=== PATIENT | male | born 1960 | race Caucasian/White ===

== ENCOUNTER 2017-07-01 08:45 | Emergency (ER) | payer BC ==
--- OUTSIDE RECORDS SUMMARY | 2017-07-01 08:47 | XMS REPORT | Clinical Summary ---
:1960 Author Organization [facility] Address [address] [place] [address] Care Team Providers Name Role Phone Asked, No Pcp Primary Care Provider Unavailable Allergies Active Allergy Reactions Severity Noted Date Comments Sulfa (Sulfonamide Antibiotics) 02/22/2016 Current Medications Prescription Sig. Disp. Refills Start Date End Date Status azithromycin TK 1 T PO D UTD 0 02/18/2016 Active (ZITHROMAX) 250 MG PER PACKAGE tablet DIRECTIONS sitagliptin-metfor Take 2 tablets Active min (JANUMET) by mouth daily. 50-1,000 mg per tablet fluticasone 1 spray into 16 g 2 02/22/2016 Active (FLONASE) 50 each nostril mcg/actuation daily. nasal spray DULERA 200-5 03/26/2016 Active mcg/actuation inhaler JARDIANCE 25 mg 03/14/2016 Active tablet albuterol sulfate Inhale 180 mcg 1 each 2 06/06/2016 Active 90 mcg/actuation every 4 (four) aerosol powdr hours. breath activated montelukast TAKE 1 TABLET(10 90 tablet 1 07/04/2016 Active (SINGULAIR) 10 mg MG) BY MOUTH tablet EVERY NIGHT mometasone-formote Inhale 1 puff 2 13 g 3 08/04/2016 Active rol (DULERA 200) (two) times a 200-5 day. mcg/actuation inhaler omeprazole TAKE 1 30 capsule 2 08/22/2016 Active (PriLOSEC) 20 MG CAPSULE(20 MG) capsule BY MOUTH DAILY amLODIPine Take 1 tablet 30 tablet 0 02/22/2016 (NORVASC) 10 MG (10 mg total) by 7 tablet mouth daily. cetirizine Take 1 tablet 30 tablet 2 02/22/2016 (ZyrTEC) 10 MG (10 mg total) by 7 tablet mouth daily. mometasone-formote Inhale 2 puffs 2 13 g 3 04/06/2016 Discontinued rol (DULERA 200) (two) times a 7 200-5 day. mcg/actuation inhaler omeprazole Take 1 capsule 30 capsule 1 06/06/2016 Discontinued (PriLOSEC) 20 MG (20 mg total) by 7 capsule mouth daily for 90 days. montelukast TAKE 1 TABLET(10 30 tablet 0 06/22/2016 Discontinued (SINGULAIR) 10 mg MG) BY MOUTH 7 tablet EVERY NIGHT Active Problems Problem Noted Date NOEMY (obstructive sleep apnea) 06/11/2016 Gastroesophageal reflux disease without esophagitis 06/11/2016 Moderate persistent asthma without complication 02/29/2016 Seasonal allergic rhinitis due to pollen 02/29/2016 Morbid obesity due to excess calories 02/29/2016 Type 2 diabetes mellitus with complication 02/29/2016 Encounters Date Type Specialty Care Team Description 08/24/2016 Telephone Pulmonology Carlita Flood MA 08/19/2016 Refill Pulmonology Rossana Rhodes MD 08/08/2016 Orders Only Pulmonology Mariela Hyde MA Moderate persistent asthma without complication; Seasonal allergic rhinitis due to pollen; NOEMY (obstructive sleep apnea) 08/04/2016 Office Visit Pulmonology Rossana Rhodes MD Moderate persistent asthma without complication (Primary Dx); Seasonal allergic rhinitis due to pollen; NOEMY (obstructive sleep apnea); Morbid obesity due to excess calories 07/04/2016 Refill Pulmonology Nneka Vanessa MA after 06/30/2016 Immunizations Name Dates Previously Given Next Due INFLUENZA QUAD PF (0.5ML VIAL) 02/29/2016 Family History Medical History Relation Name Comments Cancer Father prostate Allergies Mother Hypertension Mother Relation Name Status Comments Father (Age 92) Mother (Age 96) Social History Tobacco Use Types Packs/Day Years Used Date Never Smoker Alcohol Use Drinks/Week oz/Week Comments No Sex Assigned at Date Recorded Not on file Last Filed Vital Signs Vital Sign Reading Time Taken Blood Pressure 138/92 08/04/2016 3:35 PM CDT Pulse 118 08/04/2016 3:35 PM CDT Temperature 36.4 C (97.6 F) 08/04/2016 3:35 PM CDT Respiratory Rate - - Oxygen Saturation 94% 08/04/2016 3:35 PM CDT Inhaled Oxygen Concentration - - Weight 130 kg (286 lb 6.4 oz) 08/04/2016 3:35 PM CDT Height 175.3 cm (5' 9") 08/04/2016 3:35 PM CDT Body Mass Index 42.29 08/04/2016 3:35 PM CDT Plan of Treatment Health Maintenance Due Date Last Done Comments FOOT EXAM 1969 OPHTHALMOLOGY EXAM 1969 URINE MICROALBUMIN 1969 COLONOSCOPY 2009 INFLUENZA VACCINE 11/01/2016 02/29/2016 Results Ambulatory referral to Sleep Medicine (08/08/2016 3:45 PM)after 06/30/2016 Insurance Payer Benefit Plan / Group Subscriber ID Type Phone Address BCBS BCBS CHOICE PPO/FEDERAL EMPL PPO xxxxxxxxxxxx PPO
[2017-07-01 09:38] LABS: Urine Blood NEGATIVE (NEG); Urine Glucose 2+ (NEG); Urine Protein NEGATIVE (NEG); Urine pH 5.5 (5.0-7.0)
[2017-07-01 09:51] LABS: Absolute Lymphocytes (CBC) 2.5 K/uL (0.7-4.9); Absolute Monocytes 0.7 K/uL (0.1-1.3); Basophils % 1.3 % (0-1.3); Eosinophils % 1.8 % (0-4.4); Hematocrit 47.1 % (39.6-49.0); Lymphocytes % 26.2 % (15.3-44.8); MCH 25.4 pg (27.0-35.0); MCV 80.7 fL (80-100); MPV 9.4 fL (7.6-11.3); Monocytes % 7.8 % (3.3-12.3); RBC Red Blood Cell Count 5.83 M/uL (4.33-5.43)
[2017-07-01 10:01] LABS: BUN Blood Urea Nitrogen 15 mg/dL (6-20); Glucose Level 329 mg/dL (65-120)
[2017-07-01 10:02] LABS: Bicarbonate 30 mEq/L (21-31); Sodium Level 138 mEq/L (135-145)
[2017-07-01] MEDS ORDERED: NA CHLORIDE 0.9% 1,000 ML ONE (10:10)
[2017-07-01] MEDS ORDERED: ACETAMINOPHEN 500 MG TAB ONE (10:10)
--- NOTE | 2017-07-01 11:06 | EDPHYS ---
Physician Documentation [facility] Name: Jose E Yañez Age: 57 yrs Sex: Male : 1960 Arrival Date: 07/01/2017 Time: 08:49 Bed 18 Private MD: ED Physician Aly Ortega HPI: 07/01 09:25 This 57 yrs old Male presents to ER via Ambulatory with complaints of kb Headache, High Blood Sugar. 09:25 The patient or guardian reports hyperglycemia, that was potentially precipitated by has kb been out of meds for a couple of weeks. Onset: The symptoms/episode began/occurred 2 week(s) ago. Associated signs and symptoms: Pertinent positives: None. Current symptoms: In the emergency department the patient's symptoms are unchanged from the initial presentation. The patient has experienced similar episodes in the past, chronically. The patient has not recently seen a physician. 09:26 Pt states "my insurance changed to [employer] and my director of maternity services didn't pay kb attention when they requested 3 month refills so I have been out of my meds." Reports BGL in the 300s for the past couple of weeks, but this morning it was 400. 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 Also reports headache that started at 0300. Did not take anything for pain. . Historical: - Allergies: 09:21 Sulfa (Sulfonamide Antibiotics); em - Home Meds: 09:30 Xarelto 20 mg oral tab 1 tab once daily [Active]; metoprolol tartrate 25 mg Oral tab em [Active]; rosuvastatin 5 mg oral tab [Active]; Janumet XR 50-1,000 mg oral TM24 [Active]; - PMHx: 09:21 Diabetes - NIDDM; Atrial Fib; em - PSHx: 09:21 right foot surgery; em - Immunization history:: Adult Immunizations up to date. - Social history:: Smoking status: Patient/guardian denies using tobacco. ROS: 09:26 Constitutional: Negative for fever, chills, and weight loss, Cardiovascular: Negative kb for chest pain, palpitations, and edema, Respiratory: Negative for shortness of breath, cough, wheezing, and pleuritic chest pain, Abdomen/GI: Negative for abdominal pain, nausea, vomiting, diarrhea, and constipation, : Negative for injury, bleeding, discharge, and swelling, MS/Extremity: Negative for injury and deformity, Skin: Negative for injury, rash, and discoloration. 09:26 Neuro: Positive for headache, Negative for altered mental status, dizziness, gait disturbance, hearing loss, loss of consciousness, numbness, seizure activity, speech changes, syncope, near syncope, tingling, tinnitus, tremor, visual changes, weakness. Exam: 09:26 Constitutional: This is a well developed, well nourished patient who is awake, alert, kb and in no acute distress. Head/Face: Normocephalic, atraumatic. ENT: Nares patent. No nasal discharge, no septal abnormalities noted. Tympanic membranes are normal and external auditory canals are clear. Oropharynx with no redness, swelling, or masses, exudates, or evidence of obstruction, uvula midline. Mucous membranes moist. Neck: Trachea midline, no thyromegaly or masses palpated, and no cervical lymphadenopathy. Supple, full range of motion without nuchal rigidity, or vertebral point tenderness. No Meningismus. Chest/axilla: Normal chest wall appearance and motion. Nontender with no deformity. No lesions are appreciated. Cardiovascular: Regular rate and rhythm with a normal S1 and S2. No gallops, murmurs, or rubs. Normal PMI, no JVD. No pulse deficits. Respiratory: Lungs have equal breath sounds bilaterally, clear to auscultation and percussion. No rales, rhonchi or wheezes noted. No increased work of breathing, no retractions or nasal flaring. Abdomen/GI: Soft, non-tender, with normal bowel sounds. No distension or tympany. No guarding or rebound. No evidence of tenderness throughout. Skin: Warm, dry with normal turgor. Normal color with no rashes, no lesions, and no evidence of cellulitis. MS/ Extremity: Pulses equal, no cyanosis. Neurovascular intact. Full, normal range of motion. Neuro: Awake and alert, GCS 15, oriented to person, place, time, and situation. Cranial nerves II-XII grossly intact. Motor strength 5/5 in all extremities. Sensory grossly intact. Cerebellar exam normal. Normal gait. Vital Signs: 09:21 BP 124 / 83; Pulse 64; Resp 16; Temp 98.1; Pulse Ox 96% on R/A; Weight 129.27 kg; em Height 5 ft. 9 in. (175.26 cm); Pain 6/10; 10:17 BP 118 / 70; Pulse 61; Resp 18; Pulse Ox 96% on R/A; em 11:12 BP 132 / 69; Pulse 67; Resp 18; Pulse Ox 99% on R/A; Pain 3/10; em 09:21 Body Mass Index 42.09 (129.27 kg, 175.26 cm) em MDM: 09:04 Patient medically screened. kb 09:26 Data reviewed: vital signs, nurses notes. Data interpreted: Pulse oximetry: on room air kb is 96 %. Interpretation: normal. 11:04 Counseling: I had a detailed discussion with the patient and/or guardian regarding: the kb historical points, exam findings, and any diagnostic results supporting the discharge/admit diagnosis, lab results, the need for outpatient follow up, a family practitioner, to return to the emergency department if symptoms worsen or persist or if there are any questions or concerns that arise at home. 07/01 09:19 Order name: CBC with Diff; Complete Time: 10:00 kb 07/01 09:19 Order name: Basic Metabolic Panel; Complete Time: 10:05 kb 07/01 09:19 Order name: Urine Dipstick-Ancillary (obtain specimen); Complete Time: 09:52 kb 07/01 09:32 Order name: Urine Dipstick--Ancillary (enter results); Complete Time: 09:40 ms Administered Medications: 09:55 Drug: NS 0.9% 1000 ml Route: IV; Rate: 1000 ml; Site: left antecubital; em 10:30 Follow up: IV Status: Completed infusion; IV Intake: 1000ml em 09:55 Drug: Tylenol 1000 mg Route: PO; em 10:30 Follow up: Response: No adverse reaction; Pain is decreased em Point of Care Testing: Blood Glucose: 09: Blood Glucose: 286 mg/dL; em 10:52 Blood Glucose: 246 mg/dL; em Ranges: Critical Glucose Levels:Adult <50 mg/dl or >400 mg/dl <40 mg/dl or >180 mg/dl Disposition: 07/01/17 11:05 Discharged to Home. Impression: Hyperglycemia, unspecified. - Condition is Stable. - Discharge Instructions: Hyperglycemia, [id number], Type 2 Diabetes Mellitus, Adult, [id number]. - Medication Reconciliation Form, Thank You Letter, Antibiotic Education, Prescription Opioid Use form. - Follow up: Emergency Department; When: As needed; Reason: Worsening of condition. Follow up: Private Physician; When: 2 - 3 days; Reason: Recheck today's complaints, Continuance of care, Re-evaluation by your physician. Addendum: 07/03/2017 07:23 Co-signature as Attending Physician, Aly Ortega MD. g s Signatures: Dispatcher [employer] EDVonnie Ruffin, LUIS ALBERTO-C LUIS ALBERTO-Shekhar Dominguez, ENGINEERING SPECIALIST ENGINEERING SPECIALIST em Aly Ortega MD MD
--- NOTE | 2017-07-01 11:06 | ER ---
Nurse's Notes [facility] Name: Jose E Yañez Age: 57 yrs Sex: Male : 1960 Arrival Date: 07/01/2017 Time: 08:49 Bed 18 Private MD: Diagnosis: Hyperglycemia, unspecified Presentation: 07/01 09:15 Presenting complaint: Patient states: having a headache that started this morning at em 0300, also c/o having high sugar that was near 300, has note taken medications in over a week. Transition of care: patient was not received from another setting of care. Onset of symptoms was July 01, 2017. Care prior to arrival: None. 09:15 Method Of Arrival: Ambulatory em 09:30 Acuity: IVANNA 3 iw Triage Assessment: 09:21 General: Appears in no apparent distress. comfortable, Behavior is calm, cooperative. em Pain: Denies pain. Pain currently is 6 out of 10 on a pain scale. Pain began 0300 Also complains of no other associated symptoms. Neuro: Level of Consciousness is awake, alert, obeys commands, Oriented to person, place, time, situation, Cash Management Specialist are equal bilaterally Moves all extremities. Gait is steady, Speech is normal, Reports headache frontal area. 09:21 Headache History: Denies prior headaches. em Historical: - Allergies: 09:21 Sulfa (Sulfonamide Antibiotics); em - Home Meds: 09:30 Xarelto 20 mg oral tab 1 tab once daily [Active]; metoprolol tartrate 25 mg Oral tab em [Active]; rosuvastatin 5 mg oral tab [Active]; Janumet XR 50-1,000 mg oral TM24 [Active]; - PMHx: 09:21 Diabetes - NIDDM; Atrial Fib; em - PSHx: 09:21 right foot surgery; em - Immunization history:: Adult Immunizations up to date. - Social history:: Smoking status: Patient/guardian denies using tobacco. Screenin:25 Abuse screen: Denies threats or abuse. Nutritional screening: No deficits noted. em Tuberculosis screening: No symptoms or risk factors identified. Fall Risk None identified. Assessment: 09:21 General: Appears in no apparent distress. comfortable, Behavior is calm, cooperative, em Reports headache that began this morning at 0300, ran out of medication 1 week ago. Pain: Complains of pain in right temporal area Pain does not radiate. Pain currently is 5 out of 10 on a pain scale. Quality of pain is described as pressure, Pain began 0300. Neuro: Level of Consciousness is awake, alert, obeys commands, Oriented to person, place, time, situation, Cash Management Specialist are equal bilaterally Moves all extremities. Gait is steady, Speech is normal, Facial symmetry appears normal. Cardiovascular: Capillary refill < 3 seconds Patient's skin is warm and dry. Respiratory: Airway is patent Respiratory effort is even, unlabored, Respiratory pattern is regular, symmetrical. GI: Abdomen is flat, non-distended. : Urine is clear. EENT: No signs and/or symptoms were reported regarding the EENT system. Derm: Skin is intact, Skin is pink, warm \T\ dry. Musculoskeletal: Range of motion: intact in all extremities. 09:30 Reassessment: Patient appears in no apparent distress at this time. I agree with above iw assessment by Shekhar Lockwood LVN. 10:17 Reassessment: Patient appears in no apparent distress at this time. Patient is alert, em oriented x 3, equal unlabored respirations, skin warm/dry/pink. Patient states feeling better. 11:12 Reassessment: Patient appears in no apparent distress at this time. Patient and/or em family updated on plan of care and expected duration. Pain level reassessed. Patient is alert, oriented x 3, equal unlabored respirations, skin warm/dry/pink. Patient states feeling better. Patient states symptoms have improved. Vital Signs: 09:21 BP 124 / 83; Pulse 64; Resp 16; Temp 98.1; Pulse Ox 96% on R/A; Weight 129.27 kg; em Height 5 ft. 9 in. (175.26 cm); Pain 6/10; 10:17 BP 118 / 70; Pulse 61; Resp 18; Pulse Ox 96% on R/A; em 11:12 BP 132 / 69; Pulse 67; Resp 18; Pulse Ox 99% on R/A; Pain 3/10; em 09:21 Body Mass Index 42.09 (129.27 kg, 175.26 cm) em ED Course: 08:49 Patient arrived in ED. mr 09:03 Shekhar Lockwood LVN is Primary Nurse. em 09:04 Vonnie Monaco FNP-C is PHCP. kb 09:04 Aly Ortega MD is Attending Physician. kb 09:21 Arm band placed on. em 09:25 Patient has correct armband on for positive identification. Bed in low position. Call em light in reach. Side rails up X2. 09:25 No provider procedures requiring assistance completed. em 09:50 Initial lab(s) drawn, by me, sent to lab. Inserted saline lock: 22 gauge in left [facility] antecubital area, using aseptic technique. Blood collected. 09:52 Basic Metabolic Panel Sent. 5 09:52 CBC with Diff Sent. [facility] 10:18 Triage completed. iw 11:24 IV discontinued, intact, bleeding controlled, No redness/swelling at site. Pressure em dressing applied. Administered Medications: :55 Drug: NS 0.9% 1000 ml Route: IV; Rate: 1000 ml; Site: left antecubital; em 10:30 Follow up: IV Status: Completed infusion; IV Intake: 1000ml em 09:55 Drug: Tylenol 1000 mg Route: PO; em 10:30 Follow up: Response: No adverse reaction; Pain is decreased em Point of Care Testing: Blood Glucose: 09:21 Blood Glucose: 286 mg/dL; em 10:52 Blood Glucose: 246 mg/dL; em Ranges: Intake: 10:30 IV: 1000ml; Total: 1000ml. em Outcome: 11:05 Discharge ordered by . kb 11:24 Discharged to home ambulatory. em 11:24 Condition: good 11:24 Discharge instructions given to patient, Instructed on discharge instructions, follow up and referral plans. Demonstrated understanding of instructions, follow-up care. 11:29 Patient left the ED. em Signatures: Vonnie Monaco FNP-C FNP-Nneka Mariano mr LockwoodShekhar, PROGRAM DIR PROGRAM DIR em Meryl Atkins, SANDI RN Nneka Garcia [facility] Corrections: (The following items were deleted from the chart) 10:18 10:17 BP 118 / 70; Pulse 61bpm; Resp 97bpm; Pulse Ox 96% RA; em em
[2017-07-01 11:34] VITALS: TEMP 98.1
[2017-07-01 11:36] VITALS: BP 132/69; O2SAT 99
== END 2017-07-01 11:29 | disposition home or self-care (01) ==
LOC: ER 08:45
DX: E11.65 Type 2 diabetes mellitus with hyperglycemia (principal); I48.91 Unspecified atrial fibrillation; Z79.01 Long term (current) use of anticoagulants; Z88.2 Allergy status to sulfonamides
CPT/HCPCS: 36415; 80048; 81003; 82962; 85025; 96360; 99284; J7030

== ENCOUNTER 2018-07-07 09:54 | Emergency (ER) | payer BC ==
--- OUTSIDE RECORDS SUMMARY | 2018-07-07 09:56 | XMS REPORT | Clinical Summary ---
:1960 Author Organization [facility] Address [address] [place] [address] Care Team Providers Name Role Phone Asked, No Pcp Primary Care Provider Unavailable Allergies Active Allergy Reactions Severity Noted Date Comments Sulfa (Sulfonamide Antibiotics) 02/22/2016 Medications Medication Sig Dispensed Refills Start Date End Date Status azithromycin TK 1 T PO D UTD 0 02/18/2016 Active (ZITHROMAX) 250 MG PER PACKAGE tablet DIRECTIONS sitagliptin-metformin Take 2 tablets by 0 Active (JANUMET) 50-1,000 mg mouth daily. per tablet fluticasone (FLONASE) 1 spray into each 16 g 2 02/22/2016 Active 50 mcg/actuation nostril daily. nasal spray DULERA 200-5 0 03/26/2016 Active mcg/actuation inhaler JARDIANCE 25 mg 0 03/14/2016 Active tablet albuterol sulfate 90 Inhale 180 mcg 1 each 2 06/06/2016 Active mcg/actuation aerosol every 4 (four) powdr breath hours. activated montelukast TAKE 1 TABLET(10 90 tablet 1 07/04/2016 Active (SINGULAIR) 10 mg MG) BY MOUTH EVERY tablet NIGHT mometasone-formoterol Inhale 1 puff 2 13 g 3 08/04/2016 Active (DULERA 200) 200-5 (two) times a day. mcg/actuation inhaler omeprazole (PriLOSEC) TAKE 1 CAPSULE(20 30 capsule 2 08/22/2016 Active 20 MG capsule MG) BY MOUTH DAILY Active Problems Problem Noted Date NOEMY (obstructive sleep apnea) 06/11/2016 Gastroesophageal reflux disease without esophagitis 06/11/2016 Moderate persistent asthma without complication 02/29/2016 Seasonal allergic rhinitis due to pollen 02/29/2016 Morbid obesity due to excess calories 02/29/2016 Type 2 diabetes mellitus with complication 02/29/2016 Immunizations Name Dates Previously Given Next Due INFLUENZA QUAD PF (0.5ML VIAL) 02/29/2016 Family History Medical History Relation Name Comments Cancer Father prostate Allergies Mother Hypertension Mother Relation Name Status Comments Father (Age 92) Mother (Age 96) Social History Tobacco Use Types Packs/Day Years Used Date Never Smoker Alcohol Use Drinks/Week oz/Week Comments No Sex Assigned at Date Recorded Not on file Job Start Date Occupation Industry Not on file Not on file Not on file Travel History Travel Start Travel End No recent travel history available. Last Filed Vital Signs Not on file Plan of Treatment Health Maintenance Due Date Last Done Comments DIABETIC RETINAL EYE EXAM 1960 DIABETIC FOOT EXAM 1969 URINE MICROALBUMIN 1969 COLON CANCER SCREENING 2009 SHINGLES VACCINES (#1) 2009 INFLUENZA VACCINE 11/01/2018 02/29/2016 Results Not on fileafter 07/06/2017 Insurance Payer Benefit Plan / Group Subscriber ID Type Phone Address BCBS BCBS CHOICE PPO/FEDERAL EMPL PPO xxxxxxxxxxxx PPO Guarantor Name Account Type Relation to Date of Phone Billing Address Patient Avelino Vital Personal/Famil Self 1960 [phone] [place] [address] Advance Directives Patient has advance care planning documents on file. For more information, please contact:[place] [address]
--- OUTSIDE RECORDS SUMMARY | 2018-07-07 09:56 | XMS REPORT ---
:1960 Author Organization [facility] Address [address] [place] [address] Dr. Wood [address] [place] [id number] Care Team Providers Name Role Phone Unavailable Unavailable Unavailable Problems This patient has no known problems. Allergies, Adverse Reactions, Alerts This patient has no known allergies or adverse reactions. Medications This patient has no known medications.
[2018-07-07] MEDS ORDERED: HYDROCODONE/APAP 10/325 TAB ONE (10:59)
--- NOTE | 2018-07-07 11:39 | RAD REPORT ---
EXAM DESCRIPTION: RAD - Hip Left 2 View - 07/07/2018 11:06 am CLINICAL HISTORY: Fall, left hip pain COMPARISON: None. FINDINGS: AP and frogleg views of the left hip were obtained. There is no fracture or dislocation. D egenerative changes involve the superior acetabular rim. No AVN or focal femoral head abnormality see n. No soft tissue abnormality. IMPRESSION: Negative left hip examination for acute findings.
[2018-07-07] MEDS ORDERED: ONDANSETRON 4 MG/2 ML VIAL ONE (12:27)
[2018-07-07] MEDS ORDERED: MORPHINE 4 MG/ML SYR ONE (12:27)
--- NOTE | 2018-07-07 13:25 | RAD REPORT ---
EXAM DESCRIPTION: CT - Hip Left Wo Con - 07/07/2018 12:52 pm CLINICAL HISTORY: Fall, pelvic and left hip pain COMPARISON: Left hip same date TECHNIQUE: Axial noncontrast 2 millimeter thick images of the pelvis were obtained with sagittal and coronal 2 millimeter reformatted images generated and reviewed. The CT scan was performed using dose optimization techniques as appropriate to a performed exam incl uding one or more of the following: Automated exposure control, adjustment of the mA and/or kV accord ing to patient size (this includes techniques or standardized protocols for targeted exams where dose is matched to indication/reason for exam) and use of iterative reconstruction technique. FINDINGS: No fracture of the bony pelvis or proximal femurs. No AVN or focal femoral head abnormalit y seen. Patient has degenerative change along the articular surfaces of each femoral head similar rig ht versus left. There degenerative changes along each acetabulum. No femoral head buckling or collaps e. No periarticular mass or hematoma. Skeletal musculature is symmetric. No suspicious soft tissue findi ng. IMPRESSION: Mild bilateral hip joint degenerative change. No fracture or acute finding.
--- NOTE | 2018-07-07 13:42 | EDPHYS ---
Physician Documentation [facility] Name: Jose E Yañez Age: 58 yrs Sex: Male : 1960 Arrival Date: 07/07/2018 Time: 10:07 Bed 18 Private MD: ED Physician Cornelius Gibson HPI: 07/07 10:21 This 58 yrs old Male presents to ER via EMS with complaints of Hip Pain. jmm 10:21 The patient or guardian reports pain. Onset: The symptoms/episode began/occurred jmm gradually, 1 month(s) ago. This is a 58 year old male with a history of atrial fibrillation, dm that presents to the ED with complaints of left hip pain over the past month worsening over the past 3 days. Patient states having ongoing bilaterally knee pain and is currently under the care of Dr. Hargrove for his chronic knee pain. Patient denies fever. . Historical: - Allergies: 10:10 Sulfa (Sulfonamide Antibiotics); aj1 - Home Meds: 10:10 Janumet XR 50-1,000 mg Oral TM24 [Active]; Xarelto 20 mg Oral tab 1 tab once daily aj1 [Active]; rosuvastatin 5 mg Oral tab [Active]; metoprolol tartrate 25 mg Oral tab [Active]; - PMHx: 10:10 Atrial Fib; Diabetes - NIDDM; aj1 - Immunization history:: Flu vaccine is not up to date. - Social history:: Smoking status: Patient/guardian denies using tobacco. - Ebola Screening: : Patient denies travel to an Ebola-affected area in the 21 days before illness onset. ROS: 10:32 Constitutional: Negative for fever, chills, and weight loss, Cardiovascular: Negative jmm for chest pain, palpitations, and edema, Respiratory: Negative for shortness of breath, cough, wheezing, and pleuritic chest pain. 10:32 MS/extremity: Positive for pain. 10:32 All other systems are negative. Exam: 10:32 Head/Face: atraumatic. Eyes: EOMI, no conjunctival erythema appreciated ENT: Moist jmm Mucus Membranes Neck: Trachea midline, Supple Chest/axilla: Normal chest wall appearance and motion. Cardiovascular: Regular rate and rhythm. No edema appreciated Respiratory: Normal respirations, no respiratory distress appreciated Abdomen/GI: Non distended, soft Back: Normal ROM 10:32 Constitutional: The patient appears in no acute distress, alert, awake. 10:32 Musculoskeletal/extremity: ROM: painful flexion of the left hip appreciate, left lateral hip tender to palpation. 10:32 Skin: Appearance: Color: normal in color. 10:32 Neuro: Orientation: is normal, Mentation: is normal, Memory: is normal. 10:32 Psych: Behavior/mood is pleasant, cooperative. Vital Signs: 10:10 BP 164 / 75; Pulse 94; Resp 20; Temp 98.7(O); Pulse Ox 100% on R/A; Weight 120.66 kg aj1 (R); Height 5 ft. 9 in. (175.26 cm) (R); Pain 7/10; 11:10 BP 160 / 80; Pulse 93; Resp 18; Pulse Ox 97% on R/A; aj1 12:08 BP 164 / 82; Pulse 102; Resp 20; Pulse Ox 100% on R/A; aj1 14:18 BP 160 / 52; Pulse 88; Resp 20; Pulse Ox 100% on R/A; aj1 10:10 Body Mass Index 39.28 (120.66 kg, 175.26 cm) aj1 MDM: 10:14 Patient medically screened. [facility] 13:39 Data reviewed: vital signs, nurses notes. Counseling: I had a detailed discussion with sherman the patient and/or guardian regarding: the historical points, exam findings, and any diagnostic results supporting the discharge/admit diagnosis, radiology results, the need for outpatient follow up, to return to the emergency department if symptoms worsen or persist or if there are any questions or concerns that arise at home. ED course: Xray negative for fracture. Patient was unable to ambulate due to pain. Order CT hip to rule out fracture. patient states he feels much better in the ED. Pain is lateral, CT negative. Symptoms appear consistent with greater trochanter bursitis. . 07/07 10:20 Order name: Hip Left 2 View XRAY; Complete Time: 11:45 [facility] 07/07 12:16 Order name: Hip Left Wo Con; Complete Time: 13:27 EDAL 07/07 12:07 Order name: Saline Lock; Complete Time: 12:24 [facility] Administered Medications: 10:21 CANCELLED (lower dose used): Ketorolac 60 mg IM once [facility] 10:22 CANCELLED (different medication used): Ketorolac 30 mg IM once [facility] 10:49 Drug: Nancy 10 mg-325 mg 1 tabs Route: PO; aj1 12:30 Follow up: Response: No adverse reaction; Pain is decreased aj1 12:24 Drug: morphine 4 mg Route: IVP; Site: right forearm; aj1 13:30 Follow up: Response: No adverse reaction; Pain is decreased aj1 12:24 Drug: Zofran 4 mg Route: IVP; Site: right forearm; aj1 13:30 Follow up: Response: No adverse reaction aj1 Disposition: 07/07/18 13:41 Discharged to Home. Impression: Pain in left hip. - Condition is Stable. - Discharge Instructions: Hip Pain. - Prescriptions for Ultracet 37.5- 325 mg Oral Tablet - take 1 tablet by ORAL route every 6 hours - for up to 5 days; do not exceed 8 tablets per day.; 20 tablet. - Medication Reconciliation Form, Thank You Letter, Antibiotic Education, Prescription Opioid Use form. - Follow up: Brooks Hargrove MD; When: 2 - 3 days; Reason: Recheck today's complaints, Continuance of care, Re-evaluation by your physician. Addendum: 07/09/2018 07:45 Co-signature as Attending Physician, Cornelius Gibson MD I agree with the assessment and c cantu plan of care. Signatures: Dispatcher [employer] EDMS Kaylee Dong RN RN aj1 Cornelius Gibson MD MD cha Mickail, Joel, PA PA jmm Baxter, Heather, RN RN Corrections: (The following items were deleted from the chart) 07/07 10:21 10:20 Ketorolac 60 mg IM once ordered. [facility] 10:22 10:21 Ketorolac 30 mg IM once ordered. [facility] 10:23 10:21 This is a 58 year old male with a history of atrial fibrillation, dm that sherman presents to the ED. [facility] 10:32 10:21 This is a 58 year old male with a history of atrial fibrillation, dm that sherman presents to the ED with complaints of left hip pain over the past month worsening over the past 3 days. Patient states having ongoing bilaterally knee pain and is currently under the.. sherman 14:28 13:41 07/07/2018 13:41 Discharged to Home. Impression: Pain in left hip. Condition is hb Stable. Forms are Medication Reconciliation Form, Thank You Letter, Antibiotic Education, Prescription Opioid Use. Follow up: Brooks Hargrove; When: 2 - 3 days; Reason: Recheck today's complaints, Continuance of care, Re-evaluation by your physician. sherman
--- NOTE | 2018-07-07 13:42 | ER ---
Nurse's Notes [facility] Name: Jose E Yañez Age: 58 yrs Sex: Male : 1960 Arrival Date: 07/07/2018 Time: 10:07 Bed 18 Private MD: Diagnosis: Pain in left hip Presentation: 07/07 10:07 Presenting complaint: Patient states: He slid out of bed this morning and he was not aj1 able to get up afterwards. Reports pain to left hip. States that he has had left hip pain for the past 3 weeks, but it wasn't this severe until this morning when he slipped out of bed. Patient reports that he has been seeing Dr. Hargrove for his hip pain and is scheduled for a MRI on July 11. Transition of care: patient was not received from another setting of care. Onset of symptoms was July 07, 2018. Risk Assessment: Do you want to hurt yourself or someone else? Patient reports no desire to harm self or others. Initial Sepsis Screen: Does the patient meet any 2 criteria? No. Patient's initial sepsis screen is negative. Does the patient have a suspected source of infection? No. Patient's initial sepsis screen is negative. Care prior to arrival: None. 10:07 Method Of Arrival: [facility] aj1 10:07 Acuity: IVANNA 3 aj1 Triage Assessment: 10:10 General: Appears in no apparent distress. uncomfortable, Behavior is calm, cooperative, aj1 appropriate for age. Pain: Complains of pain in left hip Pain does not radiate. Pain currently is 7 out of 10 on a pain scale. Quality of pain is described as sharp. Historical: - Allergies: 10:10 Sulfa (Sulfonamide Antibiotics); aj1 - Home Meds: 10:10 Janumet XR 50-1,000 mg Oral TM24 [Active]; Xarelto 20 mg Oral tab 1 tab once daily aj1 [Active]; rosuvastatin 5 mg Oral tab [Active]; metoprolol tartrate 25 mg Oral tab [Active]; - PMHx: 10:10 Atrial Fib; Diabetes - NIDDM; aj1 - Immunization history:: Flu vaccine is not up to date. - Social history:: Smoking status: Patient/guardian denies using tobacco. - Ebola Screening: : Patient denies travel to an Ebola-affected area in the 21 days before illness onset. Screenin:12 Abuse screen: Denies threats or abuse. Denies injuries from another. Nutritional aj1 screening: No deficits noted. Tuberculosis screening: No symptoms or risk factors identified. 14:27 Fall Risk Fall in past 12 months (25 points). No secondary diagnosis (0 pts). No IV (0 aj1 pts). Ambulatory Aid- Crutches/Cane/Walker (15 pts). Gait- Weak (10 pts.). Mental Status- Oriented to own ability (0 pts). Total Ghotra Fall Scale indicates High Risk Score (45 or more points). As available patient and family educated on Fall Prevention Program and Strategies. Assessment: 10:12 General: Appears in no apparent distress. uncomfortable, Behavior is calm, cooperative, aj1 appropriate for age. Pain: Complains of pain in left hip Pain does not radiate. Pain currently is 7 out of 10 on a pain scale. Quality of pain is described as sharp, Pain began 3 weeks ago. Neuro: Level of Consciousness is awake, alert, obeys commands, Oriented to person, place, time, situation. Cardiovascular: Patient's skin is warm and dry. Respiratory: Airway is patent Respiratory effort is even, unlabored, Respiratory pattern is regular, symmetrical. GI: No signs and/or symptoms were reported involving the gastrointestinal system. : No signs and/or symptoms were reported regarding the genitourinary system. EENT: No signs and/or symptoms were reported regarding the EENT system. Derm: No signs and/or symptoms reported regarding the dermatologic system. Skin is pink, warm \T\ dry. normal. Musculoskeletal: Range of motion: limited in left hip. 11:15 Reassessment: Patient appears in no apparent distress at this time. No changes from aj1 previously documented assessment. Patient and/or family updated on plan of care and expected duration. Pain level reassessed. Patient is alert, oriented x 3, equal unlabored respirations, skin warm/dry/pink. 12:07 Reassessment: Attempted to ambulate patient, patient was unable to bear weight on his aj1 left hip due to pain. Notified VARSHA Del Castillo. 13:15 Reassessment: Patient appears in no apparent distress at this time. No changes from aj1 previously documented assessment. Patient and/or family updated on plan of care and expected duration. Pain level reassessed. Patient is alert, oriented x 3, equal unlabored respirations, skin warm/dry/pink. 14:02 Reassessment: VARSHA Del Castillo at bedside. aj1 Vital Signs: 10:10 BP 164 / 75; Pulse 94; Resp 20; Temp 98.7(O); Pulse Ox 100% on R/A; Weight 120.66 kg aj1 (R); Height 5 ft. 9 in. (175.26 cm) (R); Pain 7/10; 11:10 BP 160 / 80; Pulse 93; Resp 18; Pulse Ox 97% on R/A; aj1 12:08 BP 164 / 82; Pulse 102; Resp 20; Pulse Ox 100% on R/A; aj1 14:18 BP 160 / 52; Pulse 88; Resp 20; Pulse Ox 100% on R/A; aj1 10:10 Body Mass Index 39.28 (120.66 kg, 175.26 cm) aj1 ED Course: 10:07 Patient arrived in ED. aj1 10:07 Ankur Wetzel PA is PHCP. jmm 10:07 Cornelius Gibson MD is Attending Physician. jmm 10:09 Triage completed. aj1 10:10 Arm band placed on. aj1 10:12 Patient has correct armband on for positive identification. Bed in low position. Call aj1 light in reach. Side rails up X 1. awake overnight monitor on. Pulse ox on. NIBP on. 10:12 No provider procedures requiring assistance completed. aj1 10:40 Kaylee Dong, SANDI is Primary Nurse. aj1 10:59 X-ray completed. Portable x-ray completed in exam room. Patient tolerated procedure la2 well. 11:06 Hip Left 2 View XRAY In Process Unspecified. EDMS 12:52 Hip Left Wo Con In Process Unspecified. EDMS 13:00 Inserted saline lock: 22 gauge in right forearm, using aseptic technique. aj1 13:41 Brooks Hargrove MD is Referral Physician. jmm 14:18 IV discontinued, intact, bleeding controlled, No redness/swelling at site. Pressure aj1 dressing applied. Administered Medications: 10:21 CANCELLED (lower dose used): Ketorolac 60 mg IM once jmm 10:22 CANCELLED (different medication used): Ketorolac 30 mg IM once [facility] 10:49 Drug: Valier 10 mg-325 mg 1 tabs Route: PO; [facility] 12:30 Follow up: Response: No adverse reaction; Pain is decreased aj 12:24 Drug: morphine 4 mg Route: IVP; Site: right forearm; aj1 13:30 Follow up: Response: No adverse reaction; Pain is decreased aj 12:24 Drug: Zofran 4 mg Route: IVP; Site: right forearm; aj1 13:30 Follow up: Response: No adverse reaction [facility] Outcome: 13:41 Discharge ordered by MD. maría elena 14:28 Patient left the ED. 14:29 Discharged to home via wheelchair, with family. [facility] 14:29 Condition: good 14:29 Discharge instructions given to patient, Instructed on discharge instructions, follow up and referral plans. medication usage, Demonstrated understanding of instructions, follow-up care, medications, Prescriptions given X 1. Signatures: Dispatcher [employer] Kaylee Becerra RN RN aj Ankur Wetzel PA PA jmm Baxter, Heather, RN RN Janelle Neal2
[2018-07-07 14:52] VITALS: TEMP 98.7
[2018-07-07 14:54] VITALS: O2SAT 100
[2018-07-07 14:55] VITALS: BP 160/52
== END 2018-07-07 14:28 | disposition home or self-care (01) ==
LOC: ER 09:54
DX: M25.552 Pain in left hip (principal); E11.9 Type 2 diabetes mellitus without complications; I48.91 Unspecified atrial fibrillation; Z79.01 Long term (current) use of anticoagulants; Z88.2 Allergy status to sulfonamides
CPT/HCPCS: 73700; 96374; 96375; 99284; J2405

== ENCOUNTER 2019-08-19 12:53 | Inpatient (IN) | payer BC, SELFPAY ==
--- OUTSIDE RECORDS SUMMARY | 2019-08-20 12:58 | XMS REPORT ---
:1960 Author Organization [facility] t Address [address] [place] [address] Care Team Providers Name Role Phone Gardenia POWER, A Primary Care Physician Aminta Mayfield MD Attending Clinician Payers Payer Name Policy Type Policy Number Effective Date Expiration Date S leandra [id number] xxxxxxxxxxxx 2017 [facility] CHOICE 00:00:00 [facility] PPO/[employer]PL PPOxxxxxxxxxxx 2017-Pres entPPO Problems Condition Condition Condition Status Onset Resolution Last Treating Co mments Source Name Details Category Date Date Treatment Clinician Date Primary Primary Disease Active [facility] osteoarthr osteoarthr 9-13 [facility] th[facility] itis of itis of 00:00: st left knee left knee 00 NOEMY NOEMY Disease Active [facility] (obstructi (obstructi 3-11 Me odi ve sleep ve sleep 00:00: st apnea) apnea) 00 Gastroesop Gastroesop Disease Active [place] hageal hageal 3-11 [facility] reflux reflux 00:00: st disease disease 00 without without esophagiti esophagiti s s Moderate Moderate Disease Active 2015-04 [place] persistent persistent 04-30 Me thodi asthma asthma 00:00: st without without 00 complicati complicati on on Seasonal Seasonal Disease Active 2015-04 [place] allergic allergic 04-30 [facility] rhinitis rhinitis 00:00: st due to due to 00 pollen pollen Morbid Morbid Disease Active 2015-04 [facility] obesity obesity 04-30 [facility] due to due to 00:00: st excess excess 00 calories calories Type 2 Type 2 Disease Active 2015-04 [facility] diabetes diabetes 1-28 [facility] mellitus mellitus 00:00: st with with 00 complicati complicati on on Allergies, Adverse Reactions, Alerts Allergy Allergy Status Severity Reaction(s) Onset Inactive Treating Comm ents Source Name Type Date Date Clinician Johnson Daniel Active 2015-04 [facility] (Sulfona ty to 04-23 [facility] mide adverse 00:00: st Antibiot reaction 00 ics) s to drug Family History Family Member Diagnosis Comments Start Date Stop Date Source Natural father Cancer [facility] Natural mother Allergies [facility] thodist Natural mother Hypertension [facility] Social History Social Habit Start Date Stop Date Quantity Comments Source Sex Assigned At [facility] ethod[facility] Alcohol intake 2019-01-04 2019-01-04 Current [facility] thodist 00:00:00 00:00:00 non-drinker of alcohol (finding) Smoking Status Start Date Stop Date Source Never smoker [facility] t Medications Ordered Filled Start Stop Current Ordering Indication Dosage Frequency Signature Comments Components Source Medication Medication Date Date Medication? Clinician (SIG) Name Name sitagliptin 2018-04 Yes 2{tbl} QD Take 2 [place] -metformin 0-04 tablets by Met [facility] (JANUMET) 15:01: mouth st 50-1,000 mg 42 daily. per tablet omeprazole Yes TAKE 1 [place] (PriLOSEC) 5-22 CAPSULE(20 Met [facility] 20 MG 00:00: MG) BY st capsule 00 MOUTH DAILY mometasone- Yes 1{puff} Q.5D Inhale 1 [facility] formoterol 5-04 puff 2 [facility] (DULERA 00:00: (two) st 200) 200-5 00 times a mcg/actuati day. on inhaler montelukast Yes TAKE 1 [place] (SINGULAIR) 4-03 TABLET(10 Met h[facility] 10 mg 00:00: MG) BY st tablet 00 MOUTH EVERY NIGHT albuterol Yes 180ug Q4H Inhale 180 [place] sulfate 90 3-06 mcg every Meth rita mcg/actuati 00:00: 4 (four) st on aerosol 00 hours. powdr breath activated DULERA 2015-04 Yes [facility] 200-5 2-24 [facility] mcg/actuati 00:00: st on inhaler 00 JARDIANCE 2015-04 Yes [facility] 25 mg 2-12 [facility] tablet 00:00: st 00 fluticasone 2015-04 Yes 1{spray QD 1 spray [place] (FLONASE) 1-21 } into each [facility]o di 50 00:00: nostril st mcg/actuati 00 daily. on nasal spray azithromyci 2015-04 Yes TK 1 T PO [place] 1-17 D UTD PER [facility] (ZITHROMAX) 00:00: PACKAGE st 250 MG 00 DIRECTIONS tablet Immunizations Ordered Immunization Filled Immunization Date Status Commen ts Source Name Name INFLUENZA QUAD PF 2016-02-29 Completed [facility] (0.5ML VIAL) 00:00:00 [facility] Vital Signs Vital Name Observation Time Observation Value Comments Source Body height 2019-01-04 15:01:00 175.3 cm [facility] Body weight 2019-01-04 15:01:00 107.956 kg [facility] BMI 2019-01-04 15:01:00 35.15 kg/m2 [facility] Procedures Procedure Date / Time Performing Clinician Source Performed HI ARTHROCENTESIS 2019-01-04 15:00:00 Arlene Aguilera ethodist ASPIR&/INJ MAJOR JT/BURSA Reynaga W/O US XR KNEE 4+ VW LEFT 2018-12-14 13:40:29 Chris Mayfield on [facility] MRI LOWER EXTREMITY 2018-08-20 14:10:43 Chris Mayfield [facility] EXTERNAL STUDY Plan of Care Planned Activity Planned Date Details Comments Source Future Scheduled 2019-11-02 INFLUENZA VACCINE [place] [facility] Test 00:00:00 [code = INFLUENZA VACCINE] Future Scheduled 2009 COLONOSCOPY SCREENING [place] [facility] Test 00:00:00 [code = COLONOSCOPY SCREENING] Future Scheduled 2009 SHINGLES VACCINES (#1) [place] [facility] Test 00:00:00 [code = SHINGLES VACCINES (#1)] Future Scheduled 1969 DIABETIC FOOT EXAM [place] [facility] Test 00:00:00 [code = DIABETIC FOOT EXAM] Future Scheduled 1969 URINE MICROALBUMIN [place] [facility] Test 00:00:00 [code = URINE MICROALBUMIN] Future Scheduled 1960 DIABETIC RETINAL EYE Leisa ston [facility] Test 00:00:00 EXAM [code = DIABETIC RETINAL EYE EXAM] Results Test Description Test Time Test Comments Results Result [facility] e Comments Large Joint Arlene Aguilera Arthrocentesis: 4 VARSHA Reynaga [facility] knee, L knee 15:00:00 01/04/2019 10:18 [facility] Arthrocentesis: knee, L kneeConsent given by: patientSite marked: site markedTimeout: Immediately prior to procedure a time out was called to verify the correct patient, procedure, equipment, student support advisor and site/side marked as required Supporting DocumentationIndicatio ns: pain Procedure DetailsPreparation: Patient was prepped and draped in the usual sterile fashionUltrasound guided: noLocation: knee - L knee Left side:Needle size: 18 GApproach: anterolateralLeft knee medications administered: 4 mL hyaluronate sodium, stabilized 88 mg/4 mL; 10 mL lidocaine 10 mg/mL (1 %)Patient tolerance: patient tolerated the procedure well with no immediate complications MRI Lower 2018-12-02 This exam was not [place] Extremity 3 acquired at a [facility] External Study 14:10:54 [facility] facility and has not been interpreted by a [facility] Provider. The exam was imported into our imaging system for comparisons purposes.
--- OUTSIDE RECORDS SUMMARY | 2019-08-20 12:58 | XMS REPORT | Clinical Summary ---
:1960 Author Organization [facility] Address [address] [place] [address] Care Team Providers Name Role Phone Jerri Varner MD Primary Care Provider Allergies Active Allergy Reactions Severity Noted Date Comments Sulfa (Sulfonamide Antibiotics) 6 Medications Medication Sig Dispensed Refills Start Date [...] mcg/actuation inhaler JARDIANCE 25 mg 0 03/14/2016 Act leah tablet albuterol sulfate 90 Inhale 180 mcg [...] (PriLOSEC) TAKE 1 CAPSULE(20 30 capsule 2 7 Active 20 MG capsule MG) BY MOUTH DAILY Active Problems Problem Noted Date Primary osteoarthritis of left knee 12/14/2018 NOEMY (obstructive sleep apnea) 06/11/2016 Gastroesophageal reflux disease without esophagitis Moderate persistent asthma without complication 2015 Seasonal allergic rhinitis due to pollen 02/29/2016 Morbid obesity due to excess calories 02/29/2016 Type 2 diabetes mellitus with complication 02/29/2016 Encounters Date Type Specialty Care Team Description 01/04/2019 Clinical Support Orthopedic Surgery Chris Mayfield Kayley kristen osteoarthritis MD Aminta of left knee (P rimary Dx) 12/14/2018 Hospital Encounter Radiology Chris Mayfield MD 12/14/2018 Office Visit Orthopedic Surgery Chris Mayfield Primary osteoarthritis of left knee (Primary Dx); MD Aminta Acute pain of l eft knee after 08/19/2018 Immunizations Name Administration Dates Next Due INFLUENZA QUAD PF (0.5ML VIAL) 02/29/2016 Family History Medical History Relation Name Comments Cancer Father prostate Allergies Mother Hypertension Mother Relation Name Status Comments Father (Age 92) Mother (Age 96) Social History Tobacco Use Types Packs/Day Years Used Date Never Smoker Smokeless Tobacco: Never Used Alcohol Use Drinks/Week oz/Week Comments No Sex Assigned at Date Recorded Not on file Job Start Date Occupation Industry Not on file Not on file Not on file Travel History Travel Start Travel End No recent travel history available. Last Filed Vital Signs Vital Sign Reading Time Taken Comments Blood Pressure - - Pulse - - Temperature - - Respiratory Rate - - Oxygen Saturation - - Inhaled Oxygen Concentration - - Weight 108 kg (238 lb) 01/04/2019 10:01 AM CDT Height 175.3 cm (5' 9") 01/04/2019 10:01 AM CDT Body Mass Index 35.15 01/04/2019 10:01 AM CDT Plan of Treatment Health Maintenance Due Date Last Done Comments DIABETIC RETINAL EYE EXAM 1960 DIABETIC FOOT EXAM 1969 URINE MICROALBUMIN 1969 COLONOSCOPY SCREENING 2009 SHINGLES VACCINES (#1) 2009 INFLUENZA VACCINE 11/02/2019 02/29/2016 Procedures Procedure Name Priority Date/Time Associated Diagnosis Comme nts PA ARTHROCENTESIS Routine 01/04/2019 10:00 Primary Result s for this ASPIR&/INJ MAJOR AM CDT osteoarthritis of proced ure are in JT/BURSA W/O US left knee the results section. XR KNEE 4+ VW LEFT Routine 12/14/2018 8:40 Acute pain of left Results for this AM CDT knee procedure are i n the results section. MRI LOWER EXTREMITY Routine 08/20/2018 9:10 Resu lts for this EXTERNAL STUDY AM CDT procedure are in the results section. after 08/19/2018 Results Large Joint Arthrocentesis: knee, L knee (01/04/2019 10:00 AM CDT) Narrative Performed At Arlene Aguilera, VARSHA 019 10:18 AM Large Joint Arthrocentesis: knee, L knee Consent given by: patient Site marked: site marked Timeout: Immediately prior to procedure a time out was called to verify the correct patient, procedure, equipmen t, child support specialist and site/side marked as required Supporting Documentation Indications: pain Procedure Details Preparation: Patient was prepped and zhane ped in the usual sterile fashion Ultrasound guided: no Location: knee - L knee Left side: Needle size: 18 G Approach: anterolateral Left knee medications administered: 4 mL hyaluronate s odium, stabilized 88 mg/4 mL; 10 mL lidocaine 10 mg/mL (1 %) Patient tolerance: patient tolerated the procedure wel l with no immediate complications XR Knee 4+ Vw Left (12/14/2018 8:40 AM CDT) Specimen Narrative Performed At This result has an attachment that is no t available. X-rays of the left knee taken today reveal diffuse periarticular [facility] osteopenia and moderately severe tricompartmental arth ritic change. Performing Organization Address City[facility] Phone Number [facility] [address] [place] [address] MRI Lower Extremity External Study (08/20/2018 9:10 AM CDT) Specimen Narrative Performed At This exam was not acquired at a [facility] t facility and has not been [facility] interpreted by a [facility] Provider. T he exam was imported into our imaging system for comparisons purposes. 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
[2019-10-06] MEDS ORDERED: ONDANSETRON 4 MG/2 ML VIAL IV PRN (19:32)
[2019-10-06] MEDS ORDERED: ACETAMINOPHEN 500 MG TAB PO PRN (19:32)
[2019-10-06] MEDS ORDERED: NA CHLORIDE 0.9% 250 ML IV ONE (19:38)
[2019-10-06] MEDS ORDERED: METOPROLOL TARTRATE 5 MG/5 ML INJ IV STA ×2 (19:42→19:45)
[2019-10-06 19:57] VITALS: BMI 29.7
[2019-10-06] MEDS ORDERED: DIGOXIN 0.25 MG/ML AMP IV ONE (20:00)
[2019-10-06] MEDS ORDERED: NA CHLORIDE 0.9% 250 ML ONE (20:18)
[2019-10-06 20:43] LABS: ALT/SGPT 10 U/L (12-78); AST/SGOT 11 U/L (15-37); Albumin 2.5 g/dL (3.4-5.0); Alkaline Phosphatase 186 U/L (45-117); BUN Blood Urea Nitrogen 12 mg/dL (7-18); Bicarbonate 16 mmol/L (21-32); Bilirubin Total 0.5 mg/dL (0.2-1.0); Glucose Level 302 mg/dL (74-106); Magnesium 1.8 mg/dL (1.8-2.4); NT PRO-BNP 1040 pg/mL (<125); Phosphorus 2.7 mg/dL (2.5-4.9); Potassium 3.9 mmol/L (3.5-5.1); Protein, Total 8.8 g/dL (6.4-8.2); Sodium Level 137 mmol/L (136-145); Troponin I 0.03 ng/mL (0.0-0.045)
[2019-10-06] MEDS ORDERED: SOTALOL HCL 80 MG TAB PO ONE (20:56)
[2019-10-06 20:58] LABS: Absolute Lymphocytes (CBC) 2.6 K/uL (0.7-4.9); Basophils % 1.3 % (0-1.3); Hematocrit 35.6 % (39.6-49.0); Lymphocytes % 18.7 % (15.3-44.8); MPV 8.5 fL (7.6-11.3); RBC Red Blood Cell Count 4.51 M/uL (4.33-5.43)
[2019-10-06 21:09] LABS: Protime INR 3.07
[2019-10-06] MEDS ORDERED: ENOXAPARIN 100 MG/ML SYR SQ SCH (21:23)
[2019-10-06] MEDS: NA CHLORIDE 0.9% 1,000 ML IV SCH (21:56)
[2019-10-06] MEDS ORDERED: GLUCAGON 1 MG/VIAL IM PRN ×2 (22:19→22:27)
[2019-10-06] MEDS ORDERED: D50W 25 GM/50 ML SYRINGE/VIAL IV PRN ×2 (22:19→22:27)
[2019-10-06] MEDS ORDERED: INSULIN GLARGINE 100 UNITS/ML SQ ONE (22:25)
[2019-10-06] MEDS ORDERED: DIGOXIN 0.25 MG/ML AMP IV SCH (23:00)
[2019-10-07 00:15] VITALS: O2SAT 96
[2019-10-07] MEDS ORDERED: BISACODYL E.C. 5 MG TAB PO ONE (00:33)
--- NOTE | 2019-10-07 03:00 | P.HP ---
Certification for Inpatient Patient admitted to: Observation With expected LOS: <2 Midnights Patient will require the following post-hospital care: None Practitioner: I am a practitioner with admitting privileges, knowledge of patient current condition, hospital course, and medical plan of care. Services: Services provided to patient in accordance with Admission requirements found in Title 42 Section 412.3 of the Code of Federal Regulations Patient History Date of Service: 10/06/19 Reason for admission: ATRIAL FIBRILLATION WITH RAPID VENTRICULAR RESPONSE History of Present Illness: Patient is a 59-year-old gentleman who came to the hospital after being transferred from [facility]. Patient been having some abdominal complaints. He had been able to move his bowels. He came to the ER because he was also having some pain whenever he took a deep breath. His COVID-19 test came back negative. His chest workup was unremarkable; however, EKG revealed atrial fibrillation. Patient was in atrial fibrillation with rapid ventricular response. Patient was accepted by daytime hospitalist. When patient right we started him on some fluids and beta-trinity therapy as well as IV digoxin. Notify Cardiology and patient was given oral sotalol. Will monitor patient's heart rate in get echo as well as cardiology consultation. Allergies Sulfa (Sulfonamide Antibiotics) Allergy (Verified 10/06/19 19:56) Unknown Home Medications: Linagliptin/Metformin HCl [Jentadueto 2.5 mg-1000 mg Tab] 2 tab PO BEDTIME 10/07/19 Metoprolol Succinate [Toprol Xl] 25 mg PO BEDTIME 10/07/19 Rivaroxaban [Xarelto*] 20 mg PO BEDTIME 10/07/19 Rosuvastatin Calcium 5 mg PO BEDTIME 10/07/19 - Past Medical/Surgical History Has patient received pneumonia vaccine in the past: No Diabetic: Yes -: HTN -: DM -: Afib -: rt foot fx x2 -: cervical neck sx - Family History Dad Medical History: Other (see notes) Notes: Alzheimers Mom Medical History: Other (see notes) Notes: circulatory problems - Social History Smoking Status: Never smoker Alcohol use: No CD- Drugs: No Caffeine use: Yes Place of Residence: Home Review of Systems 10-point ROS is otherwise unremarkable Physical Examination - Vital Signs Temperature: 96.9 F Blood Pressure: 130/70 Pulse: 128 Respirations: 16 Pulse Ox (%): 95 - Physical Exam General: Alert, In no apparent distress, Oriented x3 HEENT: Atraumatic, PERRLA, Mucous membr. moist/pink, EOMI, Sclerae nonicteric Neck: Supple, 2+ carotid pulse no bruit, No LAD, Without JVD or thyroid abnormality Respiratory: Clear to auscultation bilaterally, Normal air movement Cardiovascular: Normal S1 S2, Irregular heart rate/rhythm Gastrointestinal: Normal bowel sounds, Soft and benign, Non-distended, No tenderness, No rebound, No guarding Musculoskeletal: No clubbing, No swelling, No tenderness Integumentary: No rashes Neurological: Normal gait, Normal speech, Normal strength at 5/5 x4 extr, Normal tone, Sensation intact, Cranial nerves 3-12 intact, Normal affect Lymphatics: No axilla or inguinal lymphadenopathy - Studies Laboratory Data (last 24 hrs) 10/06/19 20:47: PT 35.4 H, INR 3.07, APTT 51.5 H 10/06/19 20:47: WBC 13.7 H, Hgb 11.4 L, Hct 35.6 L, Plt Count 401 10/06/19 20:03: Sodium 137, Potassium 3.9, BUN 12, Creatinine 0.73, Glucose 302 H, Phosphorus 2.7, Magnesium 1.8, Total Bilirubin 0.5, AST 11 L, ALT 10 L, Alkaline Phosphatase 186 H, Troponin I 0.03 Assessment & Plan - Problems (Diagnosis) (1) Atrial fibrillation with RVR Current Visit: Yes Status: Acute - Plan Plan: 1. Continue anticoagulation and antiarrhythmic 2. Cardiology consultation 3. Echocardiogram 4. Check thyroid studies 5. Patient had a bowel movement and abdominal symptoms are much better. 6. Chest x-ray did not reveal any abnormality at the other hospital 7. Cardiac workup is pending. If his workup is unremarkable then he may be able to go home on Eliquis and sotalol. He will not get his 3rd dose of sotalol still 6:00 p.m. possible discharge after this Discharge Plan: Home Plan to discharge in: 48 Hours - Advance Directives Does patient have a Living Will: No Does patient have a Durable POA for Healthcare: No - Code Status/Comfort Care Code Status Assessed: Yes Code Status: Full Code Critical Care: No Time Spent Managing PTS Care (In Minutes): 45
[2019-10-07] MEDS: SOTALOL HCL 80 MG TAB PO SCH ×2 (05:50→17:10)
--- NOTE | 2019-10-07 09:09 | RAD REPORT ---
EXAM DESCRIPTION: RAD - Chest Single View - 10/07/2019 8:55 am CLINICAL HISTORY: pneumonia Chest pain. COMPARISON: Chest Pa And Lat (2 Views) dated 02/18/2016 FINDINGS: Portable technique limits examination quality. The lungs are grossly clear. The heart is normal in size. No displaced fractures.Hardware plate is pr esent lower cervical spine. IMPRESSION: No acute intrathoracic process suspected.
[2019-10-07 11:28] LABS: Absolute Lymphocytes (CBC) 2.2 K/uL (0.7-4.9); BUN Blood Urea Nitrogen 11 mg/dL (7-18); Basophils % 1.5 % (0-1.3); Bicarbonate 17 mmol/L (21-32); Glucose Level 329 mg/dL (74-106); MPV 9.1 fL (7.6-11.3); Magnesium 1.9 mg/dL (1.8-2.4); Phosphorus 3.1 mg/dL (2.5-4.9); Potassium 4.1 mmol/L (3.5-5.1); RBC Red Blood Cell Count 4.49 M/uL (4.33-5.43); Sodium Level 136 mmol/L (136-145)
--- NOTE | 2019-10-07 12:40 | P.DS ---
Admission Date: 10/07/19 Discharge Date: 10/07/19 Primary Care Provider: Dr. Varner; Cardiology-Dr. Lanier Disposition: ROUTINE DISCHARGE Discharge Condition: GOOD Reason for Admission: ATRIAL FIBRILLATION WITH RAPID VENTRICULAR RESPONSE Consultations: Cardiology-Dr. Magaña Procedures: Chest x-ray Unremarkable Medical problem list Atrial fibrillation with RVR on chronic anti coagulation therapy Diabetes mellitus type 2 tml-omobchv-evynybixc with hyperglycemia Hyperlipidemia Brief History of Present Illness: 59-year-old male was a transfer from [facility] due to atrial fibrillation with RVR. Patient was admitted for further evaluation. Patient received IV metoprolol and anti coagulation therapy. Hospital Course: Patient presented with atrial fibrillation with RVR. Patient was a transfer from [facility]. Patient received medication for rate control. Patient was seen and evaluated by Cardiology. Patient was placed on Betapace. Patient has done well with the medication. Patient now in normal sinus rhythm. At discharge patient will continue with Betapace 80 mg 1 pill twice daily. The patient previously on Xarelto 20 mg daily for chronic anti coagulation therapy. This can be resumed. Prior medication of metoprolol XL 25 mg at bedtime has been discontinued. Patient will continue to follow up with cardiology within 1 week to follow up this hospitalization. Education on Betapace, atrial fibrillation will be provided. Patient with diabetes mellitus type 2 non-insulin dependent with hyperglycemia. Patient currently takes medication. Recommend to check A1c as an outpatient to evaluate his control of his diabetes. At discharge patient will continue with his medication of Jentadueto. Recommend to monitor his blood sugar at least twice daily. Recommend to maintain blood sugar less 140 fasting less than 200 after meals. Further adjustment can be done by his PCP. Patient with hyperlipidemia. At discharge she will continue with Crestor 5 mg daily. Vital Signs/Physical Exam: Temp Pulse Resp BP Pulse Ox 96.9 F 128 H 16 130/70 95 10/07/19 08:01 10/07/19 08:01 10/07/19 08:01 10/07/19 08:01 10/07/19 08:01 General: Alert, In no apparent distress, Oriented x3, Cooperative HEENT: Atraumatic Neck: Supple Respiratory: Clear to auscultation bilaterally, Normal air movement Cardiovascular: Normal pulses, Regular rate/rhythm Gastrointestinal: Normal bowel sounds, Soft and benign, Non-distended, No tenderness, No masses, No rebound, No guarding Musculoskeletal: No erythema, No tenderness, No warmth Integumentary: No tenderness/swelling, No erythema, No warmth, No cyanosis Neurological: Normal speech, Normal strength at 5/5 x4 extr, Normal tone, Normal affect Laboratory Data at Discharge: WBC 12.2 K/uL (4.3-10.9) H 10/07/19 10:59 Hgb 11.2 g/dL (13.6-17.9) L 10/07/19 10:59 Hct 36.0 % (39.6-49.0) L 10/07/19 10:59 Plt Count 436 K/uL (152-406) H 10/07/19 10:59 PT 35.4 SECONDS (9.5-12.5) H 10/06/19 20:47 INR 3.07 10/06/19 20:47 APTT 51.5 SECONDS (24.3-36.9) H 10/06/19 20:47 Sodium 136 mmol/L (136-145) 10/07/19 10:59 Potassium 4.1 mmol/L (3.5-5.1) 10/07/19 10:59 BUN 11 mg/dL (7-18) 10/07/19 10:59 Creatinine 0.52 mg/dL (0.55-1.3) L 10/07/19 10:59 Glucose 329 mg/dL (74-106) H 10/07/19 10:59 Phosphorus 3.1 mg/dL (2.5-4.9) 10/07/19 10:59 Magnesium 1.9 mg/dL (1.8-2.4) 10/07/19 10:59 Total Bilirubin 0.5 mg/dL (0.2-1.0) 10/06/19 20:03 AST 11 U/L (15-37) L 10/06/19 20:03 ALT 10 U/L (12-78) L 10/06/19 20:03 Alkaline Phosphatase 186 U/L (45-117) H 10/06/19 20:03 Troponin I 0.03 ng/mL (0.0-0.045) 10/06/19 20:03 Triglycerides 227 mg/dL (<150) H 10/07/19 03:47 Cholesterol 100 mg/dL (<200) 10/07/19 03:47 HDL Cholesterol 13 mg/dL (40-60) L 10/07/19 03:47 Cholesterol/HDL Ratio 7.69 10/07/19 03:47 Home Medications: Linagliptin/Metformin HCl [Jentadueto 2.5 mg-1000 mg Tab] 2 tab PO BEDTIME 10/07/19 Rivaroxaban [Xarelto*] 20 mg PO BEDTIME 10/07/19 Rosuvastatin Calcium 5 mg PO BEDTIME 10/07/19 Sotalol HCl [Betapace*] 80 mg PO BID 6AM 6PM #60 tab 10/07/19 New Medications: Sotalol HCl [Betapace*] 80 mg PO BID 6AM 6PM #60 tab Patient Discharge Instructions: 1. Recommend follow up with PCP in 1 week to follow up this hospitalization. 2. Patient presented with atrial fibrillation with RVR. Patient was a transfer from [facility]. Patient received medication for rate control. Patient was seen and evaluated by Cardiology. Patient was placed on Betapace. Patient has done well with the medication. Deshawn thomas now in normal sinus rhythm. At discharge patient will continue with Betapace 80 mg 1 pill twice daily. The patient previously on Xarelto 20 mg daily for chronic anti coagulation therapy. This can be resumed. Prior medication of metoprolol XL 25 mg at bedtime has been discontinued. Patient will continue to follow up with cardiology within 1 week to follow up this hospitalization. Education on Betapace, atrial fibrillation will be provided. 3. Patient with diabetes mellitus type 2 non-insulin dependent with hyperglycemia. Patient currently takes medication. Recommend to check A1c as an outpatient to evaluate his control of his diabetes. At discharge patient will continue with his medication of Jentadueto. Recommend to monitor his blood sugar at least twice daily. Recommend to maintain blood sugar less 140 fasting less than 200 after meals. Further adjustment can be done by his PCP. 4. Patient with hyperlipidemia. At discharge she will continue with Crestor 5 mg daily. Diet: AHA Activity: Ad cali Time spent managing pt's care (in minutes): 55
[2019-10-07 12:45] VITALS: BP 144/67
--- NOTE | 2019-10-07 14:32 | ECHO ---
HEIGHT: 5 ft 8 in WEIGHT: 195 lb 12.8 oz DATE OF STUDY: 10/07/[address]: Silvestre Nogueira MD 2-DIMENSIONAL: YES M.MODE: YES DOPPLER: YES COLOR FLOW: YES TDS: NO PORTABLE: NO DEFINITY: NO BUBBLE STUDY: NO DIAGNOSIS: ATRIAL FIBRILLATION CARDIAC HISTORY: CATHERIZATION: NO SURGERY: NO PROSTHETIC VALVE: NO PACEMAKER: NO MEASUREMENTS (cm) DIASTOLIC (NORMALS) SYSTOLIC (NORMALS) IVSd 1.1 (0.6-1.2) LA Diam 3.5 (1.9-4.0) LVEF 54% LVIDd 3.8 (3.5-5.7) LVIDs 2.7 (2.0-3.5) %FS 27% LVPWd 1.2 (0.6-1.2) Ao Diam 2.4 (2.0-3.7) 2 DIMENSIONAL ASSESSMENT: RIGHT ATRIUM: NORMAL LEFT ATRIUM: NORMAL RIGHT VENTRICLE: NORMAL LEFT VENTRICLE: NORMAL TRICUSPID VALVE: NORMAL MITRAL VALVE: MILD MITRAL ANNULAR CALCIFICATION PULMONIC VALVE: NORMAL AORTIC VALVE: NORMAL PERICARDIAL EFFUSION: NONE AORTIC ROOT: NORMAL LEFT VENTRICULAR WALL MOTION: NORMAL. DOPPLER/COLOR FLOW: NORMAL. COMMENTS: NORMAL LEFT VENTRICULAR EJECTION FRACTION 55-60% WITH NORMAL WALL MOTION. GRADE ONE DIASTOLIC DYSFUNCTION. NO OTHER ABNORMALITIES. TECHNOLOGIST: RAISA LERNER
[2019-10-07] MEDS: NA CHLORIDE 0.9% 1,000 ML IV SCH (16:00)
[2019-10-07 17:06] VITALS: TEMP 97.5
[2019-10-07] MEDS ORDERED: ROSUVASTATIN 10 MG TAB PO SCH (21:00)
[2019-10-07] MEDS ORDERED: RIVAROXABAN 20 MG TABLET PO SCH (21:00)
[2019-10-07] MEDS ORDERED: INSULIN GLARGINE 100 UNITS/ML SQ SCH (21:00)
--- NOTE | 2019-10-08 10:57 | EKG ---
Test Date: 2019-10-07 Test Time: 14:53:19 Asbestos Handler: CHANDA MEASUREMENT RESULTS: Intervals: Rate: 81 IL: 158 QRSD: 90 QT: 352 QTc: 408 [place]: P: 51 IL: 158 QRS: -15 T: 73 INTERPRETIVE STATEMENTS: Normal sinus rhythm Nonspecific T wave abnormality Abnormal ECG Compared to ECG 10/07/2019 01:49:54 T-wave abnormality now present Myocardial infarct finding no longer present Electronically Signed On 10-08-19 10:54:09 CDT by Jac Lanier
== END 2019-10-07 19:28 | disposition home or self-care (01) | DRG 310 ==
LOC: PATH 12:53 → 2ND 10-06 16:30 → OBSVTOIN 10-07 07:59
PROVIDERS: ADMIT Internal Medicine Sleep Medicine; ATTEND Hospitalist
DX: I48.91 Unspecified atrial fibrillation (principal); E11.65 Type 2 diabetes mellitus with hyperglycemia; I10 Essential (primary) hypertension; E78.5 Hyperlipidemia, unspecified; Z79.01 Long term (current) use of anticoagulants
CPT/HCPCS: 36415; 71045; 80048; 80053; 80061; 82947; 83605; 83735; 83880; 84100; 84439; 84443; 84484; 85025; 85379; 85610; 85730; 88304; 88305; 93005; 93306; G0378; G0379; J1160; J1650; J1815; J7030

== ENCOUNTER 2021-05-24 10:04 | Emergency (ER) | payer BC ==
--- OUTSIDE RECORDS SUMMARY | 2021-05-24 10:06 | XMS REPORT | Continuity of Care Document ---
:1960 Author Organization [facility] t Address [address] [place] [address] [place] [id number] Care Team Providers Name Role Phone Unavailable Unavailable Unavailable Payers Payer Name Policy Type Policy Number Effective Date Expiration Date [facility] [id number] 2017 00:00:00 Problems This patient has no known problems. Allergies, Adverse Reactions, Alerts Allergy Allergy Status Severity Reaction(s) Onset Inactive Treating Comm ents Source Name Type Date Date Clinician [facility] Branch Medications This patient has no known medications. Procedures This patient has no known procedures. Encounters Start End Encounter Admission Attending Care Care Encounter Source Date/Time Date/Time Type Type Clinicians Facility Department ID 2020-07-03 2020-07-[address] [facility] [id number] [facility] 08:50:00 08:50:00 [facility] 2020-06-12 2020-06-[address] [facility] [id number] [facility] 10:25:00 10:25:00 [facility] Results This patient has no known results.
--- NOTE | 2021-05-24 10:57 | RAD REPORT ---
EXAM DESCRIPTION: CT - Stone Protocol - 05/24/2021 10:38 am CLINICAL HISTORY: incontinence COMPARISON: No comparisons TECHNIQUE: Axial 3 mm thick images were obtained without oral or IV contrast. The [id number] span s the entirety of the system including uppermost abdomen and lung bases. All CT scans are performed using dose optimization technique as appropriate and may include automated exposure control or mA/KV adjustment according to patient size. FINDINGS: The posteromedial right lung base abutting the pleura (series 201, image 2- 15) there is a soft tissue mass present measuring 3.8 cm CC x 2.8 cm AP x 1.5 cm TR. Margins are minimally shaggy o r spiculated. No associated calcification or fat component. Small cystic cavity is seen centrally. No pleural effusion or pneumothorax. No hydronephrosis is present and no obstructing ureteral calculi. Each kidney has a single punctate c dimitrios calculus. No suspicious renal masses. Isodense masses and pyelonephritis are not excluded on a s tone protocol CT scan. No significant adrenal finding. No urinary bladder suspicious finding. No pros sanchez gland or seminal vesicle abnormality. Imaged portions of the liver, spleen and pancreas show no suspicious findings on non-contrast imaging . No gallbladder or biliary tree abnormality identified. No suspicious bowel findings. No hernia, mass or bulky lymphadenopathy noted. No free air, free fluid or inflammatory stranding. No significant bony abnormality. IMPRESSION: No acute finding in the abdomen or pelvis. No finding that would explain recurrent incon tinence episodes. In the posteromedial right lung base mass. No comparison imaging available in this region. Malignancy would be a primary consideration. This could be an unusual scarring pattern. No other mass is seen in the lung bases. Follow-up CT chest imaging could be performed as an outpatie nt to evaluate for any additional masses. Patient may require PET-CT imaging to evaluate the metaboli c activity of this mass if no prior outside imaging can establish stability.
[2021-05-24 10:58] LABS: Urine Blood Negative (Negative); Urine Glucose 3+ (Negative); Urine Protein 1+ (Negative)
[2021-05-24 11:21] LABS: Absolute Lymphocytes (CBC) 2.5 K/uL (0.7-4.9); Hematocrit 42.8 % (39.6-49.0); MPV 10.2 fL (7.6-11.3); RBC Red Blood Cell Count 5.27 M/uL (4.33-5.43)
[2021-05-24 11:40] LABS: Urine Bacteria NONE SEEN /HPF (NONE SEEN); Urine RBC <5 /HPF (NONE SEEN)
[2021-05-24 11:44] LABS: Albumin 3.4 g/dL (3.4-5.0); Bilirubin Direct 0.1 mg/dL (0-0.2); Bilirubin Total 0.8 mg/dL (0.2-1.0); Potassium 4.2 mmol/L (3.5-5.1); Protein, Total 7.9 g/dL (6.4-8.2)
[2021-05-24] MEDS ORDERED: INSULIN -REGULAR HUMAN 50 UNIT/0.5 ML ML ONE (12:07)
[2021-05-24] MEDS ORDERED: NA CHLORIDE 0.9% 1,000 ML ONE (12:20)
[2021-05-24] MEDS ORDERED: CEPHALEXIN 250 MG CAP ONE (13:06)
--- NOTE | 2021-05-24 13:37 | ER ---
Nurse's Notes [facility] Name: Jose E Yañez Age: 61 yrs Sex: Male : 1960 Arrival Date: 05/24/2021 Time: 10:05 Bed 17 Private MD: Christophe Varner Diagnosis: Unspecified urinary incontinence;Candidiasis, unspecified;Hyperglycemia, unspecified Presentation: 05/24 10:14 Chief complaint: Patient states: Urinary incontinence x approx 3 months, denies ph burning, abdominal or fever. Coronavirus screen: Vaccine status: Patient reports receiving the 2nd dose of the covid vaccine. Ebola Screen: No symptoms or risks identified at this time. Initial Sepsis Screen: Does the patient meet any 2 criteria? No. Patient's initial sepsis screen is negative. Does the patient have a suspected source of infection? Yes:. Risk Assessment: Do you want to hurt yourself or someone else? Patient reports no desire to harm self or others. Onset of symptoms was May 24, 2021. 10:14 Method Of Arrival: Ambulatory ph 10:14 Acuity: IVANNA 3 ph Historical: - Allergies: 10:17 Sulfa (Sulfonamide Antibiotics); ph - PMHx: 10:17 Atrial Fib; Diabetes - NIDDM; ph - Immunization history:: Client reports receiving the 2nd dose of the Covid vaccine. - Social history:: Smoking status: Patient denies any tobacco usage or history of. Screenin:24 Abuse screen: Denies threats or abuse. Nutritional screening: No deficits noted. ll1 Tuberculosis screening: No symptoms or risk factors identified. Fall Risk IV access (20 points). Total Ghotra Fall Scale indicates No Risk (0-24 pts). Assessment: 10:50 General: Appears in no apparent distress. Behavior is calm, cooperative, appropriate ll1 for age. Pain: Denies pain. : Urine is clear, Reports urgency, urinary frequency. Derm: Reports rash/itching to penile area. 11:01 Reassessment: No changes from previously documented assessment. Patient and/or family ll1 updated on plan of care and expected duration. Pain level reassessed. Patient is alert, oriented x 3, equal unlabored respirations, skin warm/dry/pink. 12:00 Reassessment: No changes from previously documented assessment. Patient and/or family ll1 updated on plan of care and expected duration. Pain level reassessed. Patient is alert, oriented x 3, equal unlabored respirations, skin warm/dry/pink. 13:00 Reassessment: No changes from previously documented assessment. Patient and/or family ll1 updated on plan of care and expected duration. Pain level reassessed. Patient is alert, oriented x 3, equal unlabored respirations, skin warm/dry/pink. 13:35 Reassessment: No changes from previously documented assessment. Patient and/or family ll1 updated on plan of care and expected duration. Pain level reassessed. Patient is alert, oriented x 3, equal unlabored respirations, skin warm/dry/pink. Vital Signs: 10:14 BP 140 / 101; Pulse 86; Resp 18; Temp 99.1; Pulse Ox 98% on R/A; Weight 119.75 kg; ph Height 5 ft. 9 in. (175.26 cm); 13:37 BP 160 / 107; Pulse 74; Resp 17; Pulse Ox 98% ; Pain 0/10; ll1 10:14 Body Mass Index 38.99 (119.75 kg, 175.26 cm) ph ED Course: 10:05 Patient arrived in ED. ds1 10:05 Christophe Varner MD is Private Physician. ds1 10:17 Triage completed. ph 10:18 Arm band placed on. ph 10:19 Hawa Mcgowan, SANDI is Primary Nurse. ll1 10:25 Vonnie Monaco FNP-C is PHCP. kb 10:25 Cornelius Gibson MD is Attending Physician. kb 10:38 CT Stone Protocol In Process Unspecified. EDMS 11:00 Inserted saline lock: 22 gauge in left forearm, using aseptic technique. Blood ll1 collected. 11:01 Urine Microscopic Only Sent. ll1 12:00 Patient has correct armband on for positive identification. Bed in low position. Call ll1 light in reach. Side rails up X 1. Cardiac monitoring not applicable on this patient. 13:35 No provider procedures requiring assistance completed. IV discontinued, intact, ll1 bleeding controlled, No redness/swelling at site. Pressure dressing applied. 13:37 Alfonso Patricio MD is Referral Physician. kb Administered Medications: 12:16 Drug: Insulin Regular Human 10 units {Co-Signature: ll1 (Lynsay Juan M RN).} Route: IVP; iw Site: left forearm; 14:26 Follow up: Response: No adverse reaction ll1 12:21 Drug: NS 0.9% 1000 ml Route: IV; Rate: 1 bolus; Site: left forearm; ll1 13:35 Follow up: Response: No adverse reaction; IV Status: Completed infusion; IV Intake: ll1 1000ml 13:08 Drug: KeFLEX (cephalexin) 500 mg Route: PO; ll1 14:26 Follow up: Response: No adverse reaction ll1 Intake: 13:35 IV: 1000ml; Total: 1000ml. ll1 Outcome: 13:37 Discharge ordered by . amy 13:37 Discharged to home ambulatory. ll1 13:37 Condition: stable 13:37 Discharge instructions given to patient, Instructed on discharge instructions, follow up and referral plans. medication usage, Demonstrated understanding of instructions, follow-up care, medications, Prescriptions given X 2. 14:26 Patient left the ED. ll1 Signatures: Dispatcher [employer] EDMS Vonnie Monaco, SUPERVISOR YARD-C SUPERVISOR YARD-Lizzie Eid ds1 Meryl Atkins, RN RN iw Jennyfer Mcintyre RN RN Hawa Boyd RN RN ll1 Hawa Mcgowan RN ll1
--- NOTE | 2021-05-24 13:37 | EDPHYS ---
Physician Documentation [facility] Name: Jose E Yañez Age: 61 yrs Sex: Male : 1960 Arrival Date: 05/24/2021 Time: 10:05 Bed 17 Private MD: Christophe Varner ED Physician Cornelius Gibson HPI: 05/24 11:18 This 61 yrs old Male presents to ER via Ambulatory with complaints of Urinary kb Incontinence. 11:18 The patient presents with urinary symptoms, incontinence of urine. Onset: The kb symptoms/episode began/occurred 3 month(s) ago. Modifying factors: The symptoms are alleviated by nothing, the symptoms are aggravated by nothing. Associated signs and symptoms: The patient has no apparent associated signs or symptoms. Severity of symptoms: At their worst the symptoms were moderate, in the emergency department the symptoms are unchanged. The patient has not experienced similar symptoms in the past. The patient has not recently seen a physician. Pt reports urinary incontinence for 3 months or more. States he brought it up with his PCP last month, but nothing was done. Has full control of bowel. States he came in today because he is tired of being wet all of the time. . Historical: - Allergies: 10:17 Sulfa (Sulfonamide Antibiotics); ph - PMHx: 10:17 Atrial Fib; Diabetes - NIDDM; ph - Immunization history:: Client reports receiving the 2nd dose of the Covid vaccine. - Social history:: Smoking status: Patient denies any tobacco usage or history of. ROS: 11:17 Constitutional: Negative for fever, chills, and weight loss. kb 11:17 : Positive for urinary symptoms, bladder incontinence 11:17 All other systems are negative. Exam: 11:17 Constitutional: This is a well developed, well nourished patient who is awake, alert, kb and in no acute distress. Head/Face: Normocephalic, atraumatic. ENT: Moist Mucous membranes Cardiovascular: Regular rate and rhythm with a normal S1 and S2. No gallops, murmurs, or rubs. No pulse deficits. Respiratory: Respirations even and unlabored. No increased work of breathing. Talking in full sentences Abdomen/GI: Soft, non-tender. No distention Skin: Warm, dry with normal turgor. Normal color. MS/ Extremity: Pulses equal, no cyanosis. Neurovascular intact. Full, normal range of motion. Neuro: Awake and alert, GCS 15, oriented to person, place, time, and situation. Moves all extremities. Normal gait. Psych: Awake, alert, with orientation to person, place and time. Behavior, mood, and affect are within normal limits. 12:23 : Male external genitalia: erythema, of the head of penis, shaft of penis and scrotum kb is seen, that is moderate, candidiasis rash noted. Vital Signs: 10:14 BP 140 / 101; Pulse 86; Resp 18; Temp 99.1; Pulse Ox 98% on R/A; Weight 119.75 kg; ph Height 5 ft. 9 in. (175.26 cm); 13:37 BP 160 / 107; Pulse 74; Resp 17; Pulse Ox 98% ; Pain 0/10; ll1 10:14 Body Mass Index 38.99 (119.75 kg, 175.26 cm) ph MDM: 10:26 Patient medically screened. mariah 11:17 Data reviewed: vital signs, nurses notes. Data interpreted: Pulse oximetry: on room air kb is 98 %. Interpretation: normal. 12:23 Counseling: I had a detailed discussion with the patient and/or guardian regarding: the kb historical points, exam findings, and any diagnostic results supporting the discharge/admit diagnosis, lab results, radiology results, the need for outpatient follow up, a urologist, to return to the emergency department if symptoms worsen or persist or if there are any questions or concerns that arise at home. 12:45 ED course: Discussed incidental finding of lung mass and given results. Pt will follow kb up with PCP. 05/24 10:25 Order name: Urine Microscopic Only; Complete Time: 11:42 kb 05/24 10:25 Order name: Basic Metabolic Panel; Complete Time: 11:49 kb 05/24 10:25 Order name: CBC with Diff; Complete Time: 11:29 kb 05/24 10:25 Order name: Hepatic Function; Complete Time: 11:49 kb 05/24 10:25 Order name: Lipase; Complete Time: 11:49 kb 05/24 10:58 Order name: Urine Dipstick-Ancillary; Complete Time: 11:00 EDMS 05/24 10:25 Order name: Urine Dipstick-Ancillary (obtain specimen); Complete Time: 11:01 kb 05/24 10:25 Order name: IV Saline Lock; Complete Time: 10:30 kb 05/24 10:25 Order name: Labs collected and sent; Complete Time: 10:30 kb 05/24 10:29 Order name: CT Stone Protocol; Complete Time: 11:00 kb 05/24 13:35 Order name: Glucose, Ancillary Testing; Complete Time: 13:37 EDMT 05/24 13:19 Order name: Blood Glucose Level; Complete Time: 14:26 kb Administered Medications: 12:16 Drug: Insulin Regular Human 10 units {Co-Signature: ll1 (Hawa Mcgowan RN).} Route: IVP; iw Site: left forearm; 14:26 Follow up: Response: No adverse reaction ll1 12:21 Drug: NS 0.9% 1000 ml Route: IV; Rate: 1 bolus; Site: left forearm; ll1 13:35 Follow up: Response: No adverse reaction; IV Status: Completed infusion; IV Intake: ll1 1000ml 13:08 Drug: KeFLEX (cephalexin) 500 mg Route: PO; ll1 14:26 Follow up: Response: No adverse reaction ll1 Disposition Summary: 05/24/21 13:37 Discharge Ordered Location: Home kb Condition: Stable kb Diagnosis - Unspecified urinary incontinence kb - Candidiasis, unspecified kb - Hyperglycemia, unspecified kb Followup: kb - With: Emergency Department - When: As needed - Reason: Worsening of condition Followup: kb - With: Private Physician - When: 2 - 3 days - Reason: Recheck today's complaints, Continuance of care, Re-evaluation by your physician Followup: kb - With: - When: 1 - 2 days - Reason: Recheck today's complaints Discharge Instructions: - Discharge Summary Sheet kb - Urinary Incontinence kb - Hyperglycemia, [id number] kb - Genital Yeast Infection, Male kb Forms: - Medication Reconciliation Form kb - Thank You Letter kb - Antibiotic Education kb - Prescription Opioid Use kb Prescriptions: - nystatin 100,000 unit/gram Topical ointment - apply 1 application by TOPICAL route 2 times per day; 1 tube; Refills: 0, kb Product Selection Permitted - Cephalexin 500 mg Oral Capsule - take 1 capsule by ORAL route every 8 hours for 10 days; 30 capsule; Refills: 0, kb Product Selection Permitted Signatures: Dispatcher [employer] EDVonnie Ruffin FNP-C FNP-Ckb Cornelius Gibson MD MD cha Williams, Irene, RN Jennyfer Bill RN RN Hawa Boyd RN RN ll1 Hawa Mcgowan RN ll1
[2021-05-24 14:32] VITALS: TEMP 99.1; O2SAT 98
[2021-05-24 14:34] VITALS: BP 160/107
== END 2021-05-24 14:26 | disposition home or self-care (01) ==
LOC: ER 10:04
DX: R32 Unspecified urinary incontinence (principal); B37.9 Candidiasis, unspecified; E11.65 Type 2 diabetes mellitus with hyperglycemia; Z88.2 Allergy status to sulfonamides
CPT/HCPCS: 96361; 85025; 80048; 36415; 82947; 80076; 83690; 76377; 74176; 96374; 99284; J7030; 81003; 81015

== ENCOUNTER 2021-12-14 15:31 | Inpatient (IN) | payer BC ==
--- OUTSIDE RECORDS SUMMARY | 2021-12-14 15:36 | XMS REPORT | Continuity of Care Document ---
:1960 Author Organization [facility] t Address [address] [place] [address] Care Team Providers Name Role Phone Varner Christophe Guthrie Primary Care Physician Debbie Carlton MD Attending Clinician DEBBIE CARLTON Attending Clinician Unavailable Tabitha Avalos Attending Clinician Analia Hawk Attending Clinician ANALIA FRASER Attending Clinician Unavailable Payers Payer Name Policy Type Policy Number Effective Date Expiration Date S ource Problems Condition Condition Condition Status Onset Resolution Last Treating Co mments Source Name Details Category Date Date Treatment Clinician Date Primary Primary Disease Active [facility]i osteoarthr osteoarthr 9-13 [facility] itis of itis of 00:00: Hospita left knee left knee 00 l NOEMY NOEMY Disease Active Methodi (obstructi (obstructi 3-11 st ve sleep ve sleep 00:00: Hospit a apnea) apnea) 00 l Gastroesop Gastroesop Disease Active M ethodi hageal hageal 3-11 st reflux reflux 00:00: Hospita disease disease 00 l without without esophagiti esophagiti s s Moderate Moderate Disease Active 2015-04 [facility] di persistent persistent 1- st asthma asthma 00:00: Hospita without without 00 l complicati complicati on on Seasonal Seasonal Disease Active 2015-04 [facility] di allergic allergic 04-30 st rhinitis rhinitis 00:00: Hospit a due to due to 00 l pollen pollen Morbid Morbid Disease Active 2015-04 [facility] obesity obesity 04-30 due to due to 00:00: Hospita excess excess 00 l calories calories Type 2 Type 2 Disease Active 2015-04 [facility] diabetes diabetes 04-30 mellitus mellitus 00:00: Hospit a with with 00 l complicati complicati on on No known No known Disease Unive rs active active ity of problems problems [facility] Allergies, Adverse Reactions, Alerts Allergy Allergy Status Severity Reaction(s) Onset Inactive Treating Comm ents Source Name Type Date Date Clinician Sulfa Propensi Active 2015-04 Methodi (Sulfona ty to 04-23 mide adverse 00:00: Hospita Antibiot reaction 00 l ics) s to drug SULFA Drug Active Hives Univers (SULFONA Class ity of [facility] ANTIBIOT Medical ICS) Branch Sulfa Propensi Active Hives Univers (Sulfona ty to [facility] of [facility] adverse [place] Antibiot reaction Medica l ics) s Branch Sulfa Propensi Active Hives Univers (Sulfona ty to [facility] adverse [place] Antibiot reaction Medica l ics) s Branch Family History Family Member Diagnosis Comments Start Date Stop Date Source Natural father Cancer [facility] Natural mother Allergies [facility] Natural mother Hypertension [facility] Social History Social Habit Start Date Stop Date Quantity Comments Source Exposure to Not sure [facility] SARS-CoV-2 [facility] (event) [place] Alcohol intake 2019-01-04 2019-01-04 Current [facility] 00:00:00 00:00:00 non-drinker of alcohol (finding) Tobacco use and 2018-03-15 2018-03-15 Smokeless tobacco Un iversity of exposure 00:00:00 00:00:00 non-user [facility] Sex Ass[birth year] [facility] 00:00:00 00:00:00 Smoking Status Start Date Stop Date Source Never smoked tobacco [facility] Medications Ordered Filled Start Stop Current Ordering Indication Dosage Frequency Signature Comments Components Source Medication Medication Date Date Medication? Clinician (SIG) Name Name TAMSULOSIN Yes [id number] .4mg TAKE 1 Univers 0.4 mg 24 7-19 CAPSULE BY ity of hr capsule 00:00: MOUTH AT [place] 00 BEDTIME [facility] TAMSULOSIN 2022-0 Yes [id number] .4mg TAKE 1 Univers 0.4 mg 24 6-14 CAPSULE BY ity of hr capsule 00:00: MOUTH AT [place] 00 BEDTIME Medical Branch TAMSULOSIN 0 2021- No [id number] .4mg TAKE 1 Univers 0.4 mg 24 6-14 07-19 CAPSULE BY ity of hr capsule 00:00: [place] :00 BEDTIME Medical Branch tamsulosin 0 Yes [id number] .4mg Take 1 Univers 0.4 mg 24 5-10 capsule by ity of hr capsule 00:00: mouth at [place] 00 bedtime. Medical Branch tamsulosin 0 Yes [id number] .4mg Take 1 Univers 0.4 mg 24 5-10 capsule by ity of hr capsule 00:00: mouth at [place] 00 bedtime. Medical Branch tamsulosin 2021- No [id number] .4mg Take 1 Univers 0.4 mg 24 5-10 06-14 capsule by ity of hr capsule 00:00: [place]:00 [place] :[place] bedtime. Medical Branch tamsulosin 0 Yes [id number] .4mg Take 1 Univers 0.4 mg 24 3-02 capsule by ity of hr capsule 00:00: mouth at [place] 00 bedtime. Medical Branch tamsulosin 0 Yes [id number] .4mg Take 1 Univers 0.4 mg 24 3-02 capsule by ity of hr capsule 00:00: mouth at [place] 00 bedtime. Medical Branch tamsulosin 2021- No [id number] .4mg Take 1 Univers 0.4 mg 24 3-02 05-10 capsule by ity of hr capsule 00:00: 00:00 [place] :00 bedtime. Medical Branch cetirizine Yes cetirizine U nivers 10 mg 3-01 10 mg ity of tablet 08:22: tablet [place] [address] Medical Branch cefdinir Yes cefdinir Unive rs 300 mg 3-01 300 mg ity of capsule 08:22: capsule [place] [address] Medical Branch cetirizine Yes cetirizine U nivers 10 mg 3-01 10 mg ity of tablet 08:22: tablet [address] cefdinir Yes cefdinir Unive rs 300 mg 3-01 300 mg ity of capsule 08:22: capsule [address] cetirizine Yes cetirizine U nivers 10 mg 3-01 10 mg ity of tablet 08:22: tablet [address] cefdinir Yes cefdinir Unive rs 300 mg 3-01 300 mg ity of capsule 08:22: capsule [address] cetirizine Yes cetirizine U nivers 10 mg 3-01 10 mg ity of tablet 08:22: tablet [address] cefdinir Yes cefdinir Unive rs 300 mg 3-01 300 mg ity of capsule 08:22: capsule [address] cetirizine Yes cetirizine U nivers 10 mg 3-01 10 mg ity of tablet 08:22: tablet [address] cefdinir Yes cefdinir Unive rs 300 mg 3-01 300 mg ity of capsule 08:22: capsule [address] cetirizine Yes cetirizine U nivers 10 mg 3-01 10 mg ity of tablet 08:22: tablet [address] cefdinir Yes cefdinir Unive rs 300 mg 3-01 300 mg ity of capsule 08:22: capsule [address] cetirizine Yes cetirizine U nivers 10 mg 3-01 10 mg ity of tablet 08:22: tablet [address] cefdinir Yes cefdinir Unive rs 300 mg 3-01 300 mg ity of capsule 08:22: capsule [address] cetirizine Yes cetirizine U nivers 10 mg 3-01 10 mg ity of tablet 08:22: tablet [address] cefdinir Yes cefdinir Unive rs 300 mg 3-01 300 mg ity of capsule 08:22: capsule [address] omeprazole Yes omeprazole U nivers 20 mg 3-01 20 mg ity of capsule 08:22: capsule,[place] 38 layed Medical release Branch montelukast Yes montelukas Univers 10 mg 3-01 t 10 mg ity of tablet 08:22: tablet [address] Mometasone- Yes Dulera 200 Univers Formoterol 3-01 mcg-5 ity of 200-5 08:22: mcg/actuat [place] mcg/actuati 38 ion HFA Medic al on inhaler aerosol Branch inhaler insulin Yes Novolog Univers aspart 3- Flexpen ity of U-100 08:22: U-100 [place] (NOVOLOG Insulin Medical FLEXPEN aspart 100 Branch U-100 unit/mL (3 INSULIN) mL) 100 unit/mL subcutaneo (3 mL) us injection enalapril Yes enalapril Uni vers 20 mg - maleate 20 ity of tablet 08:22: mg tablet [address] empaglifloz Yes Jardiance U nivers in 06-01 25 mg ity of ([place]) 08:22: [place] [address] zolpidem 5 Yes zolpidem 5 U nivers mg tablet 3-01 mg tablet ity o f 08:22: [address] SITagliptin Yes Janumet XR Univers -metformin - 50 ity of (JANUMET 08:22: mg-1,000 [place] XR) 38 mg Medical 50-1,000 mg tablet,ext Br anch per tablet ended release pregabalin Yes Lyrica 75 Un marisol (LYRICA) 75 3-01 mg capsule it y of mg capsule 08:22: [address] omeprazole Yes omeprazole U nivers 20 mg 3-01 20 mg ity of capsule 08:22: [place] 38 layed Medical release Branch montelukast Yes montelukas Univers 10 mg 3-01 t 10 mg ity of tablet 08:22: tablet [address] Mometasone- Yes Dulera 200 Univers Formoterol 3-01 mcg-5 ity of 200-5 08:22: mcg/actuat [place] mcg/actuati 38 ion HFA Medic al on inhaler aerosol Branch inhaler insulin Yes Novolog Univers aspart - Flexpen ity of U-100 08:22: U-100 [place] (NOVOLOG 38 Insulin Medical FLEXPEN aspart 100 Branch U-100 unit/mL (3 INSULIN) mL) 100 unit/mL subcutaneo (3 mL) us injection enalapril Yes enalapril Uni vers 20 mg - maleate 20 ity of tablet 08:22: mg tablet [address] empaglifloz Yes Jardiance U nivers in 06-01 25 mg ity of ([place]ANCE) 08:22: [place] 25 mg Tab Medical Branch zolpidem 5 Yes zolpidem 5 U nivers mg tablet - mg tablet ity o f 08:22: [address] SITagliptin Yes Janumet XR Univers -metformin 06-01 50 ity of (JANUMET 08:22: mg-1,000 [place] XR) 38 mg Medical 50-1,000 mg tablet,ext Br anch per tablet ended release pregabalin Yes Lyrica 75 Un marisol (LYRICA) 75 - mg capsule it y of mg capsule 08:22: [address] omeprazole Yes omeprazole U nivers 20 mg 06-01 20 mg ity of capsule 08:22: [place] layed Medical release Branch montelukast Yes montelukas Univers 10 mg - t 10 mg ity of tablet 08:22: tablet [address] Mometasone- Yes Dulera 200 Univers Formoterol 3- mcg-5 ity of 200-5 08:22: mcg/actuat [place] mcg/actuati 38 ion HFA Medic al on inhaler aerosol Branch inhaler insulin Yes Novolog Univers aspart 3-01 Flexpen ity of U-100 08:22: U-100 [place] (NOVOLOG 38 Insulin Medical FLEXPEN aspart 100 Branch U-100 unit/mL (3 INSULIN) mL) 100 unit/mL subcutaneo (3 mL) us injection enalapril Yes enalapril Uni vers 20 mg - maleate 20 ity of tablet 08:22: mg tablet [address] empaglifloz Yes Jardiance U nivers in 06-01 25 mg ity of ([place]IANCE) 08:22: [place] [address] zolpidem 5 Yes zolpidem 5 U nivers mg tablet 3- mg tablet ity o f 08:22: [address] SITagliptin Yes Janumet XR Univers -metformin 06-01 50 ity of (JANUMET 08:22: mg-1,000 [place] XR) 38 mg Medical 50-1,000 mg tablet,ext Br anch per tablet ended release pregabalin Yes Lyrica 75 Un marisol (LYRICA) 75 06-01 mg capsule it y of mg capsule 08:22: [address] omeprazole Yes omeprazole U nivers 20 mg 06-01 20 mg ity of capsule 08:22: capsule,[place] 38 layed Medical release Branch montelukast Yes montelukas Univers 10 mg 06-01 t 10 mg ity of tablet 08:22: tablet [address] Mometasone- Yes Dulera 200 Univers Formoterol - mcg-5 ity of 200-5 08:22: mcg/actuat [place] mcg/actuati ion HFA Medic al on inhaler aerosol Branch inhaler insulin Yes Novolog Univers aspart 06-01 Flexpen ity of U-100 08:22: U-100 [place] (NOVOLOG Insulin Medical FLEXPEN aspart 100 Branch U-100 unit/mL (3 INSULIN) mL) 100 unit/mL subcutaneo (3 mL) us injection enalapril Yes enalapril Uni vers 20 mg 06-01 maleate 20 ity of tablet 08:22: mg tablet [address] empaglifloz Yes Jardiance U nivers in 06-01 25 mg ity of (JARDIANCE) 08:22: [place] [address] zolpidem 5 Yes zolpidem 5 U nivers mg tablet 3-01 mg tablet ity o f 08:22: [address] SITagliptin 2022-0 Yes Janumet XR Univers -metformin 3- 50 ity of (JANUMET 08:22: mg-1,000 [place] XR) 38 mg Medical 50-1,000 mg tablet,ext Br anch per tablet ended release pregabalin Yes Lyrica 75 Un marisol (LYRICA) 75 3-01 mg capsule it y of mg capsule 08:22: [address] omeprazole Yes omeprazole U nivers 20 mg 3- 20 mg ity of capsule 08:22: capsule,de [place] 38 layed Medical release Branch montelukast Yes montelukas Univers 10 mg 3- t 10 mg ity of tablet 08:22: tablet [address] Mometasone- Yes Dulera 200 Univers Formoterol - mcg-5 ity of 200-5 08:22: mcg/actuat [place] mcg/actuati ion HFA Medic al on inhaler aerosol [place] inhaler insulin Yes Novolog Univers aspart -01 Flexpen ity of U-100 08:22: U-100 [place] (NOVOLOG Insulin Medical FLEXPEN aspart 100 Branch U-100 unit/mL (3 INSULIN) mL) 100 unit/mL subcutaneo (3 mL) us injection enalapril Yes enalapril Uni vers 20 mg - maleate 20 ity of tablet 08:22: mg tablet [address] empaglifloz Yes Jardiance U nivers in - 25 mg ity of (JARDIANCE) 08:22: [place] [address] zolpidem 5 Yes zolpidem 5 U nivers mg tablet 3-01 mg tablet ity o f 08:22: [address] SITagliptin Yes Janumet XR Univers -metformin 3- 50 ity of (JANUMET 08:22: mg-1,000 [place] XR) 38 mg Medical 50-1,000 mg tablet,ext Br anch per tablet ended release pregabalin Yes Lyrica 75 Un marisol (LYRICA) 75 3-01 mg capsule it y of mg capsule 08:22: [address] omeprazole 2022-0 Yes omeprazole U nivers 20 mg 3-01 20 mg ity of capsule 08:22: capsule,[place] lay Medical release Branch montelukast Yes montelukas Univers 10 mg 3-01 t 10 mg ity of tablet 08:22: tablet [address] Mometasone- Yes Dulera 200 Univers Formoterol 3-01 mcg-5 ity of 200-5 08:22: mcg/actuat [place] mcg/actuati ion HFA Medic al on inhaler aerosol [place] inhaler insulin Yes Novolog Univers aspart - Flexpen ity of U-100 08:22: U-100 [place] (NOVOLOG Insulin Medical FLEXPEN aspart 100 Branch U-100 unit/mL (3 INSULIN) mL) 100 unit/mL subcutaneo (3 mL) us injection enalapril Yes enalapril Uni vers 20 mg - maleate 20 ity of tablet 08:22: mg tablet [address] empaglifloz Yes Jardiance U nivers in 06-01 25 mg ity of (JARDIANCE) 08:22: [place] [address] zolpidem 5 Yes zolpidem 5 U nivers mg tablet 3-01 mg tablet ity o f 08:22: [address] SITagliptin Yes Janumet XR Univers -metformin - 50 ity of (JANUMET 08:22: mg-1,000 [place] XR) 38 mg Medical 50-1,000 mg tablet,ext Br anch per tablet ended release pregabalin Yes Lyrica 75 Un marisol (LYRICA) 75 3-01 mg capsule it y of mg capsule 08:22: [address] omeprazole Yes omeprazole U nivers 20 mg 3-01 20 mg ity of capsule 08:22: capsule,de [place] 38 [facility] Medical release [place] montelukast Yes montelukas Univers 10 mg 3-01 t 10 mg ity of tablet 08:22: tablet [address] Mometasone- Yes Dulera 200 Univers Formoterol 3-01 mcg-5 ity of 200-5 08:22: mcg/actuat [place] mcg/actuati 38 ion HFA Medic al on inhaler aerosol Branch inhaler insulin Yes Novolog Univers aspart - Flexpen ity of U-100 08:22: U-100 [place] (NOVOLOG 38 Insulin Medical FLEXPEN aspart 100 Branch U-100 unit/mL (3 INSULIN) mL) 100 unit/mL subcutaneo (3 mL) us injection enalapril Yes enalapril Uni vers 20 mg 06-01 maleate 20 ity of tablet 08:22: mg tablet [address] empaglifloz Yes Jardiance U nivers in 06-01 25 mg ity of (JARDIANCE) 08:22: tablet [place] [address] zolpidem 5 Yes zolpidem 5 U nivers mg tablet 06-01 mg tablet ity o f 08:22: [address] SITagliptin Yes Janumet XR Univers -metformin 06-01 50 ity of (JANUMET 08:22: mg-1,000 [place] XR) 38 mg Medical 50-1,000 mg tablet,ext Br anch per tablet ended release pregabalin Yes Lyrica 75 Un marisol (LYRICA) 75 3- mg capsule it y of mg capsule 08:22: [address] omeprazole Yes omeprazole U nivers 20 mg 06-01 20 mg ity of capsule 08:22: capsule,de [place] 38 layed Medical release Branch montelukast Yes montelukas Univers 10 mg - t 10 mg ity of tablet 08:22: tablet [address] Mometasone- Yes Dulera 200 Univers Formoterol 3-01 mcg-5 ity of 200-5 08:22: mcg/actuat [place] mcg/actuati 38 ion HFA Medic al on inhaler aerosol Branch inhaler insulin Yes Novolog Univers aspart 3- Flexpen ity of U-100 08:22: U-100 [place] (NOVOLOG 38 Insulin Medical FLEXPEN aspart 100 Branch U-100 unit/mL (3 INSULIN) mL) 100 unit/mL subcutaneo (3 mL) us injection enalapril Yes enalapril Uni vers 20 mg 3-01 maleate 20 ity of tablet 08:22: mg tablet [place] [address] Medical Branch empaglifloz Yes Jardiance U nivers in 3- 25 mg ity of (JARDIANCE) 08:22: tablet [place] 25 mg [facility] Medical Branch zolpidem 5 Yes zolpidem 5 U nivers mg tablet 3-01 mg tablet ity o f 08:22: [place] [address] Medical Branch SITagliptin Yes Janumet XR Univers -metformin 3- 50 ity of (JANUMET 08:22: mg-1,000 [place] XR) 38 mg Medical 50-1,000 mg tablet,ext Br anch per tablet ended release pregabalin Yes Lyrica 75 Un marisol (LYRICA) 75 3-01 mg capsule it y of mg capsule 08:22: [place] [address] Medical Branch cephALEXin Yes TAKE ONE Uni vers 500 mg 2-21 CAPSULE BY ity of capsule 00:00: MOUTH [place] 00 EVERY 8 Medical HOURS FOR Branch 10 DAYS cephALEXin 0 Yes TAKE ONE Uni vers 500 mg 2-21 CAPSULE BY ity of capsule 00:00: MOUTH [place] 00 EVERY 8 Medical HOURS FOR Branch 10 DAYS cephALEXin 0 Yes TAKE ONE Uni vers 500 mg 2-21 CAPSULE BY ity of capsule 00:00: MOUTH [place] 00 EVERY 8 Medical HOURS FOR Branch 10 DAYS cephALEXin 0 Yes TAKE ONE Uni vers 500 mg 2-21 CAPSULE BY ity of capsule 00:00: MOUTH [place] 00 EVERY 8 Medical HOURS FOR Branch 10 DAYS cephALEXin 0 Yes TAKE ONE Uni vers 500 mg 2-21 CAPSULE BY ity of capsule 00:00: MOUTH [place] 00 EVERY 8 Medical HOURS FOR Branch 10 DAYS cephALEXin 0 Yes TAKE ONE Uni vers 500 mg 2-21 CAPSULE BY ity of capsule 00:00: MOUTH [place] 00 EVERY 8 Medical HOURS FOR Branch 10 DAYS cephALEXin 0 Yes TAKE ONE Uni vers 500 mg 2-21 CAPSULE BY ity of capsule 00:00: MOUTH [place] 00 EVERY 8 Medical HOURS FOR Branch 10 DAYS cephALEXin 0 Yes TAKE ONE Uni vers 500 mg 2-21 CAPSULE BY ity of capsule 00:00: MOUTH [place] 00 EVERY 8 Medical HOURS FOR Branch 10 DAYS JENTADUETO Yes 1{tbl} Take 1 Uni vers XR 2-04 tablet by ity of 2.5-1,000 00:00: mouth 2 [place] mg TBph 00 (two) Medical times Branch daily. insulin Yes 25 units Univer s glargine 2-04 bid subcut ity o f (LANTUS 00:00: [place] U-100 00 Medical INSULIN) Branch 100 unit/mL injection JENTADUETO Yes 1{tbl} Take 1 Uni vers XR 2-04 tablet by ity of 2.5-1,000 00:00: mouth 2 [place] mg TBph 00 (two) Medical times Branch daily. insulin Yes 25 units Univer s glargine 2-04 bid subcut ity o f (LANTUS 00:00: [place] U-100 00 Medical INSULIN) Branch 100 unit/mL injection JENTADUETO Yes 1{tbl} Take 1 Uni vers XR 2-04 tablet by ity of 2.5-1,000 00:00: mouth 2 [place] mg TBph 00 (two) Medical times Branch daily. insulin Yes 25 units Univer s glargine 2-04 bid subcut ity o f (LANTUS 00:00: [place] U-100 00 Medical INSULIN) Branch 100 unit/mL injection JENTADUETO Yes 1{tbl} Take 1 Uni vers XR 2-04 tablet by ity of 2.5-1,000 00:00: mouth 2 [place] mg TBph 00 (two) Medical times Branch daily. insulin Yes 25 units Univer s glargine 2-04 bid subcut ity o f (LANTUS 00:00: [place] U-100 00 Medical INSULIN) Branch 100 unit/mL injection JENTADUETO Yes 1{tbl} Take 1 Uni vers XR 2-04 tablet by ity of 2.5-1,000 00:00: mouth 2 [place] mg TBph 00 (two) Medical times Branch daily. insulin Yes 25 units Univer s glargine 2-04 bid subcut ity o f (LANTUS 00:00: [place] U-100 00 Medical INSULIN) Branch 100 unit/mL injection JENTADUETO Yes 1{tbl} Take 1 Uni vers XR 2-04 tablet by ity of 2.5-1,000 00:00: mouth 2 [place] mg TBph 00 (two) Medical times Branch daily. insulin Yes 25 units Univer s glargine 2-04 bid subcut ity o f (LANTUS 00:00: [place] U-100 00 Medical INSULIN) Branch 100 unit/mL injection JENTADUETO Yes 1{tbl} Take 1 Uni vers XR 2-04 tablet by ity of 2.5-1,000 00:00: mouth 2 [place] mg TBph 00 (two) Medical times Branch daily. insulin Yes 25 units Univer s glargine 2-04 bid subcut ity o f (LANTUS 00:00: [place] U-100 00 Medical INSULIN) Branch 100 unit/mL injection JENTADUETO Yes 1{tbl} Take 1 Uni vers XR 2-04 tablet by ity of 2.5-1,000 00:00: mouth 2 [place] mg TBph 00 (two) Medical times Branch daily. insulin Yes 25 units Univer s glargine 2-04 bid subcut ity o f (LANTUS 00:00: [place] U-100 00 Medical INSULIN) Branch 100 unit/mL injection metoprolol 2020-04 Yes 100mg Take 100 Un marisol tartrate 2-13 mg by ity of 100 mg 00:00: mouth. [place] tablet Medical Branch metoprolol 2020-04 Yes 100mg Take 100 Un marisol tartrate 2-13 mg by ity of 100 mg 00:00: mouth. [place] tablet Medical Branch metoprolol 2020-04 Yes 100mg Take 100 Un marisol tartrate 2-13 mg by ity of 100 mg 00:00: mouth. [place] tablet Medical Branch metoprolol 2020-04 Yes 100mg Take 100 Un marisol tartrate 2-13 mg by ity of 100 mg 00:00: mouth. [place] tablet Medical Branch metoprolol 2020-04 Yes 100mg Take 100 Un marisol tartrate 2-13 mg by ity of 100 mg 00:00: mouth. [place] tablet Medical Branch metoprolol 2020-04 Yes 100mg Take 100 Un marisol tartrate 2-13 mg by ity of 100 mg 00:00: mouth. [place] tablet [facility] metoprolol 2020-04 Yes 100mg Take 100 Un marisol tartrate 2-13 mg by ity of 100 mg 00:00: mouth. [place] tablet [facility] metoprolol 2020-04 Yes 100mg Take 100 Un marisol tartrate 2-13 mg by ity of 100 mg 00:00: mouth. [place] tablet [facility] leflunomide 2020-04 Yes 20mg Take 20 mg Univers 20 mg 2-09 by mouth ity of tablet 00:00: daily. [place] [facility] leflunomide 2020-04 Yes 20mg Take 20 mg Univers 20 mg 2-09 by mouth ity of tablet 00:00: daily. [place] [facility] leflunomide 2020-04 Yes 20mg Take 20 mg Univers 20 mg 2-09 by mouth ity of tablet 00:00: daily. [place] [facility] leflunomide 2020-04 Yes 20mg Take 20 mg Univers 20 mg 2-09 by mouth ity of tablet 00:00: daily. [place] [facility] leflunomide 2020-04 Yes 20mg Take 20 mg Univers 20 mg 2-09 by mouth ity of tablet 00:00: daily. [place] [facility] leflunomide 2020-04 Yes 20mg Take 20 mg Univers 20 mg 2-09 by mouth ity of tablet 00:00: daily. [place] [facility] leflunomide 2020-04 Yes 20mg Take 20 mg Univers 20 mg 2-09 by mouth ity of tablet 00:00: daily. [place] [facility] leflunomide 2020-04 Yes 20mg Take 20 mg Univers 20 mg 2-09 by mouth ity of tablet 00:00: daily. [place] [facility] spironolact 0 Yes 25mg Take 25 mg Univers one 25 mg 8-03 by mouth. ity o f tablet 00:00: [place] [facility] spironolact 0 Yes 25mg Take 25 mg Univers one 25 mg 8-03 by mouth. ity o f tablet 00:00: [place] [facility] spironolact 0 Yes 25mg Take 25 mg Univers one 25 mg 8-03 by mouth. ity o f tablet 00:00: [place] [facility] spironolact 2021-0 Yes 25mg Take 25 mg Univers one 25 mg 8-03 by mouth. ity o f tablet 00:00: [place] [facility] spironolact 2021-0 Yes 25mg Take 25 mg Univers one 25 mg 8-03 by mouth. ity o f tablet 00:00: [place] [facility] spironolact 2021-0 Yes 25mg Take 25 mg Univers one 25 mg 8-03 by mouth. ity o f tablet 00:00: [place] [facility] spironolact 2021-0 Yes 25mg Take 25 mg Univers one 25 mg 8-03 by mouth. ity o f tablet 00:00: [place] [facility] spironolact 2021-0 Yes 25mg Take 25 mg Univers one 25 mg 8-03 by mouth. ity o f tablet 00:00: [place] [facility] rosuvastati 2021-0 Yes 5mg Take 5 mg U nivers n 5 mg 4-21 by mouth. ity of tablet 00:00: [place] [facility] rosuvastati 2021-0 Yes 5mg Take 5 mg U nivers n 5 mg 4-21 by mouth. ity of tablet 00:00: [place] [facility] rosuvastati 2021-0 Yes 5mg Take 5 mg U nivers n 5 mg 4-21 by mouth. ity of tablet 00:00: [place] [facility] rosuvastati 2021-0 Yes 5mg Take 5 mg U nivers n 5 mg 4-21 by mouth. ity of tablet 00:00: [place] [facility] rosuvastati 2021-0 Yes 5mg Take 5 mg U nivers n 5 mg 4-21 by mouth. ity of tablet 00:00: [place] [facility] rosuvastati 2021-0 Yes 5mg Take 5 mg U nivers n 5 mg 4-21 by mouth. ity of tablet 00:00: [place] [facility] rosuvastati 2021-0 Yes 5mg Take 5 mg U nivers n 5 mg 4-21 by mouth. ity of tablet 00:00: [place] [facility] rosuvastati 2021-0 Yes 5mg Take 5 mg U nivers n 5 mg 4-21 by mouth. ity of tablet 00:00: [address] sitagliptin 2018-04 Yes 2{tbl} QD Take 2 [facility] -metformin 0-[address] (JANUMET) 10:01: mouth [facility] 50-[facility],000 mg 42 daily. l per tablet omeprazole Yes TAKE 1 Metho di (PriLOSEC) 5-22 CAPSULE(20 st 20 MG 00:00: MG) BY [facility] capsule 00 MOUTH l DAILY mometasone- Yes 1{puff} Q.5D Inhale 1 Methodi formoterol 5-[address] (DULERA 00:00: (two) [facility]osp[facility] 200) 200-5 00 times a l mcg/actuati day. on inhaler montelukast Yes TAKE 1 Meth rita (SINGULAIR) 4-03 TABLET(10 st 10 mg 00:00: MG) BY [facility]ospita tablet 00 MOUTH l EVERY NIGHT albuterol Yes 180ug Q4H Inhale 180 M ethodi sulfate 90 3-[address] mcg/actuati 00:00: 4 (four) Ho spita on aerosol 00 hours. l powdr breath activated DULERA 2015-04 Yes Methodi 200-5 2-24 st mcg/actuati 00:00: Hospit a on inhaler 00 l JARDIANCE 2015-04 Yes [facility] 25 mg 2-12 st tablet 00:00: Hospita 00 l fluticasone 2015-04 Yes 1{spray QD 1 spray Methodi (FLONASE) 1-21 } into each st 50 00:00: nostril Hospita mcg/actuati 00 daily. l on nasal spray azithromyci 2015-04 Yes TK 1 T PO M ethodi n 1-[address] (ZITHROMAX) 00:00: PACKAGE Hos felice 250 MG 00 DIRECTIONS l tablet Immunizations Ordered Filled Immunization Date Status Comments Sour e Immunization Name Name SARS-COV-2 COVID-19 2020-07-03 Completed Unive rsity of PFIZER VACCINE 00:00:00 [facility] SARS-COV-2 COVID-19 2020-07-03 Completed Unive rsity of PFIZER VACCINE 00:00:00 [facility] SARS-COV-2 COVID-19 2020-07-03 Completed Unive rsity of PFIZER VACCINE 00:00:00 [facility] SARS-COV-2 COVID-19 2020-07-03 Completed Unive rsity of PFIZER VACCINE 00:00:00 [facility] SARS-COV-2 COVID-19 2020-07-03 Completed Unive rsity of PFIZER VACCINE 00:00:00 [facility] SARS-COV-2 COVID-19 2020-07-03 Completed Unive rsity of PFIZER VACCINE 00:00:00 [facility] SARS-COV-2 COVID-19 2020-07-03 Completed Unive rsity of PFIZER VACCINE 00:00:00 [facility] SARS-COV-2 COVID-19 2020-07-03 Completed Unive rsity of PFIZER VACCINE 00:00:00 [facility] SARS-COV-2 COVID-19 2020-06-12 Completed Unive rsity of PFIZER VACCINE 00:00:00 [facility] SARS-COV-2 COVID-19 2020-06-12 Completed Unive rsity of PFIZER VACCINE 00:00:00 [facility] SARS-COV-2 COVID-19 2020-06-12 Completed Unive rsity of PFIZER VACCINE 00:00:00 [facility] SARS-COV-2 COVID-19 2020-06-12 Completed Unive rsity of PFIZER VACCINE 00:00:00 [facility] SARS-COV-2 COVID-19 2020-06-12 Completed Unive rsity of PFIZER VACCINE 00:00:00 [facility] SARS-COV-2 COVID-19 2020-06-12 Completed Unive rsity of PFIZER VACCINE 00:00:00 [facility] SARS-COV-2 COVID-19 2020-06-12 Completed Unive rsity of PFIZER VACCINE 00:00:00 [facility] SARS-COV-2 COVID-19 2020-06-12 Completed Unive rsity of PFIZER VACCINE 00:00:00 [facility] INFLUENZA QUAD PF 2016-02-[address] (0.5ML VIAL) 00:00:00 Hospital Vital Signs Vital Name Observation Time Observation Value Comments Source Systolic blood 2021-06-01 14:18:00 122 mm[Hg] Univer sity of pressure [facility] Diastolic blood 2021-06-01 14:18:00 65 mm[Hg] Unive rsity of pressure [facility] Heart rate 2021-06-01 14:18:00 66 /min [facility] Body temperature 2021-06-01 14:18:00 36.[address] [facility] [facility] [address] Respiratory rate 2021-06-01 14:18:00 16 /min [facility] Body height 2021-06-01 14:18:00 175.3 cm [facility] Body weight 2021-06-01 14:18:00 114.76 kg [facility] BMI 2021-06-01 14:18:00 37.36 kg/m2 [facility] Oxygen saturation in 2021-06-01 14:18:00 99 /min [facility] Arterial blood by [facility] Pulse oximetry [place] Procedures Procedure Date / Time Performed Performing Clinician Sourc e POCT URINALYSIS AUTO 2021-06-01 14:24:00 Analia [facility] Plan of Care Planned Activity Planned Date Details Comments Source Future Scheduled 2021-12-02 HEPATITIS B VACCINES Met [facility] Test 10:16:24 (1 of 3 - 3-dose series) [code = HEPATITIS B VACCINES (1 of 3 - 3-dose series)] Future Scheduled 2021-12-02 COVID-19 VACCINE (#1) [facility] Test 10:16:24 [code = COVID-19 VACCINE (#1)] Future Scheduled 2021-12-02 Pneumococcal Vaccine: [facility] Test 10:16:24 Pediatrics (0 to 5 Years) and At-Risk Patients (6 to 64 Years) (1 - PCV) [code = Pneumococcal Vaccine: Pediatrics (0 to 5 Years) and At-Risk Patients (6 to 64 Years) (1 - PCV)] Future Scheduled 2021-12-02 DIABETES: RETINAL EYE [facility] Test 10:16:24 EXAM [code = DIABETES: RETINAL EYE EXAM] Future Scheduled 2021-12-02 DIABETIC FOOT EXAM [facility] Test 10:16:24 [code = DIABETIC FOOT EXAM] Future Scheduled 2021-12-02 URINE MICROALBUMIN [facility] Test 10:16:24 [code = URINE MICROALBUMIN] Future Scheduled 2021-12-02 Hepatitis C screening [facility] Test 10:16:24 (procedure) [code = 598731331] Future Scheduled 2021-12-02 COLONOSCOPY SCREENING [facility] Test 10:16:24 [code = COLONOSCOPY SCREENING] Future Scheduled 2021-12-02 SHINGLES VACCINES (1 Met [facility] Test 10:16:24 of 2) [code = SHINGLES VACCINES (1 of 2)] Future Scheduled 2021-12-02 INFLUENZA VACCINE Method [facility] Test 10:16:24 [code = INFLUENZA VACCINE] Encounters Start End Encounter Admission Attending Care Care Encounter Source Date/Time Date/Time Type Type Clinicians Facility Department ID 2021-10-19 2021-10-19 [facility] [id number] Univers 00:00:00 00:00:00 Debbie [place] [id number] [id number] [id number] [address] 2021-09-14 2021-09-14 [facility] [id number] Univers 00:00:00 00:00:00 Debbie [place] [id number] [id number] [id number] [address] 2021-08-26 2021-08-26 Outpatient R IRAJ [facility] [id number] Q-20 Univers 10:30:00 10:30:00 DEBBIE [id number] ity of [facility] 2021-08-10 2021-08-[address] [facility] [id number] Univers 00:00:00 00:00:00 Management Tabitha RAMIRES [id number] [id number] [id number] [address] 2021-08-10 2021-08-10 [facility] [id number] Univers 00:00:00 00:00:00 Debbie [place] [id number] i [id number] [id number] [address] 2021-08-10 2021-08-[address] [facility] [id number] Univers 00:00:00 00:00:00 Debbie KEYLA [id number] [id number] [id number] [address] 2021-06-02 2021-06-02 [facility] [id number] Univers 00:00:00 00:00:00 Management Analia RAMIRES [id number] [id number] [id number] [address] 2021-06-01 2021-06-01 [facility] [id number] Univers 08:45:00 08:44:04 ANALIA itbrayan [facility] 2021-06-01 2021-06-01 [facility] [id number] Univers 08:00:00 08:37:07 Visit Analia RAMIRES [id number] [facility] [id number] [id number] [address] Results Test Description Test Time Test Comments Results Result Comments Source POCT URINALYSIS, INSTRUMENT 2021-06-01 14:25:00 Test Item Value Reference Range Interpretation Comme nts POCT U SP GRAV (test code = 3255) 1.005 mg/dl 1.005-1.025 POCT PH U (test code = 3254) 5.5 mg/dl 5-8 POCT U LEUK EST (test code = 3263) Negative Negative - Negative POCT U NIT (test code = 3262) Negative Negative - Negative POCT U PROT (test code = 3259) Negative Negative - Negative POCT U GLU (test code = 3256) Negative - Negative POCT U KETONE (test code = 3258) Negative - Negative POCT U UROBILI (test code = 3260) 0.2 mg/dl 0.2-1 POCT U BILI (test code = 3261) Negative Negative - Negative POCT U BLD (test code = 3257) Negative Negative - Negative POCT U COLOR (test code = 3266) Yellow POCT U APPEAR (test code = 3267) Clear Lab Interpretation (test code = 30751-7) [facility] [id number] 14:25:00 Test Item Value Reference Range Interpretation Comments POCT U SP GRAV (test code = 1.005 mg/dl 1.005-1.025 3255) POCT PH U (test code = 3254) 5.5 mg/dl 5-8 POCT U LEUK EST (test code = Negative Negative - Negative 3263) POCT U NIT (test code = 3262) Negative Negative - Negative POCT U PROT (test code = Negative Negative - Negative 3259) POCT U GLU (test code = 3256) Negative - Negative POCT U KETONE (test code = Negative - Negative 3258) POCT U UROBILI (test code = 0.2 mg/dl 0.2-1 3260) POCT U BILI (test code = Negative Negative - Negative 3261) POCT U BLD (test code = 3257) Negative Negative - Negative POCT U COLOR (test code = Yellow 3266) POCT U APPEAR (test code = Clear 3267) Lab Interpretation (test code Abnormal = 59886-6) [facility]
--- NOTE | 2021-12-14 16:55 | RAD REPORT ---
EXAM DESCRIPTION: US - Lower Extremity Artery Uni Ltd - 12/14/2021 4:42 pm CLINICAL HISTORY: Pain Leg pain, claudication COMPARISON: Stone Protocol dated 05/24/2021 FINDINGS: Grayscale, color and power Doppler of the right lower extremity arterial system was perfor med. Diffuse monophasic flow is seen in the right lower extremity arterial system. This likely indica yoanna inflow stenosis. IMPRESSION: Monophasic waveforms throughout the right lower extremity arterial system. This would in dicate inflow disease/stenosis is likely present.
--- NOTE | 2021-12-14 17:10 | RAD REPORT ---
EXAM DESCRIPTION: US - Extremity Venous Uni Ltd - 12/14/2021 5:05 pm CLINICAL HISTORY: Pain Leg swelling and edema. COMPARISON: UP LOW EXT ARTERIES MULTI dated 01/11/2013 FINDINGS: Right lower extremity venous system was interrogated with Doppler technique. Normal flow, compressibility and augmentation was noted. There is no DVT present. IMPRESSION: No evidence of right lower extremity deep venous thrombosis.
--- NOTE | 2021-12-14 18:05 | RAD REPORT ---
EXAM DESCRIPTION: RAD - Chest Single View - 12/14/2021 6:00 pm CLINICAL HISTORY: right lower leg swelling Chest pain. COMPARISON: Chest Single View dated 10/07/2019; Chest Pa And Lat (2 Views) dated 02/18/2016 FINDINGS: Portable technique limits examination quality. The lungs are grossly clear. The heart is normal in size. No displaced fractures. IMPRESSION: No acute intrathoracic process suspected.
[2021-12-14 18:42] LABS: Absolute Lymphocytes (CBC) 2.4 K/uL (0.7-4.9); Hematocrit 37.4 % (39.6-49.0); Lymphocytes % 25.9 % (15.3-44.8); MCV 79.1 fL (80-100); MPV 7.9 fL (7.6-11.3); RBC Red Blood Cell Count 4.73 M/uL (4.33-5.43)
[2021-12-14 18:45] LABS: Protime INR 1.14
[2021-12-14] MEDS ORDERED: WATER FOR INJ,STERILE 20 ML ONE (18:47)
[2021-12-14] MEDS ORDERED: VANCOMYCIN 1 GM/VIAL ONE (18:48)
[2021-12-14] MEDS ORDERED: NA CHLORIDE 0.9% 250 ML ONE (18:48)
--- NOTE | 2021-12-14 19:31 | ER ---
Nurse's Notes [facility] Name: Jose E Yañez Age: 61 yrs Sex: Male : 1960 Arrival Date: 12/14/2021 Time: 15:35 Bed 2 Private MD: Diagnosis: Cellulitis of right lower limb Presentation: 12/14 15:52 Chief complaint: Patient states: I started having redness, swelling, and pain in my bm7 right leg. I went to [facility] and they gave me two different antibiotics but they have not helped. They said I did not have a blood clot. I went to Dr. Blackman today and said to come here. Coronavirus screen: At this time, the client does not indicate any symptoms associated with coronavirus-19. Ebola Screen: No symptoms or risks identified at this time. Initial Sepsis Screen: Does the patient meet any 2 criteria? Yes Does the patient have a suspected source of infection? Yes: Skin breakdown/wound. Risk Assessment: Do you want to hurt yourself or someone else? Patient reports no desire to harm self or others. Note Dr. Blackman called to inform me that he is sending the patient over to rule out cellulitis because the patient is not responding to oral antibiotics. Onset of symptoms was December 11, 2021. Care prior to arrival: Dr. Malik appt. 15:52 Method Of Arrival: Wheelchair bm7 15:52 Acuity: IVANNA 3 bm7 Triage Assessment: 15:59 General: Appears in no apparent distress. uncomfortable, Behavior is calm, cooperative, bm7 appropriate for age. Pain: Complains of pain in right leg. EENT: No deficits noted. No signs and/or symptoms were reported regarding the EENT system. Neuro: No deficits noted. Cardiovascular: No deficits noted. Respiratory: No deficits noted. GI: No deficits noted. No signs and/or symptoms were reported involving the gastrointestinal system. : No deficits noted. No signs and/or symptoms were reported regarding the genitourinary system. Derm: Skin is intact, Skin is dry, Skin temperature is warm swelling and redness to the RLE Reports pain. Musculoskeletal: Reports pain in right leg. Historical: - Allergies: 15:55 Sulfa (Sulfonamide Antibiotics); bm7 - Home Meds: 15:55 Jenadueto 2,5 mg twice a day for Diabetes [Active]; leflunomide 20 mg oral tab 1 tab bm7 once daily [Active]; Flomax 0.4 mg Oral cap 1 cap once daily [Active]; cephalexin 500 mg Oral cap 1 cap 4 times per day [Active]; doxycycline hyclate 100 mg Oral cap 1 cap 2 times per day [Active]; cetirizine 10 mg oral tab 1 tab once daily [Active]; lisinopril 20 mg Oral tab 1 tab once daily [Active]; Xarelto 20 mg Oral tab 1 tab once daily [Active]; rosuvastatin 5 mg Oral tab [Active]; metoprolol tartrate 25 mg Oral tab [Active]; - PMHx: 15:59 Diabetes mellitus; Hypertensive disorder; Atrial fibrillation; bm7 - PSHx: 15:59 None; bm7 - Immunization history:: Adult Immunizations up to date, Client reports receiving the 2nd dose of the Covid vaccine, Client reports receiving the 1st dose of the Covid vaccine, Pneumococcal vaccine is up to date. - Social history:: Smoking status: Patient denies any tobacco usage or history of. Screenin:00 Fall Risk Secondary diagnosis (15 points) IV access (20 points). Gait- Impaired (20 eh3 pts.). Total Ghotra Fall Scale indicates High Risk Score (45 or more points). Fall prevention measures have been instituted. Side Rails Up X 2 Placed Close to Nursing Station Frequent Obs/Assessments Occuring As available patient and family educated on Fall Prevention Program and Strategies. 18:05 Abuse screen: Denies threats or abuse. Denies injuries from another. Nutritional eh3 screening: No deficits noted. Tuberculosis screening: No symptoms or risk factors identified. Assessment: 18:05 General: Appears in no apparent distress. comfortable, Behavior is calm, cooperative, eh3 appropriate for age. Pain: Denies pain. Neuro: Level of Consciousness is awake, alert, obeys commands, Oriented to person, place, time, situation. Cardiovascular: Capillary refill < 3 seconds Patient's skin is warm and dry. Respiratory: Airway is patent Respiratory effort is even, unlabored. GI: No signs and/or symptoms were reported involving the gastrointestinal system. : No signs and/or symptoms were reported regarding the genitourinary system. EENT: No signs and/or symptoms were reported regarding the EENT system. Derm: Skin is fragile, is thin, Skin is dry, Skin is pink, warm \T\ dry. redness and swelling of right foot. Musculoskeletal: Circulation, motion, and sensation intact. Range of motion: intact in all extremities. 18:58 Reassessment: Patient and/or family updated on plan of care and expected duration. Pain eh3 level reassessed. Patient is alert, oriented x 3, equal unlabored respirations, skin warm/dry/pink. 20:00 Reassessment: Patient and/or family updated on plan of care and expected duration. Pain eh3 level reassessed. Patient is alert, oriented x 3, equal unlabored respirations, skin warm/dry/pink. 21:02 Reassessment: Attempted to call report to 4th floor, Balwinder said nurse not ready to take eh3 another admission at this time. Will attempt to call report again in 15 minutes. 21:30 Reassessment: attempted to call report to 4 th floor. nurse states receiving nurse will aa9 call back shortly. 22:04 Reassessment: attempted to call report. Receiving nurse was not ready. aa9 Vital Signs: 15:51 BP 115 / 57; Pulse 83; Resp 16; Temp 98.7(TE); Pulse Ox 100% on R/A; Weight 106.59 kg bm7 (R); Height 5 ft. 3 in. (160.02 cm); Pain 8/10; 18:00 BP 143 / 64; Pulse 73; Resp 16; Pulse Ox 100% on R/A; Pain 0/10; eh3 19:00 BP 160 / 76; Pulse 68; Resp 14; Pulse Ox 100% on R/A; eh3 20:00 BP 141 / 77; Pulse 80; Resp 22; Pulse Ox 98% on R/A; eh3 21:51 BP 162 / 78; Pulse 72; Resp 16 S; Pulse Ox 100% on R/A; Pain 0/10; aa9 15:51 Body Mass Index 41.63 (106.59 kg, 160.02 cm) bm7 ED Course: 15:35 Patient arrived in ED. mr 15:51 Arm band placed on right wrist. bm7 15:54 Triage completed. bm7 15:57 [facility] cp 15:57 Cornelius Gibson MD is Attending Physician. cp 16:43 US Lower Extremity Artery Uni Ltd In Process Unspecified. EDMS 16:43 US Extremity Venous Unilateral Ltd In Process Unspecified. EDMS 17:59 Chely Mcintyre, RN is Primary Nurse. eh3 18:00 Patient has correct armband on for positive identification. Placed in gown. Bed in low eh3 position. Call light in reach. Side rails up X2. Client placed on continuous cardiac and pulse oximetry monitoring. NIBP monitoring applied. Door closed. Noise minimized. Lights dimmed. Warm blanket given. 18:00 No provider procedures requiring assistance completed. eh3 18:01 XRAY Chest (1 view) In Process Unspecified. EDMS 18:26 Inserted saline lock: 20 gauge in left antecubital area, using aseptic technique. Blood ld1 collected. 18:29 Ptt, Activated Sent. eh3 18:29 Procalcitonin Sent. eh3 18:29 Blood Culture Adult (2) Sent. eh3 18:29 Lactate Sent. eh3 18:58 Warm blanket given. Pillow given. eh3 19:31 Aubrey Phelan is Hospitalizing Provider. cp 20:29 Brijesh Solis MD is Hospitalizing Provider. la1 20:56 Foot Right 3 View XRAY In Process Unspecified. EDMS 22:09 Patient admitted, IV remains in place. aa9 Administered Medications: 16:45 Drug: vancoMYCIN 1 grams Route: IVPB; Infused Over: 2 hrs; Site: left antecubital; eh3 20:26 Follow up: Response: No adverse reaction; IV Intake: 250ml eh3 22:10 Follow up: Response: No adverse reaction; IV Status: Completed infusion aa9 Medication: 18:05 VIS not applicable for this client. eh3 Intake: 20:26 IV: 250ml; Total: 250ml. eh3 Outcome: 19:31 Decision to Hospitalize by Provider. cp 22:07 Admitted to Tele accompanied by tech, via wheelchair, with chart, Report called to aa9 Petty 22:07 Condition: stable 22:07 Instructed on the need for admit. 22:33 Patient left the ED. aa9 Signatures: Dispatcher [employer] EDME Twila Kidd mr Tapan Aubrey, CUSTOMER COUNTER REPRESENTATIVE-C CUSTOMER COUNTER REPRESENTATIVE-Cla1 Cornelius Ann PA PA Cayla Pedro, SANDI RN bm7 Peggy Garibay RN RN ld1 Chely Mcintyre RN RN eh3 Ronda Hernandez RN RN aa9 Corrections: (The following items were deleted from the chart) 16:00 15:55 Home Meds: rosuvastatin 20 mg oral tab 1 tab once daily; bm7 bm7 16:00 15:55 PMHx: Diabetes - NIDDM; 7 bm7 16:00 15:55 PMHx: Atrial Fib; 7 7
--- NOTE | 2021-12-14 19:31 | EDPHYS ---
Physician Documentation [facility] Name: Jose E Yañez Age: 61 yrs Sex: Male : 1960 Arrival Date: 12/14/2021 Time: 15:35 Bed 2 Private MD: ED Physician Cornelius Gibson HPI: 12/14 16:10 This 61 yrs old Male presents to ER via Wheelchair with complaints of Feet Swelling, cp Leg Swelling. 16:10 The patient presents with pain, that is acute, swelling, tenderness. The complaints cp affect the right lower leg and right foot. Context: resulted from an unknown cause. Onset: The symptoms/episode began/occurred this past Monday. 16:10 Associated signs and symptoms: Pertinent positives: swelling, erythema, Pertinent cp negatives calf tenderness, fever, vomiting. Patient reports noticing redness and swelling to right lower leg and right foot since this past Monday. Was seen at [place] [facility] and prescribed Cephalexin and Doxycycline Monday night. Historical: - Allergies: 15:55 Sulfa (Sulfonamide Antibiotics); bm7 - Home Meds: 15:55 Jenadueto 2,5 mg twice a day for Diabetes [Active]; leflunomide 20 mg oral tab 1 tab bm7 once daily [Active]; Flomax 0.4 mg Oral cap 1 cap once daily [Active]; cephalexin 500 mg Oral cap 1 cap 4 times per day [Active]; doxycycline hyclate 100 mg Oral cap 1 cap 2 times per day [Active]; cetirizine 10 mg oral tab 1 tab once daily [Active]; lisinopril 20 mg Oral tab 1 tab once daily [Active]; Xarelto 20 mg Oral tab 1 tab once daily [Active]; rosuvastatin 5 mg Oral tab [Active]; metoprolol tartrate 25 mg Oral tab [Active]; - PMHx: 15:59 Diabetes mellitus; Hypertensive disorder; Atrial fibrillation; bm7 - PSHx: 15:59 None; bm7 - Immunization history:: Adult Immunizations up to date, Client reports receiving the 2nd dose of the Covid vaccine, Client reports receiving the 1st dose of the Covid vaccine, Pneumococcal vaccine is up to date. - Social history:: Smoking status: Patient denies any tobacco usage or history of. ROS: 16:15 Constitutional: Negative for body aches, chills, fever, poor PO intake. cp 16:15 Eyes: Negative for injury, pain, redness, and discharge. cp 16:15 ENT: Negative for drainage from ear(s), ear pain, sore throat, difficulty swallowing, difficulty handling secretions. 16:15 Cardiovascular: Negative for chest pain, palpitations. 16:15 Respiratory: Negative for cough, shortness of breath, wheezing. 16:15 Abdomen/GI: Negative for abdominal pain, nausea, vomiting, and diarrhea. 16:15 MS/extremity: Positive for erythema, pain, swelling, tenderness, of the right lower leg and right foot. 16:15 Neuro: Negative for altered mental status, headache, weakness. 16:15 All other systems are negative. Exam: 16:20 Constitutional: The patient appears in no acute distress, alert, awake, cp non-diaphoretic, non-toxic, well developed, well nourished. 16:20 Head/Face: Normocephalic, atraumatic. cp 16:20 Eyes: Periorbital structures: appear normal, Conjunctiva: normal, no exudate, no injection, Sclera: no appreciated abnormality, Lids and lashes: appear normal, bilaterally. 16:20 ENT: External ear(s): Nose: is normal, Mouth: Lips: moist, Oral mucosa: moist, Posterior pharynx: Airway: no evidence of obstruction, patent. 16:20 Chest/axilla: Inspection: normal. 16:20 Cardiovascular: Rate: normal, Rhythm: regular, JVD: is not appreciated. 16:20 Respiratory: the patient does not display signs of respiratory distress, Respirations: normal, no use of accessory muscles, no retractions, labored breathing, is not present, Breath sounds: are clear throughout, no decreased breath sounds, no stridor, no wheezing. 16:20 Abdomen/GI: Inspection: abdomen appears normal, Palpation: abdomen is soft and non-tender, in all quadrants. 16:20 Back: pain, is absent, ROM is normal. 16:20 Musculoskeletal/extremity: Extremities: noted in the right lower leg and right foot: erythema, swelling, tenderness, Pulses: weak dorsalis pedis pulse right foot. 16:20 Neuro: Orientation: to person, place \T\ time. Mentation: is normal, Motor: moves all fours, strength is normal, Sensation: is normal. 18:10 ECG was reviewed by the Attending Physician. Vital Signs: 15:51 BP 115 / 57; Pulse 83; Resp 16; Temp 98.7(TE); Pulse Ox 100% on R/A; Weight 106.59 kg bm7 (R); Height 5 ft. 3 in. (160.02 cm); Pain 8/10; 18:00 BP 143 / 64; Pulse 73; Resp 16; Pulse Ox 100% on R/A; Pain 0/10; eh3 19:00 BP 160 / 76; Pulse 68; Resp 14; Pulse Ox 100% on R/A; eh3 20:00 BP 141 / 77; Pulse 80; Resp 22; Pulse Ox 98% on R/A; eh3 21:51 BP 162 / 78; Pulse 72; Resp 16 S; Pulse Ox 100% on R/A; Pain 0/10; aa9 15:51 Body Mass Index 41.63 (106.59 kg, 160.02 cm) bm7 MDM: 17:58 Patient medically screened. 19:30 Data reviewed: vital signs, nurses notes, lab test result(s), EKG, radiologic studies, cp plain films, ultrasound. 19:30 Test interpretation: by ED physician or midlevel provider: ECG, plain radiologic cp studies. Physician consultation: Aubrey Phelan was contacted at 19:20, regarding admission, to the medical/surgical unit. patient's condition. 12/14 16:05 Order name: Basic Metabolic Panel; Complete Time: 19:24 12/14 19:24 Interpretation: Abnormal: GLUC 242. 12/14 16:05 Order name: CBC with Diff; Complete Time: 19:24 12/14 19:24 Interpretation: Normal except: HGB 12.4; HCT 37.4; MCV 79.1; MCH 26.1; RDW 16.4. 12/14 16:05 Order name: Magnesium; Complete Time: 19:24 12/14 16:05 Order name: PT-INR; Complete Time: 19:24 12/14 16:05 Order name: Lactate; Complete Time: 19:24 12/14 16:05 Order name: Procalcitonin; Complete Time: 20:12 12/14 16:05 Order name: XRAY Chest (1 view); Complete Time: 19:24 12/14 16:05 Order name: Blood Culture Adult (2) cp 12/14 16:05 Order name: Ptt, Activated; Complete Time: 19:24 cp 12/14 16:05 Order name: US Lower Extremity Artery Uni Ltd; Complete Time: 19:24 cp 12/14 16:05 Order name: US Extremity Venous Unilateral Ltd; Complete Time: 19:24 cp 12/14 19:25 Interpretation: Report reviewed. 12/14 19:36 Order name: SARS RAPID; Complete Time: 21:10 as6 12/14 20:28 Order name: Foot Right 3 View XRAY; Complete Time: 21:10 la1 12/14 16:05 Order name: EKG; Complete Time: 16:09 12/14 16:05 Order name: Cardiac monitoring; Complete Time: 18:04 12/14 16:05 Order name: EKG - Nurse/Tech; Complete Time: 18:29 12/14 16:05 Order name: IV Saline Lock; Complete Time: 18:29 12/14 16:05 Order name: Labs collected and sent; Complete Time: 18:29 12/14 16:05 Order name: O2 Per Protocol; Complete Time: 18:04 12/14 16:05 Order name: O2 Sat Monitoring; Complete Time: 18:05 cp EC:10 Rate is 73 beats/min. Rhythm is regular. WI interval is normal. QRS interval is normal. cp QT interval is normal. T waves are Inverted in leads III, aVR. Interpreted by me. Reviewed by me. Administered Medications: 16:45 Drug: vancoMYCIN 1 grams Route: IVPB; Infused Over: 2 hrs; Site: left antecubital; eh3 20:26 Follow up: Response: No adverse reaction; IV Intake: 250ml eh3 22:10 Follow up: Response: No adverse reaction; IV Status: Completed infusion aa9 Disposition Summary: 12/14/21 19:31 Hospitalization Ordered Hospitalization Status: Inpatient Admission cp Location: Telemetry/[facility] (Inpatient) cp Condition: Stable cp Problem: new cp Symptoms: have improved cp Bed/Room Type: Standard cp Provider: Brijesh Solis(12/14/21 20:29) la1 Room Assignment: [facility](12/14/21 20:55) Diagnosis - Cellulitis of right lower limb cp Forms: - Medication Reconciliation Form cp - SBAR form cp Signatures: Dispatcher [employer] EDWV Roxanna Bolden RN RN mw Aubrey Phelan, MRP CONTROLLER-C MRP CONTROLLER-Cla1 Cornelius Ann PA PA cp McCarthy, Brittany, RN RN bm7 Chely Mcintyre RN RN eh3 Ronda Hernandez RN aa9 Corrections: (The following items were deleted from the chart) 16:00 15:55 Home Meds: rosuvastatin 20 mg oral tab 1 tab once daily; [place] [address] 16:00 15:55 PMHx: Diabetes - NIDDM; [place] [address] 16:00 15:55 PMHx: Atrial Fib; [place] [address] 16:09 16:09 Chest Single View ordered. EDWV EDMS 20:29 19:31 Aubrey Phelan cp la1 20:55 19:31 michael childress
[2021-12-14 20:36] LABS: SARS-CoV-2 Antigen Rapid Res Negative (Negative)
--- NOTE | 2021-12-14 21:03 | RAD REPORT ---
EXAM DESCRIPTION: RAD - Foot Right 3 View - 12/14/2021 8:54 pm CLINICAL HISTORY: cellulitis, hx surgery right foot COMPARISON: No comparisons FINDINGS: Moderate soft tissue swelling is seen along the dorsum of the foot. Bony fusion with hardw are in place intertarsal region. Small calcaneal spurs. No radiographic finding to indicate osteomyel itis. No soft tissue gas.
--- NOTE | 2021-12-14 21:08 | P.HP ---
Certification for Inpatient Patient admitted to: Inpatient With expected LOS: >2 Midnights Patient will require the following post-hospital care: None Practitioner: I am a practitioner with admitting privileges, knowledge of patient current condition, hospital course, and medical plan of care. Services: Services provided to patient in accordance with Admission requirements found in Title 42 Section 412.3 of the Code of Federal Regulations <ReaganthiAubrey Hernández - Last Filed: 12/14/21 21:01> Patient History Date of Service: 12/14/21 Reason for admission: RLE cellulitis History of Present Illness: 61-year-old male with history of paroxysmal atrial fibrillation, diabetes mellitus type 2insulin-dependent, hypertension presents the emergency department with concern for an cellulitis of the right lower extremity. He reports that he noticed the redness and pain beginning on Monday and was prescribed antibiotics outside hospital on Monday morning Keflex/doxycycline. He has been taking antibiotics since then noticed that the redness and swelling/pain was getting worse and was instructed to come to the emergency depa rtment for further evaluation by his PCP. He was evaluated here in the emergency department his white blood cell count was 9.2 glucose 242 venous Doppler negative for DVT arterial Doppler shows monophasic flow in right lower extremity chest x-ray negative for acute findings patient with significant cellulitis in the right lower extremity also some questionable abscesses overlying the tibia. He was started on IV of antibioticsvancomycin only 1 out of 4 SIRS criteria present with respiratory rate greater than 20 on 1 occasion. Surgery consulted given questionable presence of abscesses related cellulitis. Will admit for further evaluation and management. 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 - Family History Dad -: Other (see notes) Notes: Alzheimers Mom -: Other (see notes) Notes: circulatory problems - Social History Smoking Status: Never smoker Alcohol use: No CD- Drugs: No Caffeine use: Yes Place of Residence: Home <Aubrey Phelan - Last Filed: 12/14/21 21:01> Date of Service: 12/15/21 <Brijesh Solis - Last Filed: 12/15/21 20:04> Allergies Sulfa (Sulfonamide Antibiotics) Allergy (Verified 12/14/21 22:47) Unknown Home Medications: Rosuvastatin Calcium 5 mg PO BEDTIME 10/07/19 Cetirizine HCl 1 tab PO DAILY 12/14/21 Insulin Aspart [Novolog Flexpen] 100 units SQ SEECOM 12/14/21 Insulin Glargine,Hum.rec.anlog [Lantus] 5 units SQ SEECOM 12/14/21 Linagliptin/Metformin HCl [Jentadueto 2.5 mg-1000 mg Tab] 1 tab PO BID 12/14/21 lisinopriL [Lisinopril] 1 tab PO DAILY 12/14/21 Metoprolol Tartrate [Lopressor] 100 mg PO BID 12/15/21 Review of Systems 10-point ROS is otherwise unremarkable Musculoskeletal: Leg Pain, Foot Pain Integumentary: As per HPI <Aubrey Phelan - Last Filed: 12/14/21 21:01> Physical Examination - Physical Exam General: Alert, In no apparent distress, Oriented x3 HEENT: Atraumatic, PERRLA, Mucous membr. moist/pink, EOMI, Sclerae nonicteric Neck: Supple, 2+ carotid pulse no bruit, No LAD, Without JVD or thyroid abnormality Respiratory: Clear to auscultation bilaterally, Normal air movement Cardiovascular: Regular rate/rhythm, Normal S1 S2 Gastrointestinal: Normal bowel sounds, No tenderness Musculoskeletal: No tenderness Integumentary: Tenderness/swelling (RLE), Erythema, Warmth Neurological: Normal speech, Normal strength at 5/5 x4 extr, Normal tone, Normal affect - Studies Laboratory Data (last 24 hrs) 12/14/21 18:19: PT 12.6 H, INR 1.14, APTT 36.0 12/14/21 18:19: WBC 9.20, Hgb 12.4 L, Hct 37.4 L, Plt Count 343 12/14/21 18:19: Sodium 137, Potassium 4.0, BUN 8, Creatinine 0.74, Glucose 242 H, Magnesium 2.0 <Aubrey Phelan - Last Filed: 12/14/21 21:01> Assessment and Plan - Plan Assessment: Right lower extremity cellulitisfailed outpatient therapy Paroxysmal atrial fibrillation not on chronic anticoagulation Diabetes mellitus type 2insulin-dependent with hyperglycemia Hypertension Plan: Right lower extremity cellulitisfailed outpatient therapy: Patient was on Keflex/Doxy starting on 12/11/2021 with significant worsening of symptoms. Currently on IV vancomycin, there does appear to be is two small abscesses overlying the tibia General surgery consulted. 1 out of 4 SIRS criteria with tachypnea noted currently no sepsis present on admission. Blood cultures were obtained in the emergency department will follow. No DVT present he did have surgery to his right foot around 1999, x-ray pending for further evaluation. 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 Monitor on telemetry. Diabetes mellitus type 2insulin-dependent with hyperglycemia: ACHS Accu-Chek, sliding scale insulin. A1c in the morning. Hypertension: Continue home medications as appropriate. DVT PPX:SCD Code status: Full Discharge Plan: Home - Advance Directives Does patient have a Living Will: No Does patient have a Durable POA for Healthcare: No - Code Status/Comfort Care Code Status Assessed: Yes (full code) Critical Care: No Time Spent Managing Pts Care (In Minutes): 70 <Aubrey Phelan - Last Filed: 12/14/21 21:01> Physician Review: Patient Assessed, Agree with Above Assessment and Plan <Brijesh Solis - Last Filed: 12/15/21 20:04>
[2021-12-14] MEDS ORDERED: VANCOMYCIN 1 GM in NA CHLORIDE 0.9% 250 ML IVPB SCH (22:39)
[2021-12-14] MEDS ORDERED: ONDANSETRON 4 MG/2 ML VIAL IV PRN (22:39)
[2021-12-14] MEDS ORDERED: VANCOMYCIN 1 GM in NA CHLORIDE 0.9% 250 ML IVPB ONE (23:00)
[2021-12-14] MEDS: D5.45NS W/KCL 20MEQ 1,000 ML IV SCH (23:35)
[2021-12-14] MEDS: INSULIN -REGULAR HUMAN 50 UNIT/0.5 ML ML SQ SCH (23:39)
[2021-12-15 00:57] LABS: Urine Mucus Slight /HPF (None Seen); Urine RBC <5 /HPF (None Seen)
[2021-12-15 01:02] LABS: Urine Bilirubin NEGATIVE (Negative); Urine Blood Negative (Negative); Urine Clarity Clear (Clear); Urine Color Light-Yellow (Yellow); Urine Glucose 4+ (Over) (Negative); Urine Protein TRACE (Negative); Urine Urobilinogen Normal (Normal); Urine pH 5.5 (5.0-7.0)
[2021-12-15 04:11] LABS: Absolute Lymphocytes (CBC) 2.5 K/uL (0.7-4.9); Hematocrit 33.7 % (39.6-49.0); Lymphocytes % 31.2 % (15.3-44.8); MCV 78.9 fL (80-100); RBC Red Blood Cell Count 4.27 M/uL (4.33-5.43)
[2021-12-15 04:20] LABS: Albumin 2.4 g/dL (3.4-5.0); Bilirubin Total 0.6 mg/dL (0.2-1.0); Potassium 4.6 mmol/L (3.5-5.1); Protein, Total 7.2 g/dL (6.4-8.2)
[2021-12-15] MEDS: INSULIN -REGULAR HUMAN 50 UNIT/0.5 ML ML SQ SCH ×4 (07:30→21:23)
--- NOTE | 2021-12-15 08:16 | RAD REPORT ---
EXAM DESCRIPTION: CT - Lower Extremity W/ Cont - 12/15/2021 7:41 am CLINICAL HISTORY: abscess?Cellulitis, right leg swelling and pain, findings primarily [id number] COMPARISON: No comparisons TECHNIQUE: Following nonionic IV contrast administration, axial 5 millimeter thick images were obtai veronica from the distal femur through the foot. Sagittal and coronal reconstruction images were generated and reviewed. All CT scans are performed using dose optimization technique as appropriate and may include automate d exposure control or mA/KV adjustment according to patient size. FINDINGS: Surgical hardware is in place from multiple sites of tarsal bone fusion. No bone destructi ve process or acute bone pathology. No air or foreign body in the soft tissues. Soft tissue edema is seen in the subcutaneous fatty tissu es along the anterior aspect of the below-knee lower extremity. Edema is also present in the subcutan eous fat posteriorly near the ankle. Edema continues into the dorsum of the foot. No edema is seen deep to the outer skeletal muscle fascia. No skeletal muscle abnormalities identifie d. No abscess or drainable fluid collection in the soft tissues. IMPRESSION: No abscess or drainable fluid collection. Lower leg subcutaneous fatty edema is seen as detailed. No air or foreign body seen.
[2021-12-15] MEDS: VANCOMYCIN 1.75 GM in NA CHLORIDE 0.9% 500 ML IVPB SCH ×2 (11:43→23:35)
[2021-12-15] MEDS: ACETAMINOPHEN 500 MG TAB PO PRN ×2 (11:55→16:16)
[2021-12-15] MEDS ORDERED: VANCOMYCIN 1.75 GM in NA CHLORIDE 0.9% 500 ML IVPB SCH (12:00)
[2021-12-15] MEDS ORDERED: VANCOMYCIN 2 GM in NA CHLORIDE 0.9% 500 ML IVPB SCH (12:00)
--- NOTE | 2021-12-15 15:25 | CON ---
Date of Consultation: 12/15/2021 Brief History Of Present Illness: The patient is a 61-year-old male with a history of paroxysmal atr ial fibrillation, normally maintained on Xarelto, but has not been taking for some time, who has a hi story significant for diabetes type 2 with hypertension, who presents to the ER with concerns of cell ulitis of the right lower extremity. He noticed it began on Monday and began progressively worse. He was prescribed antibiotics, which were Keflex and doxycycline, which he states he started on . He has been taking the antibiotics, but noticed progressive worsening, swelling, pain, tendernes s of the right lower extremity, and he was evaluated by his PCP and sent to the emergency room. He w as admitted to the hospital and started on treatment at this point. During my examination, he contin ues to complain of pain of the entire right lower extremity with swelling, pain, tenderness, and redn ess extending up to just below the knee. He states he has not had episodes like this before. Past Medical History: Significant for hypertension, diabetes, atrial fibrillation. Past Surgical History: Includes right foot fracture x2, removal of infected wound of his scalp, cerv ical neck surgery. Home Medications: Included metformin, Xarelto, , sotalol. Allergies: TO SULFA, BUT HE STATES HE HAS BEEN NONCOMPLIANT WITH TAKING HIS HOME MEDICATIONS PRES CRIBED IN SEVERAL MONTHS. Family History: History of Alzheimer in his father. His mother had circulatory problems. Social History: He denies smoking, alcohol, or recreational drug use. Review of Systems: Ten-point review of systems other than HPI, denies. Physical Examination: Vital Signs: At the time of my examination; his BMI is 32.4. His temperature was 97.3, blood pressu re 171/84, pulse 65, respiratory rate 18, SpO2 93% on room air. General: He is awake, alert, and oriented. Psychiatric: He is appropriate, conversive. HEENT: Normocephalic. Sclerae were anicteric. Mucous membranes moist. Oropharynx clear. Neck: Supple without JVD. Chest: Expansion and excursion. Cardiovascular: Irregular rhythm, regular rate. Pulmonary: Clear to auscultation bilaterally. Extremities: Focused examination of the lower extremities; his right lower extremity has significant cellulitic changes beginning at the ankle area and extending up to below the tibia. There was swell ing and tenderness to the entire lower extremity with some sparing of the toes. There are 2 nodules anterior to the tibia in 2 different locations, 1 near the tibial plateau and 1 just above the ankle. Both of these are soft and tender and minimal fluctuance concerning for developing abscess. Laboratory Data: He had a laboratory exam reveals a white blood cell count of 8.1, hemoglobin 11.2, hematocrit 33.7, platelet count was 338. His PT on admission 12.6, INR 1.4, PTT 36. His sodium was 140, potassium 4.6, chloride 105, carbon dioxide 27, BUN 7, creatinine 0.59, glucose was 285. His he moglobin A1c was greater than 14. His procalcitonin was 0.5. He had imaging performed, which includ ed a chest x-ray, which was officially read no acute intrathoracic process suspected. He additionall y had a Doppler ultrasound. The official dictations for all radiology are unable to be accessed with the current computer system; however, he had no flow restricting lesions by description in his venou s ultrasound and he had a monophasic flow in the right lower extremity consistent with significant pe ripheral arterial disease. The official dictation is unavailable due to computer unavailability. Assessment And Plan: This is a 61-year-old male, who comes in with diabetic lower extremity, celluli tic changes, and significant peripheral arterial disease. 1.IV fluid hydration. 2.Antibiotic coverage. 3.Serial exams. 4.I will order a CT scan of the lower extremity to better delineate and see if there are any drainab le collections. We will continue antibiotic treatment. We are going to try nonoperative management initially unless there was an obvious drainable fluid collection; however, we will continue serial ex ams with antibiotic treatment to see if he responds to therapy. In addition, I recommend evaluation of his peripheral arterial disease with our woodenware assembler to see if he needs peripheral arterial inter vention for significant peripheral arterial disease. 5.Medical management as his blood sugar is significantly out of control. I recommend re-education w ith respect to treatment of his diabetes. 6.Should he fail nonoperative management with antibiotics, I have explained the risks, benefits, and alternatives of incision and drainage of these various abscesses along with debridement of tissue in cluding, but not limited to bleeding, infection, damage to the surrounding tissues, need for further operation and procedures nerve injuries, ongoing wound care. The patient agreed to proceed as indica higinio. Thank you for this interesting consult. SIXTO Voice ID: [id number] Report ID: [id number]
[2021-12-15] MEDS: D5.45NS W/KCL 20MEQ 1,000 ML IV SCH ×2 (16:11→18:39)
--- NOTE | 2021-12-15 17:10 | EKG ---
Test Date: 2021-12-14 Test Time: 18:04:49 Composition Professor: CATRACHITA MEASUREMENT RESULTS: Intervals: Rate: 73 IL: 130 QRSD: 86 QT: 384 QTc: 423 Spring: P: 14 IL: 130 QRS: 11 T: 20 INTERPRETIVE STATEMENTS: Normal sinus rhythm Normal ECG Compared to ECG 10/07/2019 14:53:19 T-wave abnormality no longer present Electronically Signed On 12-15-21 17:06:49 CDT by Jac Lanier
--- NOTE | 2021-12-15 19:54 | P.PN ---
Subjective Date of Service: 12/15/21 Chief Complaint: RLE cellulitis No acute events overnight. He reports persistent right lower extremity pain. He denies any andressa purulent drainage. Review of Systems 10-point ROS is otherwise unremarkable Musculoskeletal: Leg Pain (right) Physical Examination - Vital Signs Temperature: 97.4 F Blood Pressure: 187/86 Pulse: 66 Respirations: 18 Pulse Ox (%): 98 - Physical Exam General: Alert, In no apparent distress, Oriented x3 HEENT: Atraumatic, PERRLA, Mucous membr. moist/pink, EOMI, Sclerae nonicteric Neck: Supple, JVD not distended Respiratory: Clear to auscultation bilaterally, Normal air movement Cardiovascular: Regular rate/rhythm, Normal S1 S2, No gallops, No rubs, No murmurs, Edema (1+ RLE) Gastrointestinal: Normal bowel sounds, Soft and benign, Non-distended, No tenderness, No rebound, No guarding Musculoskeletal: No clubbing, Swelling (RLE), Erythema (RLE), Tenderness (RLE) Integumentary: No rashes Neurological: Normal speech, Cranial nerves 3-12 intact, Normal affect Assessment And Plan - Plan # Right Lower Extremity Non-Purulent Cellulitis - Failed Outpatient Treatment # Suspected Peripheral Artery Disease - Does not currently meet SIRS criteria - General Surgery consulted and spoke with Dr. Robert - recommendations appreciated - Right foot x-ray = "No radiographic finding to indicate osteomyelitis. No soft tissue gas." - CT RLE = "No abscess or drainable fluid collection. Lower leg subcutaneous fatty edema is seen as detailed. No air or foreign body seen." - RLE Doppler = "Monophasic waveforms throughout the right lower extremity arterial system. This would indicate inflow disease/stenosis is likely present." - Continue Vancomycin + Cefepime for now - Aspirin + statin for suspected PAD # Hyperglycemia in Type II Diabetes Mellitus - Hgb A1c > 14.0 % - Correction scale insulin ordered # Paroxysmal Atrial Fibrillation His [id number] = 2 (HTN=1, DM=1) - Previously on rivaroxaban, but stopped by PCP after discussion regarding his low [id number] score - Continue home aspirin, metoprolol # Hypertension - Continue home losartan, metoprolol # Dyslipidemia - Continue home statin Brijesh Solis M.D.
[2021-12-15] MEDS: METOPROLOL TAR 50 MG TAB PO SCH (21:20)
[2021-12-15] MEDS: CEFEPIME 1 GM in NA CHLORIDE 0.9% 100 ML IV SCH (21:22)
[2021-12-15] MEDS: INSULIN GLARGINE 100 UNIT/ML SQ SCH (21:22)
[2021-12-15] MEDS: ROSUVASTATIN 10 MG TAB PO SCH (21:30)
[2021-12-16] MEDS: D5.45NS W/KCL 20MEQ 1,000 ML IV SCH ×3 (04:39→14:39)
[2021-12-16 06:26] LABS: Absolute Lymphocytes (CBC) 1.9 K/uL (0.7-4.9); Hematocrit 35.8 % (39.6-49.0); Lymphocytes % 23.3 % (15.3-44.8); MCV 79.3 fL (80-100); MPV 8.3 fL (7.6-11.3); RBC Red Blood Cell Count 4.51 M/uL (4.33-5.43)
[2021-12-16 06:50] LABS: Albumin 2.4 g/dL (3.4-5.0); Bilirubin Total 0.6 mg/dL (0.2-1.0); Potassium 3.6 mmol/L (3.5-5.1); Protein, Total 7.4 g/dL (6.4-8.2)
[2021-12-16] MEDS: METOPROLOL TAR 50 MG TAB PO SCH ×2 (09:08→23:03)
[2021-12-16] MEDS: CEFEPIME 1 GM in NA CHLORIDE 0.9% 100 ML IV SCH ×2 (09:08→21:00)
[2021-12-16] MEDS: lisinopriL 20 MG TAB PO SCH (09:09)
[2021-12-16] MEDS: INSULIN -REGULAR HUMAN 50 UNIT/0.5 ML ML SQ SCH ×4 (09:09→23:04)
[2021-12-16] MEDS: VANCOMYCIN 1.75 GM in NA CHLORIDE 0.9% 500 ML IVPB SCH ×2 (12:07→23:06)
[2021-12-16] MEDS: ACETAMINOPHEN 500 MG TAB PO PRN (12:08)
--- NOTE | 2021-12-16 20:06 | P.PN ---
Subjective Date of Service: 12/16/21 Chief Complaint: RLE cellulitis No acute events overnight. His erythema and pain have improved significantly with the IV antibiotics. Review of Systems 10-point ROS is otherwise unremarkable Integumentary: Other (erythema, swelling, tenderness of RLE) Physical Examination - Vital Signs Temperature: 97.3 F Blood Pressure: 160/79 Pulse: 63 Respirations: 18 Pulse Ox (%): 97 Assessment And Plan - Plan - Physical Exam General: Alert, In no apparent distress, Oriented x3 HEENT: Atraumatic, PERRLA, Mucous membr. moist/pink, EOMI, Sclerae nonicteric Neck: Supple, JVD not distended Respiratory: Clear to auscultation bilaterally, Normal air movement Cardiovascular: Regular rate/rhythm, Normal S1 S2, No gallops, No rubs, No murmurs, Edema (1+ RLE) Gastrointestinal: Normal bowel sounds, Soft and benign, Non-distended, No tenderness, No rebound, No guarding Musculoskeletal: No clubbing, Swelling (RLE), Erythema (RLE), Tenderness (RLE) Integumentary: No rashes Neurological: Normal speech, Cranial nerves 3-12 intact, Normal affect Assessment And Plan - Plan # Right Lower Extremity Non-Purulent Cellulitis - Failed Outpatient Treatment # Suspected Peripheral Artery Disease - Does not currently meet SIRS criteria - General Surgery consulted and spoke with Dr. Robert - recommendations appreciated - Right foot x-ray = "No radiographic finding to indicate osteomyelitis. No soft tissue gas." - CT RLE = "No abscess or drainable fluid collection. Lower leg subcutaneous fatty edema is seen as detailed. No air or foreign body seen." - RLE Doppler = "Monophasic waveforms throughout the right lower extremity arterial system. This would indicate inflow disease/stenosis is likely present." - Continue Vancomycin + Cefepime for now - Aspirin + statin for suspected PAD # Hyperglycemia in Type II Diabetes Mellitus - Hgb A1c > 14.0 % - Correction scale insulin ordered # Paroxysmal Atrial Fibrillation His [id number] = 2 (HTN=1, DM=1) - Previously on rivaroxaban, but stopped by PCP after discussion regarding his low [id number] score - Continue home aspirin, metoprolol # Hypertension - Continue home losartan, metoprolol # Dyslipidemia - Continue home statin - Plan to continue IV antibiotics for an additional day given failed outpatient therapy and reassess tomorrow. Brijesh Solis M.D.
[2021-12-16] MEDS: ROSUVASTATIN 10 MG TAB PO SCH (23:06)
[2021-12-17] MEDS: D5.45NS W/KCL 20MEQ 1,000 ML IV SCH ×2 (00:39→10:39)
[2021-12-17 05:30] VITALS: BMI 41.6
[2021-12-17 06:12] LABS: Absolute Lymphocytes (CBC) 2.4 K/uL (0.7-4.9); Hematocrit 37.4 % (39.6-49.0); Lymphocytes % 28.3 % (15.3-44.8); MCV 79.5 fL (80-100); MPV 8.2 fL (7.6-11.3)
[2021-12-17] MEDS: INSULIN -REGULAR HUMAN 50 UNIT/0.5 ML ML SQ SCH ×4 (07:30→20:56)
[2021-12-17 07:36] LABS: Albumin 2.4 g/dL (3.4-5.0); Bilirubin Total 0.5 mg/dL (0.2-1.0); Potassium 4.3 mmol/L (3.5-5.1); Protein, Total 7.4 g/dL (6.4-8.2)
[2021-12-17] MEDS: METOPROLOL TAR 50 MG TAB PO SCH ×2 (09:00→18:15)
[2021-12-17] MEDS: lisinopriL 20 MG TAB PO SCH (09:00)
[2021-12-17] MEDS: CEFEPIME 1 GM in NA CHLORIDE 0.9% 100 ML IV SCH ×2 (10:02→20:57)
[2021-12-17] MEDS: VANCOMYCIN 1.75 GM in NA CHLORIDE 0.9% 500 ML IVPB SCH ×2 (10:37→22:15)
[2021-12-17] MEDS ORDERED: HYDRALAZINE HCL 20 MG/ML VIAL IV ONE (12:15)
[2021-12-17] MEDS ORDERED: NA CHLORIDE 0.9% 1,000 ML ONE (13:13)
[2021-12-17] MEDS ORDERED: LIDOCAINE 2% MPF 5 ML VIAL ONE (14:29)
[2021-12-17] MEDS ORDERED: FENTANYL CITR 100 MCG/2 ML ONE (14:29)
[2021-12-17] MEDS ORDERED: propofoL 200 MG/20 ML VIAL IV ONE (14:29)
[2021-12-17] MEDS ORDERED: MIDAZOLAM HCL 2 MG/2 ML INJ ONE ×2 (14:29→14:30)
[2021-12-17] MEDS ORDERED: ONDANSETRON 4 MG/2 ML VIAL ONE (14:30)
[2021-12-17] MEDS ORDERED: BUPIVACAINE 0.25% PF 10 ML VIAL ONE ×2 (14:34→15:06)
[2021-12-17] MEDS ORDERED: SODIUM HYPOCHLORITE 0.25% 473 ML ONE (14:34)
[2021-12-17] MEDS ORDERED: BUPIVACAINE 0.25% PF 10 ML VIAL IJ ONE ×2 (15:00)
--- NOTE | 2021-12-17 15:08 | P.OP ---
Preoperative diagnosis: Right Mid Tibial Abscess Postoperative diagnosis: Right Mid Tibial Abscess Primary procedure: Incision and Drainage of Right Mid Tibial Abscess Anesthesia: GETA + Local Estimated blood loss: <5cc Specimen: cultures, debridement tissue Findings: ~ 1.5cm x 1 cm Debridement tissue Complications: None Transferred to: Recovery Room Condition: Good
[2021-12-17] MEDS ORDERED: MORPHINE 2 MG/ML SYR IV PRN (15:13)
[2021-12-17] MEDS ORDERED: HYDROMORPHONE HCL 1 MG/ML INJ ONE (15:49)
--- NOTE | 2021-12-17 16:59 | P.PN ---
Subjective Date of Service: 12/17/21 Chief Complaint: RLE cellulitis No acute events overnight. His leg appears much improved. He reports improvement in his pain. He is eager for I&D later today. Review of Systems 10-point ROS is otherwise unremarkable Musculoskeletal: Leg Pain (RLE) Integumentary: Other (RLE cellulitis) Physical Examination - Vital Signs Temperature: 97.6 F Blood Pressure: 165/77 Pulse: 67 Respirations: 16 Pulse Ox (%): 98 Assessment And Plan - Plan - Physical Exam General: Alert, In no apparent distress, Oriented x3 HEENT: Atraumatic, PERRLA, Mucous membr. moist/pink, EOMI, Sclerae nonicteric Neck: Supple, JVD not distended Respiratory: Clear to auscultation bilaterally, Normal air movement Cardiovascular: Regular rate/rhythm, Normal S1 S2, No gallops, No rubs, No murmurs, Edema (1+ RLE) Gastrointestinal: Normal bowel sounds, Soft and benign, Non-distended, No tenderness, No rebound, No guarding Musculoskeletal: No clubbing, Swelling (RLE), Erythema (RLE), Tenderness (RLE), potential formation of abscess on mid-right tibia Integumentary: No rashes Neurological: Normal speech, Cranial nerves 3-12 intact, Normal affect Assessment And Plan - Plan # Right Lower Extremity Purulent Cellulitis - Failed Outpatient Treatment # Suspected Peripheral Artery Disease - Does not currently meet SIRS criteria - General Surgery consulted and spoke with Dr. Robert - recommendations appreciated - Plans for OR today for possible I&D of potential abscess on RLE - Right foot x-ray = "No radiographic finding to indicate osteomyelitis. No soft tissue gas." - CT RLE = "No abscess or drainable fluid collection. Lower leg subcutaneous fatty edema is seen as detailed. No air or foreign body seen." - RLE Doppler = "Monophasic waveforms throughout the right lower extremity arterial system. This would indicate inflow disease/stenosis is likely present." - Continue Vancomycin + Cefepime for now - Aspirin + statin for suspected PAD # Hyperglycemia in Type II Diabetes Mellitus - Hgb A1c > 14.0 % - Correction scale insulin ordered # Paroxysmal Atrial Fibrillation His [id number] = 2 (HTN=1, DM=1) - Previously on rivaroxaban, but stopped by PCP after discussion regarding his low [id number] score - Continue home aspirin, metoprolol # Hypertension - Continue home losartan, metoprolol # Dyslipidemia - Continue home statin Brijesh Solis M.D.
[2021-12-17] MEDS: ACETAMINOPHEN 500 MG TAB PO PRN (17:33)
[2021-12-17] MEDS ORDERED: METOPROLOL TARTRATE 5 MG/5 ML INJ IV STA (18:51)
[2021-12-17] MEDS: ROSUVASTATIN 10 MG TAB PO SCH (21:00)
[2021-12-17] MEDS: HYDROCODONE/APAP 5/325 MG TAB PO PRN (22:15)
--- NOTE | 2021-12-18 00:04 | OP ---
Date of Procedure: 12/17/2021 Surgeon: Gorge Robert MD, Preoperative Diagnosis: Right mid tibial abscess. Postoperative Diagnosis: Right mid tibial abscess. Procedure Performed: Incision and drainage and debridement of right mid tibial abscess. Anesthesia: General endotracheal plus local. Estimated Blood Loss: Less than 5 cc. Specimen: Cultures and debridement tissue sent. Findings: Approximately 1.5 cm x 1 cm debrided tissue. Complications: None. Disposition: The patient was transferred to the recovery room in good condition. Procedure In Detail: After informed consent was obtained, the patient was brought to the operating r oom and prepped and draped in the usual sterile fashion. After adequate anesthesia was achieved, the area of the mid right tibia was anesthetized with 0.25% Marcaine. An elliptical incision was taken down through an area of obvious emanating abscess material. This was cultured for both aerobic and a naerobic speciation at this point. The abscess cavity was removed in its entirety using sharp dissec tion circumferentially until the tissue was removed, sent off for pathologic examination. The area w as copiously irrigated. Hemostasis was achieved with electrocautery. The wound was then packed with quarter-inch plain packing soaked in Dakin solution damp to dry and sterile dressing placed over top . The patient tolerated the procedure without evidence of complication, transferred in good condition. All counts were correct at the end of the case. SIM/NIKKY Voice ID: [id number] Report ID: [id number]
[2021-12-18] MEDS: D5.45NS W/KCL 20MEQ 1,000 ML IV SCH ×2 (01:54→16:39)
[2021-12-18] MEDS: HYDROCODONE/APAP 5/325 MG TAB PO PRN ×3 (06:29→20:53)
[2021-12-18] MEDS: INSULIN -REGULAR HUMAN 50 UNIT/0.5 ML ML SQ SCH ×4 (07:30→21:09)
[2021-12-18] MEDS: lisinopriL 20 MG TAB PO SCH (09:00)
[2021-12-18] MEDS: METOPROLOL TAR 50 MG TAB PO SCH ×2 (09:01→20:54)
[2021-12-18] MEDS: CEFEPIME 1 GM in NA CHLORIDE 0.9% 100 ML IV SCH ×2 (09:04→20:52)
[2021-12-18] MEDS: ENOXAPARIN 40 MG/0.4 ML SQ SCH (09:05)
[2021-12-18] MEDS: VANCOMYCIN 1.75 GM in NA CHLORIDE 0.9% 500 ML IVPB SCH ×2 (10:31→22:18)
--- NOTE | 2021-12-18 18:26 | P.PN ---
Subjective Date of Service: 12/18/21 Chief Complaint: RLE cellulitis No acute events overnight. He is post-op day #1 from incision and drainage of right mid-tibial abscess. He reports that his pain is well-controlled. He has been in-and-out of atrial fibrillation since his surgery. Review of Systems 10-point ROS is otherwise unremarkable Musculoskeletal: Leg Pain (RLE - improved) Integumentary: Other (RLE cellulitis) Physical Examination - Vital Signs Temperature: 97.5 F Blood Pressure: 127/56 Pulse: 107 Respirations: 18 Pulse Ox (%): 97 Assessment And Plan - Plan - Physical Exam General: Alert, In no apparent distress, Oriented x3 HEENT: Atraumatic, PERRLA, Mucous membr. moist/pink, EOMI, Sclerae nonicteric Neck: Supple, JVD not distended Respiratory: Clear to auscultation bilaterally, Normal air movement Cardiovascular: Regular rate/rhythm, Normal S1 S2, No gallops, No rubs, No murmurs, Edema (1+ RLE) Gastrointestinal: Normal bowel sounds, Soft and benign, Non-distended, No tenderness, No rebound, No guarding Musculoskeletal: No clubbing, RLE is wrapped in surgical dressing Integumentary: No rashes Neurological: Normal speech, Cranial nerves 3-12 intact, Normal affect Assessment And Plan - Plan # Right Lower Extremity Purulent Cellulitis - Failed Outpatient Treatment # Suspected Peripheral Artery Disease - Does not currently meet SIRS criteria - General Surgery consulted and spoke with Dr. Robert - recommendations appreciated - Plans for OR today for possible I&D of potential abscess on RLE - Right foot x-ray = "No radiographic finding to indicate osteomyelitis. No soft tissue gas." - CT RLE = "No abscess or drainable fluid collection. Lower leg subcutaneous fatty edema is seen as detailed. No air or foreign body seen." - RLE Doppler = "Monophasic waveforms throughout the right lower extremity arterial system. This would indicate inflow disease/stenosis is likely present." - Continue Vancomycin + Cefepime for now - Aspirin + statin for suspected PAD # Paroxysmal Atrial Fibrillation His [id number] = 2 (HTN=1, DM=1) - Previously on rivaroxaban, but stopped by PCP after discussion regarding his low [id number] score - Continue home aspirin, metoprolol - Intermittently in atrial fibrillation with RVR - treating with PRN metoprolol - Will monitor in the hospital for today # Hyperglycemia in Type II Diabetes Mellitus - Hgb A1c > 14.0 % - Correction scale insulin ordered # Hypertension - Continue home losartan, metoprolol # Dyslipidemia - Continue home statin Brijesh Solis M.D.
[2021-12-18] MEDS ORDERED: NA CHLORIDE 0.9% 100 ML ONE (20:27)
[2021-12-18] MEDS ORDERED: CEFEPIME 1 GM/VIAL ONE (20:38)
[2021-12-18] MEDS: ROSUVASTATIN 10 MG TAB PO SCH (20:54)
[2021-12-18] MEDS: INSULIN GLARGINE 100 UNIT/ML SQ SCH (21:08)
[2021-12-19] MEDS: D5.45NS W/KCL 20MEQ 1,000 ML IV SCH (01:03)
[2021-12-19] MEDS: HYDROCODONE/APAP 5/325 MG TAB PO PRN (02:44)
--- NOTE | 2021-12-19 08:13 | P.DS ---
Admission Date: 12/14/21 Discharge Date: 12/19/21 Disposition: ROUTINE DISCHARGE Discharge Condition: GOOD Reason for Admission: RLE cellulitis Consultations: 1. General Surgery Procedures: - 12/17/2021: Incision and Drainage of Right Mid-Tibial Abscess Hospital Course: DIAGNOSES: # Right Lower Extremity Purulent Cellulitis (Gram-Positive Cocci in Pairs and Chains) - Failed Outpatient Treatment # Suspected Peripheral Artery Disease # Paroxysmal Atrial Fibrillation # Hyperglycemia in Type II Diabetes Mellitus # Hypertension # Dyslipidemia HOSPITAL COURSE: Mr. Jose E Yañez is a pleasant 61 year old male with a past medical history significant for paroxysmal atrial fibrillation, type II diabetes mellitus, peripheral artery disease, hypertension, and dyslipidemia who was admitted to the [facility] on 12/14/2021 for failed outpatient treatment. He was admitted to the Medicine service. He was given PO antibiotics as an outpatient, without improvement in his symptoms. Upon admission, he was started on IV antibiotics and General Surgery was consulted. He was evaluated by Dr. Robert and underwent an incision and drainage of a mid-tibial abscess. The procedure went well without any complications. However, later that day, he went into atrial fibrillation likely due to his metoprolol being on hold. IV metoprolol was given and he was restarted on his PO metoprolol. He was monitored for 24 hours without recurrence of his atrial fibrillation. During his evaluation, he was incidentally found to have peripheral artery disease. Dr. Robert will follow this up in his clinic. On 12/19/2021, he was seen on morning rounds and deemed medically stable for discharge. He was discharged with instructions to schedule follow-up appointments with his PCP in 3-5 days, with Cardiology (Dr. Lanier) in 3-5 days, and with General Surgery (Dr. Robert) in 1-2 weeks. He was provided prescriptions for cephalexin and doxcycline. SMX-TMP was not given due to allergy. He was given the opportunity to ask questions and reported no further questions. Furthermore, all questions were answered to the best of my ability. Today, I personally spent 20 minutes on his case, of which greater than 50% of the time was spent in patient education, counseling, and coordination of care as described above. PHYSICAL EXAM: General: Alert, In no apparent distress, Oriented x3 HEENT: Atraumatic, PERRLA, Mucous membr. moist/pink, EOMI, Sclerae nonicteric Neck: Supple, JVD not distended Respiratory: Clear to auscultation bilaterally, Normal air movement Cardiovascular: Regular rate/rhythm, Normal S1 S2, No gallops, No rubs, No murmurs, Edema (trace RLE) Gastrointestinal: Normal bowel sounds, Soft and benign, Non-distended, No tenderness, No rebound, No guarding Musculoskeletal: No clubbing, RLE is with minimal erythema and warmth. Surgical site is packed. It is clean, dry, and intact Integumentary: No rashes Neurological: Normal speech, Cranial nerves 3-12 intact, Normal affect Vital Signs/Physical Exam: Temp Pulse Resp BP Pulse Ox 96.9 F 74 18 160/69 H 96 12/19/21 04:00 12/19/21 04:00 12/19/21 04:00 12/19/21 04:00 12/19/21 04:00 Laboratory Data at Discharge: WBC 8.30 K/uL (4.3-10.9) 12/17/21 05:22 Hgb 12.2 g/dL (13.6-17.9) L 12/17/21 05:22 Hct 37.4 % (39.6-49.0) L 12/17/21 05:22 Plt Count 382 K/uL (152-406) 12/17/21 05:22 PT 12.6 SECONDS (9.5-12.5) H 12/14/21 18:19 INR 1.14 12/14/21 18:19 APTT 36.0 SECONDS (24.3-36.9) 12/14/21 18:19 Sodium 138 mmol/L (136-145) 12/17/21 07:02 Potassium 4.3 mmol/L (3.5-5.1) D 12/17/21 07:02 BUN 6 mg/dL (7-18) L 12/17/21 07:02 Creatinine 0.64 mg/dL (0.55-1.3) 12/17/21 07:02 Glucose 311 mg/dL (74-106) H 12/17/21 07:02 Magnesium 2.0 mg/dL (1.8-2.4) 12/14/21 18:19 Total Bilirubin 0.5 mg/dL (0.2-1.0) 12/17/21 07:02 AST 16 U/L (15-37) 12/17/21 07:02 ALT 18 U/L (12-78) 12/17/21 07:02 Alkaline Phosphatase 136 U/L (45-117) H 12/17/21 07:02 Home Medications: RX: Rosuvastatin Calcium 5 mg PO BEDTIME 10/07/19 RX: Cetirizine HCl 1 tab PO DAILY 12/14/21 RX: Insulin Aspart [Novolog Flexpen] 100 units SQ SEECOM 12/14/21 RX: Insulin Glargine,Hum.rec.anlog [Lantus] 5 units SQ SEECOM 12/14/21 RX: Linagliptin/Metformin HCl [Jentadueto 2.5 mg-1000 mg Tab] 1 tab PO BID 12/14/21 RX: lisinopriL [Lisinopril] 1 tab PO DAILY 12/14/21 RX: Metoprolol Tartrate [Lopressor] 100 mg PO BID 12/15/21 RX: Cephalexin 500 mg PO BID 7 Days #14 tab 12/19/21 RX: Doxycycline Hyclate 100 mg PO BID 7 Days #14 tab 12/19/21 New Medications: RX: Cephalexin 500 mg PO BID 7 Days #14 tab RX: Doxycycline Hyclate 100 mg PO BID 7 Days #14 tab Physician Discharge Instructions: 1. Please schedule a follow-up appointment with your PCP (Dr. Ricardo) in 3-5 days 2. Please schedule a follow-up appointment with General Surgery (Dr. Robert) in 5-7 days 3. Please schedule a follow-up appointment with Cardiology (Dr. Lanier) in 5-7 days Diet: ADA Activity: Ad cali Followup: Jac Lanier MD [ACTIVE - CAN ADMIT] - (Call to schedule appointment. ) Jorge Blackman MD [Primary Care Provider] - (Call to schedule appointment. ) Gorge Robert MD [ACTIVE - CAN ADMIT] - (Call to schedule appointment.)
[2021-12-19] MEDS: lisinopriL 20 MG TAB PO SCH (08:54)
[2021-12-19] MEDS: CEFEPIME 1 GM in NA CHLORIDE 0.9% 100 ML IV SCH (08:54)
[2021-12-19] MEDS: ENOXAPARIN 40 MG/0.4 ML SQ SCH (08:54)
[2021-12-19] MEDS: METOPROLOL TAR 50 MG TAB PO SCH (08:54)
[2021-12-19] MEDS: INSULIN -REGULAR HUMAN 50 UNIT/0.5 ML ML SQ SCH (08:55)
[2021-12-19] MEDS ORDERED: SODIUM HYPOCHLORITE 0.25% 473 ML TOP SCH (09:00)
[2021-12-19 09:45] VITALS: BP 163/69; TEMP 97
[2021-12-19 10:24] VITALS: O2SAT 97
--- NOTE | 2021-12-19 15:58 | EKG ---
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
== END 2021-12-19 13:00 | disposition home health service (06) | DRG 572 ==
LOC: ER 15:31 → 4TH 20:42
PROVIDERS: ADMIT Internal Medicine; ATTEND Internal Medicine
PROC: 0JBN0ZZ Excision of Right Lower Leg Subcutaneous Tissue and Fascia, Open Approach (ICD-10-PCS; principal; 2021-12-17 11:15)
DX: L03.115 Cellulitis of right lower limb (principal); E78.5 Hyperlipidemia, unspecified; I10 Essential (primary) hypertension; E11.65 Type 2 diabetes mellitus with hyperglycemia; E11.51 Type 2 diabetes mellitus with diabetic peripheral angiopathy without gangrene; I48.0 Paroxysmal atrial fibrillation; T44.7X5A Adverse effect of beta-adrenoreceptor antagonists, initial encounter; B96.89 Other specified bacterial agents as the cause of diseases classified elsewhere; Z88.1 Allergy status to other antibiotic agents; Z79.4 Long term (current) use of insulin; Z79.01 Long term (current) use of anticoagulants; Z79.84 Long term (current) use of oral hypoglycemic drugs; Z79.82 Long term (current) use of aspirin; Z79.899 Other long term (current) drug therapy; Z20.822 Contact with and (suspected) exposure to COVID-19
CPT/HCPCS: 36415; 71045; 73701; 80048; 80053; 80202; 81001; 82947; 83036; 83605; 83735; 84145; 85025; 85610; 85730; 87040; 87070; 87075; 87205; 87811; 88304; 93005; 93926; 93971; 96365; 96366; 99285; J0360; J0692; J1170; J1650; J1815; J2001; J2250; J2270; J2405; J2704; J3010; J3370; J7030; J7040; J7050; Q9967

== ENCOUNTER 2021-12-22 12:49 | Inpatient (IN) | payer BC ==
--- OUTSIDE RECORDS SUMMARY | 2021-12-22 13:02 | XMS REPORT | Continuity of Care Document ---
:1960 Author Organization [facility] t Address [address] [place] [address] Care Team Providers Name Role Phone Gardenia LYONS MD, Christophe Guthrie Primary Care Physician [phone] Debbie Carlton MD Attending Clinician DEBBIE CARLTON [...] rs active active ity of problems problems [facility] Allergies, Adverse Reactions, Alerts Allergy Allergy Status Severity Reaction(s) Onset Inactive Treating Comm ents Source Name Type Date Date Clinician Sulfa Propensi Active 2015-04 [facility] (Sulfona ty to 04-23 mide adverse 00:00: Hospita Antibiot reaction 00 l ics) s to drug SULFA Drug Active Hives Univers (SULFONA Class ity of [facility] ANTIBIOT Medical ICS) Branch Sulfa Propensi Active Hives Univers (Sulfona ty to ity of [facility] adverse [place] Antibiot reaction Medica l ics) s Branch Sulfa Propensi Active Hives Univers (Sulfona ty to ity of [facility] Antibiot reaction Medica l ics) s Branch Family History Family Member Diagnosis Comments Start Date Stop Date Source Natural father Cancer [facility] Natural mother Allergies [facility] Natural mother Hypertension [facility] Social History Social Habit Start Date Stop Date Quantity Comments Source Exposure to Not sure [facility] SARS-CoV-2 [facility] (event) [place] Alcohol intake 2019-01-04 2019-01-04 Current [facility] 00:00:00 00:00:00 non-drinker of alcohol (finding) Tobacco use and 2018-03-15 2018-03-15 Smokeless tobacco Un iversity of exposure 00:00:00 00:00:00 non-user [facility] Sex Ass[birth year] [facility] 00:00:00 00:00:00 Smoking Status Start Date Stop Date Source Never smoked tobacco [facility] Medications Ordered Filled Start Stop Current Ordering Indication Dosage Frequency Signature Comments Components Source Medication Medication Date Date Medication? Clinician (SIG) Name Name TAMSULOSIN Yes [id number] .4mg TAKE 1 Univers 0.4 mg 24 7-19 CAPSULE BY ity of hr capsule 00:00: MOUTH AT [place] 00 BEDTIME [facility] TAMSULOSIN Yes [id number] .4mg TAKE 1 Univers 0.4 mg 24 6-14 CAPSULE BY ity of hr capsule 00:00: MOUTH AT [place] 00 BEDTIME Medical Branch TAMSULOSIN 0 2021- No [id number] .4mg TAKE 1 Univers 0.4 mg 24 6-14 07-19 CAPSULE BY ity of hr capsule 00:00[place] BED[place] Medical Branch tamsulosin 0 Yes [id number] .4mg Take 1 Univers 0.4 mg 24 5-10 capsule by ity of hr capsule 00:00: mouth at [place] 00 bedtime. Medical Branch tamsulosin Yes [id number] .4mg Take 1 Univers 0.4 mg 24 5-10 capsule by ity of hr capsule 00:00: mouth at [place] 00 bedtime. Medical Branch tamsulosin 2021- No [id number] .4mg Take 1 Univers 0.4 mg 24 5-10 06-14 capsule by ity of hr capsule 00:00[place]00 [place] bedtime. Medical Branch tamsulosin Yes [id number] .4mg Take 1 Univers 0.4 mg 24 3-02 capsule by ity of hr capsule 00:00: mouth at [place] 00 bedtime. Medical Branch tamsulosin Yes [id number] .4mg Take 1 Univers 0.4 mg 24 3-02 capsule by ity of hr capsule 00:00: mouth at [place] 00 bedtime. Medical Branch tamsulosin 2021- No [id number] .4mg Take 1 Univers 0.4 mg 24 3-02 05-10 capsule by ity of hr capsule 00:00: [place]:00 [place] bedtime. Medical Branch cetirizine Yes cetirizine U nivers 10 mg 3-01 10 mg ity of tablet 08:22: tablet [place] [address] Medical Branch cefdinir Yes cefdinir Unive rs 300 mg 3-01 300 mg ity of capsule 08:22: capsule [place] [address] Medical Branch cetirizine Yes cetirizine U nivers 10 mg 3-01 10 mg ity of tablet 08:22: tablet [address] cefdinir Yes cefdinir Unive rs 300 mg 3-01 300 mg ity of capsule 08:22: capsule [address] cetirizine Yes cetirizine U nivers 10 mg 3-01 10 mg ity of tablet 08:22: tablet [address] cefdinir Yes cefdinir Unive rs 300 mg 3-01 300 mg ity of capsule 08:22: capsule [address] cetirizine Yes cetirizine U nivers 10 mg 3-01 10 mg ity of tablet 08:22: tablet [address] cefdinir Yes cefdinir Unive rs 300 mg 3-01 300 mg ity of capsule 08:22: capsule [address] cetirizine Yes cetirizine U nivers 10 mg 3-01 10 mg ity of tablet 08:22: tablet [address] cefdinir Yes cefdinir Unive rs 300 mg 3-01 300 mg ity of capsule 08:22: capsule [address] cetirizine Yes cetirizine U nivers 10 mg 3-01 10 mg ity of tablet 08:22: tablet [address] cefdinir Yes cefdinir Unive rs 300 mg 3-01 300 mg ity of capsule 08:22: capsule [address] cetirizine Yes cetirizine U nivers 10 mg 3-01 10 mg ity of tablet 08:22: tablet [address] cefdinir Yes cefdinir Unive rs 300 mg 3-01 300 mg ity of capsule 08:22: capsule [address] cetirizine Yes cetirizine U nivers 10 mg 3-01 10 mg ity of tablet 08:22: tablet [address] cefdinir 0 Yes cefdinir Unive rs 300 mg 3-01 300 mg ity of capsule 08:22: capsule [address] montelukast Yes montelukas Univers 10 mg 3-01 t 10 mg ity of tablet 08:22: tablet [place] 38 Medical Branch Mometasone- Yes Dulera 200 Univers Formoterol 3-01 mcg-5 ity of 200-5 08:22: mcg/actuat [place] mcg/actuati 38 ion HFA Medic al on inhaler aerosol Branch inhaler insulin Yes Novolog Univers aspart - Flexpen ity of U-100 08:22: U-100 [place] (NOVOLOG 38 Insulin Medical FLEXPEN aspart 100 Branch U-100 unit/mL (3 INSULIN) mL) 100 unit/mL subcutaneo (3 mL) injection enalapril Yes enalapril Uni vers 20 mg 06-01 maleate 20 ity of tablet 08:22: mg tablet [address] empaglifloz Yes Jardiance U nivers in 06-01 25 mg ity of ([place]) 08:22: [place] [address] Branch zolpidem 5 Yes zolpidem 5 U nivers mg tablet 06-01 mg tablet ity o f 08:22: [address] SITagliptin Yes Janumet XR Univers -metformin 06-01 50 ity of (JANUMET 08:22: mg-1,000 [place] XR) 38 mg Medical 50-1,000 mg tablet,ext Br anch per tablet ended release pregabalin Yes Lyrica 75 Un marisol (LYRICA) 75 - mg capsule it y of mg capsule 08:22: [address] omeprazole Yes omeprazole U nivers 20 mg 06-01 20 mg ity of capsule 08:22: capsule,de [place] 38 layed Medical release Branch montelukast Yes montelukas Univers 10 mg 3- t 10 mg ity of tablet 08:22: tablet [address] Mometasone- Yes Dulera 200 Univers Formoterol 3-01 mcg-5 ity of 200-5 08:22: mcg/actuat [place] mcg/actuati 38 ion HFA Medic al on inhaler aerosol Branch inhaler insulin Yes Novolog Univers aspart - Flexpen ity of U-100 08:22: U-100 [place] (NOVOLOG 38 Insulin Medical FLEXPEN aspart 100 Branch U-100 unit/mL (3 INSULIN) mL) 100 unit/mL subcutaneo (3 mL) injection enalapril Yes enalapril Uni vers 20 mg - maleate 20 ity of tablet 08:22: mg tablet [address] empaglifloz Yes Jardiance U nivers in 06-01 25 mg ity of ([place]) 08:22: [place] [address] Branch zolpidem 5 Yes zolpidem 5 U nivers mg tablet 3- mg tablet ity o f 08:22: [address] SITagliptin Yes Janumet XR Univers -metformin 06-01 50 ity of (JANUMET 08:22: mg-1,000 [place] XR) 38 mg Medical 50-1,000 mg tablet,ext Br anch per tablet ended release pregabalin Yes Lyrica 75 Un marisol (LYRICA) 75 06-01 mg capsule it y of mg capsule 08:22: [address] omeprazole Yes omeprazole U nivers 20 mg 06-01 20 mg ity of capsule 08:22: capsule,de [place] 38 layed Medical release Branch montelukast Yes montelukas Univers 10 mg - t 10 mg ity of tablet 08:22: tablet [address] Mometasone- Yes Dulera 200 Univers Formoterol - mcg-5 ity of 200-5 08:22: mcg/actuat [place] mcg/actuati ion HFA Medic al on inhaler aerosol Branch inhaler insulin Yes Novolog Univers aspart 06-01 Flexpen ity of U-100 08:22: U-100 [place] (NOVOLOG 38 Insulin Medical FLEXPEN aspart 100 Branch U-100 unit/mL (3 INSULIN) mL) 100 unit/mL subcutaneo (3 mL) injection enalapril Yes enalapril Uni vers 20 mg - maleate 20 ity of tablet 08:22: mg tablet [address] empaglifloz Yes Jardiance U nivers in 06-01 25 mg ity of ([place]ANCE) 08:22: [place] 25 mg Tab Medical Branch zolpidem 5 Yes zolpidem 5 U nivers mg tablet 3-01 mg tablet ity o f 08:22: [address] SITagliptin Yes Janumet XR Univers -metformin 06-01 50 ity of (JANUMET 08:22: mg-1,000 [place] XR) 38 mg Medical 50-1,000 mg tablet,ext Br anch per tablet ended release pregabalin Yes Lyrica 75 Un marisol (LYRICA) 75 3- mg capsule it y of mg capsule 08:22: [address] Branch omeprazole Yes omeprazole U nivers 20 mg 06-01 20 mg ity of capsule 08:22: capsule,de [place] 38 layed Medical release Branch montelukast Yes montelukas Univers 10 mg 06-01 t 10 mg ity of tablet 08:22: tablet [address] Mometasone- Yes Dulera 200 Univers Formoterol 06-01 mcg-5 ity of 200-5 08:22: mcg/actuat [place] mcg/actuati ion HFA Medic al on inhaler aerosol Branch inhaler insulin Yes Novolog Univers aspart 06-01 Flexpen ity of U-100 08:22: U-100 [place] (NOVOLOG 38 Insulin Medical FLEXPEN aspart 100 Branch U-100 unit/mL (3 INSULIN) mL) 100 unit/mL subcutaneo (3 mL) us injection enalapril Yes enalapril Uni vers 20 mg 06-01 maleate 20 ity of tablet 08:22: mg tablet [address] empaglifloz Yes Jardiance U nivers in 06-01 25 mg ity of ([place]ANCE) 08:22: [place] 25 mg Tab Medical Branch zolpidem 5 Yes zolpidem 5 U nivers mg tablet 3-01 mg tablet ity o f 08:22: [address] SITagliptin Yes Janumet XR Univers -metformin 06-01 50 ity of (JANUMET 08:22: mg-1,000 [place] XR) 38 mg Medical 50-1,000 mg tablet,ext Br anch per tablet ended release pregabalin Yes Lyrica 75 Un marisol (LYRICA) 75 3-01 mg capsule it y of mg capsule 08:22: [address] omeprazole Yes omeprazole U nivers 20 mg 3- 20 mg ity of capsule 08:22: capsule,de [place] 38 [facility] montelukast Yes montelukas Univers 10 mg - t 10 mg ity of tablet 08:22: tablet [address] Mometasone- Yes Dulera 200 Univers Formoterol - mcg-5 ity of 200-5 08:22: mcg/actuat [place] mcg/actuati ion HFA Medic al on inhaler aerosol [place] inhaler insulin Yes Novolog Univers aspart 06-01 Flexpen ity of U-100 08:22: U-100 [place] (NOVOLOG Insulin Medical FLEXPEN aspart 100 Branch U-100 unit/mL (3 INSULIN) mL) 100 unit/mL subcutaneo (3 mL) injection enalapril Yes enalapril Uni vers 20 mg 06-01 maleate 20 ity of tablet 08:22: mg tablet [address] empaglifloz Yes Jardiance U nivers in 06-01 25 mg ity of (JARDIANCE) 08:22: [place] [address] zolpidem 5 Yes zolpidem 5 U nivers mg tablet 3- mg tablet ity o f 08:22: [address] SITagliptin Yes Janumet XR Univers -metformin 3- 50 ity of (JANUMET 08:22: mg-1,000 [place] XR) 38 mg Medical 50-1,000 mg tablet,ext Br anch per tablet ended release pregabalin Yes Lyrica 75 Un marisol (LYRICA) 75 3-01 mg capsule it y of mg capsule 08:22: [address] omeprazole Yes omeprazole U nivers 20 mg - 20 mg ity of capsule 08:22: capsule,de [place] 38 [facility] montelukast Yes montelukas Univers 10 mg 3- t 10 mg ity of tablet 08:22: tablet [address] Mometasone- Yes Dulera 200 Univers Formoterol 3-01 mcg-5 ity of 200-5 08:22: mcg/actuat [place] mcg/actuati 38 ion HFA Medic al on inhaler aerosol Branch inhaler insulin Yes Novolog Univers aspart - Flexpen ity of U-100 08:22: U-100 [place] (NOVOLOG Insulin Medical FLEXPEN aspart 100 Branch U-100 unit/mL (3 INSULIN) mL) 100 unit/mL subcutaneo (3 mL) us injection enalapril Yes enalapril Uni vers 20 mg - maleate 20 ity of tablet 08:22: mg tablet [address] empaglifloz Yes Jardiance U nivers in 06-01 25 mg ity of (J[place]ANCE) 08:22: [place] [address] zolpidem 5 Yes zolpidem 5 U nivers mg tablet - mg tablet ity o f 08:22: [address] SITagliptin Yes Janumet XR Univers -metformin 06-01 50 ity of (JANUMET 08:22: mg-1,000 [place] XR) 38 mg Medical 50-1,000 mg tablet,ext Br anch per tablet ended release pregabalin Yes Lyrica 75 Un marisol (LYRICA) 75 3- mg capsule it y of mg capsule 08:22: [address] omeprazole Yes omeprazole U nivers 20 mg - 20 mg ity of capsule 08:22: capsule,de [place] 38 layed Medical release Branch montelukast Yes montelukas Univers 10 mg 3-01 t 10 mg ity of tablet 08:22: tablet [address] Mometasone- Yes Dulera 200 Univers Formoterol 3-01 mcg-5 ity of 200-5 08:22: mcg/actuat [place] mcg/actuati 38 ion HFA Medic al on inhaler aerosol Branch inhaler insulin Yes Novolog Univers aspart 3- Flexpen ity of U-100 08:22: U-100 [place] (NOVOLOG 38 Insulin Medical FLEXPEN aspart 100 Branch U-100 unit/mL (3 INSULIN) mL) 100 unit/mL subcutaneo (3 mL) us injection enalapril Yes enalapril Uni vers 20 mg 3- maleate 20 ity of tablet 08:22: mg tablet [address] empaglifloz Yes Jardiance U nivers in 06-01 25 mg ity of ([place]IANCE) 08:22: [place] 25 mg [facility] Medical Branch zolpidem 5 Yes zolpidem 5 U nivers mg tablet 3- mg tablet ity o f 08:22: [address] SITagliptin Yes Janumet XR Univers -metformin 06-01 50 ity of (JANUMET 08:22: mg-1,000 [place] XR) 38 mg Medical 50-1,000 mg tablet,ext Br anch per tablet ended release pregabalin Yes Lyrica 75 Un marisol (LYRICA) 75 3- mg capsule it y of mg capsule 08:22: [address] omeprazole Yes omeprazole U nivers 20 mg - 20 mg ity of capsule 08:22: capsule,de [place] layed Medical release Branch montelukast Yes montelukas Univers 10 mg 3- t 10 mg ity of tablet 08:22: tablet [address] Mometasone- Yes Dulera 200 Univers Formoterol 3- mcg-5 ity of 200-5 08:22: mcg/actuat [place] mcg/actuati ion HFA Medic al on inhaler aerosol Branch inhaler insulin Yes Novolog Univers aspart 3-01 Flexpen ity of U-100 08:22: U-100 [place] (NOVOLOG 38 Insulin Medical FLEXPEN aspart 100 Branch U-100 unit/mL (3 INSULIN) mL) 100 unit/mL subcutaneo (3 mL) us injection enalapril Yes enalapril Uni vers 20 mg 3- maleate 20 ity of tablet 08:22: mg tablet [place] 38 Medical Branch empaglifloz Yes Jardiance U nivers in 3-01 25 mg ity of (JARDIANCE) 08:22: tablet [place] 25 mg [place] 38 Medical Branch zolpidem 5 Yes zolpidem 5 U nivers mg tablet 3-01 mg tablet ity o f 08:22: [place] [address] Medical Branch SITagliptin Yes Janumet XR Univers -metformin 3-01 50 ity of (JANUMET 08:22: mg-1,000 [place] XR) 38 mg Medical 50-1,000 mg tablet,ext Br anch per tablet ended release pregabalin Yes Lyrica 75 Un marisol (LYRICA) 75 3-01 mg capsule it y of mg capsule 08:22: [place] [address] Medical Branch omeprazole Yes omeprazole U nivers 20 mg 3-01 20 mg ity of capsule 08:22: capsule,de [place] 38 layed Medical release Branch cephALEXin Yes TAKE ONE Uni vers 500 mg 2-21 CAPSULE BY ity of capsule 00:00: MOUTH [place] 00 EVERY 8 Medical HOURS FOR Branch 10 DAYS cephALEXin Yes TAKE ONE Uni vers 500 mg 2-21 CAPSULE BY ity of capsule 00:00: MOUTH [place] 00 EVERY 8 Medical HOURS FOR Branch 10 DAYS cephALEXin Yes TAKE ONE Uni vers 500 mg 2-21 CAPSULE BY ity of capsule 00:00: MOUTH [place] 00 EVERY 8 Medical HOURS FOR Branch 10 DAYS cephALEXin Yes TAKE ONE Uni vers 500 mg 2-21 CAPSULE BY ity of capsule 00:00: MOUTH [place] 00 EVERY 8 Medical HOURS FOR Branch 10 DAYS cephALEXin Yes TAKE ONE Uni vers 500 mg 2-21 CAPSULE BY ity of capsule 00:00: MOUTH [place] 00 EVERY 8 Medical HOURS FOR Branch 10 DAYS cephALEXin Yes TAKE ONE Uni vers 500 mg 2-21 CAPSULE BY ity of capsule 00:00: MOUTH [place] 00 EVERY 8 Medical HOURS FOR Branch 10 DAYS cephALEXin Yes TAKE ONE Uni vers 500 mg 2-21 CAPSULE BY ity of capsule 00:00: MOUTH [place] 00 EVERY 8 Medical HOURS FOR Branch 10 DAYS cephALEXin Yes TAKE ONE Uni vers 500 [...] by ity of 100 mg 00:00: mouth. [place] tablet [facility] metoprolol 2020-04 Yes 100mg Take 100 Un marisol tartrate 2-13 mg by ity of 100 mg 00:00: mouth. [place] tablet [facility] metoprolol 2020-04 Yes 100mg Take 100 Un marisol tartrate 2-13 mg by ity of 100 mg 00:00: mouth. [place] tablet [facility] leflunomide 2020-04 Yes 20mg Take 20 mg Univers 20 mg 2-09 by mouth ity of tablet 00:00: daily. [place] [facility] leflunomide 2020-04 Yes 20mg Take 20 mg Univers 20 mg 2-09 by mouth ity of tablet 00:00: daily. [place] [facility] leflunomide 2020-04 Yes 20mg Take 20 mg Univers 20 mg 2-09 by mouth ity of tablet 00:00: daily. [place] [facility] leflunomide 2020-04 Yes 20mg Take 20 mg Univers 20 mg 2-09 by mouth ity of tablet 00:00: daily. [place] [facility] leflunomide 2020-04 Yes 20mg Take 20 mg Univers 20 mg 2-09 by mouth ity of tablet 00:00: daily. [place] [facility] leflunomide 2020-04 Yes 20mg Take 20 mg Univers 20 mg 2-09 by mouth ity of tablet 00:00: daily. [place] [facility] leflunomide 2020-04 Yes 20mg Take 20 mg Univers 20 mg 2-09 by mouth ity of tablet 00:00: daily. [place] [facility] leflunomide 2020-04 Yes 20mg Take 20 mg Univers 20 mg 2-09 by mouth ity of tablet 00:00: daily. [place] [facility] spironolact 0 Yes 25mg Take 25 mg Univers one 25 mg 8-03 by mouth. ity o f tablet 00:00: [place] [facility] spironolact 2020-0 Yes 25mg Take 25 mg Univers one 25 mg 8-03 by mouth. ity o f tablet 00:00: [place] [facility] spironolact 0 Yes 25mg Take 25 mg Univers one 25 mg 8-03 by mouth. ity o f tablet 00:00: [place] [facility] Branch spironolact 2021-0 Yes 25mg Take 25 mg Univers one 25 mg 8-03 by mouth. ity o f tablet 00:00: [place] [facility] Branch spironolact 2021-0 Yes 25mg Take 25 mg Univers one 25 mg 8-03 by mouth. ity o f tablet 00:00: [place] [facility] spironolact 2021-0 Yes 25mg Take 25 mg Univers one 25 mg 8-03 by mouth. ity o f tablet 00:00: [place] [facility] Branch spironolact 2021-0 Yes 25mg Take 25 mg Univers one 25 mg 8-03 by mouth. ity o f tablet 00:00: [place] [facility] Branch spironolact 2021-0 Yes 25mg Take 25 mg Univers one 25 mg 8-03 by mouth. ity o f tablet 00:00: [place] [facility] rosuvastati 2021-0 Yes 5mg Take 5 mg U nivers n 5 mg 4-21 by mouth. ity of tablet 00:00: [place] [facility] rosuvastati 2021-0 Yes 5mg Take 5 mg U nivers n 5 mg 4-21 by mouth. ity of tablet 00:00: [place] [facility] rosuvastati 2021-0 Yes 5mg Take 5 mg U nivers n 5 mg 4-21 by mouth. ity of tablet 00:00: [place] [facility] rosuvastati 2021-0 Yes 5mg Take 5 mg U nivers n 5 mg 4-21 by mouth. ity of tablet 00:00: [place] [facility] rosuvastati 2021-0 Yes 5mg Take 5 mg U nivers n 5 mg 4-21 by mouth. ity of tablet 00:00: [place] [facility] rosuvastati 2021-0 Yes 5mg Take 5 mg U nivers n 5 mg 4-21 by mouth. ity of tablet 00:00: [place] [facility] rosuvastati 2021-0 Yes 5mg Take 5 mg U nivers n 5 mg 4-21 by mouth. ity of tablet 00:00: [place] [facility] rosuvastati 2021-0 Yes 5mg Take 5 mg U nivers n 5 mg 4-21 by mouth. ity of tablet 00:00: [address] sitagliptin 2018-04 Yes 2{tbl} QD Take 2 [facility] -metformin 0-[address] () 10:01: mouth [facility]osp[facility] 50-1,000 mg 42 daily. l per tablet sitagliptin 2018-04 Yes 2{tbl} QD Take 2 [facility] -metformin 0-[address] () 10:01: mouth [facility] 50-1,000 mg 42 daily. l per tablet omeprazole Yes TAKE 1 [facility] (PriLOSEC) 5-22 CAPSULE(20 st 20 MG 00:00: MG) BY [facility]osp[facility] capsule 00 MOUTH l DAILY omeprazole Yes TAKE 1 [facility] di (PriLOSEC) 5-22 CAPSULE(20 st 20 MG 00:00: MG) BY [facility]osp[facility] capsule 00 MOUTH l DAILY mometasone- Yes 1{puff} Q.5D Inhale 1 [facility] formoterol 5-[address] (DULERA 00:00: (two) Hospita 200) 200-5 00 times a l mcg/actuati day. on inhaler mometasone- Yes 1{puff} Q.5D Inhale 1 [facility] formoterol 5-[address] (DULERA 00:00: (two) [facility]ospita 200) 200-5 00 times a l mcg/actuati day. on inhaler montelukast Yes TAKE 1 Meth rita (SINGULAIR) 4-03 TABLET(10 st 10 mg 00:00: MG) BY [facility]ospita tablet 00 MOUTH l EVERY NIGHT montelukast Yes TAKE 1 Meth rita (SINGULAIR) 4-03 TABLET(10 st 10 mg 00:00: MG) BY Hospita tablet 00 MOUTH l EVERY NIGHT albuterol Yes 180ug Q4H Inhale 180 M ethodi sulfate 90 3-[address] mcg/actuati 00:00: 4 (four) Ho [facility] on aerosol 00 hours. l powdr breath activated albuterol Yes 180ug Q4H Inhale 180 M ethodi sulfate 90 3-[address] mcg/actuati 00:00: 4 (four) Ho spita on aerosol 00 hours. l powdr breath activated DULERA 2015-04 Yes [facility] 200-5 2-24 st mcg/actuati 00:00: Hospit a on inhaler 00 l DULERA 2015-04 Yes [facility] 200-5 2-24 st mcg/actuati 00:00: Hospit a on inhaler 00 l JARDIANCE 2015-04 Yes [facility] 25 mg 2-12 st tablet 00:00: Hospita 00 l JARDIANCE 2015-04 Yes [facility] 25 mg 2-12 st tablet 00:00: Hospita 00 l fluticasone 2015-04 Yes 1{spray QD 1 spray [facility] (FLONASE) 1-21 } into each st 50 00:00: nostril Hospita mcg/actuati 00 daily. l on nasal spray fluticasone 2015-04 Yes 1{spray QD 1 spray [facility] (FLONASE) 1-21 } into each st 50 00:00: nostril Hospita mcg/actuati 00 daily. l on nasal spray azithromyci 2015-04 Yes TK 1 T PO M ethodi n 1-[address] (ZITHROMAX) 00:00: PACKAGE [facility] felice 250 MG 00 DIRECTIONS l tablet azithromyci 2015-04 Yes TK 1 T PO M ethodi n 1-[address] (ZITHROMAX) 00:00: PACKAGE [facility] felice 250 MG 00 DIRECTIONS l tablet Immunizations Ordered Filled Immunization Date Status Comments [facility] e Immunization Name Name SARS-COV-2 COVID-19 2020-07-03 Completed Unive rsity of PFIZER VACCINE 00:00:00 [facility] SARS-COV-2 COVID-19 2020-07-03 Completed Unive rsity of PFIZER VACCINE 00:00:00 [facility] SARS-COV-2 COVID-19 2020-07-03 Completed Unive rsity of PFIZER VACCINE 00:00:00 [facility] SARS-COV-2 COVID-19 2020-07-03 Completed Unive rsity of PFIZER VACCINE 00:00:00 [facility] SARS-COV-2 COVID-19 2020-07-03 Completed Unive rsity of PFIZER VACCINE 00:00:00 [facility] SARS-COV-2 COVID-19 2020-07-03 Completed Unive rsity of PFIZER VACCINE 00:00:00 [facility] SARS-COV-2 COVID-19 2020-07-03 Completed Unive rsity of PFIZER VACCINE 00:00:00 [facility] SARS-COV-2 COVID-19 2020-07-03 Completed Unive rsity of PFIZER VACCINE 00:00:00 [facility] SARS-COV-2 COVID-19 2020-06-12 Completed Unive rsity of PFIZER VACCINE 00:00:00 [facility] SARS-COV-2 COVID-19 2020-06-12 Completed Unive rsity of PFIZER VACCINE 00:00:00 [facility] SARS-COV-2 COVID-19 2020-06-12 Completed Unive rsity of PFIZER VACCINE 00:00:00 [facility] SARS-COV-2 COVID-19 2020-06-12 Completed Unive rsity of PFIZER VACCINE 00:00:00 [facility] SARS-COV-2 COVID-19 2020-06-12 Completed Unive rsity of PFIZER VACCINE 00:00:00 [facility] SARS-COV-2 COVID-19 2020-06-12 Completed Unive rsity of PFIZER VACCINE 00:00:00 [facility] SARS-COV-2 COVID-19 2020-06-12 Completed Unive rsity of PFIZER VACCINE 00:00:00 [facility] SARS-COV-2 COVID-19 2020-06-12 Completed Unive rsity of PFIZER VACCINE 00:00:00 [facility] INFLUENZA QUAD PF 2016-02-[address] (0.5ML VIAL) 00:00:00 Hospital INFLUENZA QUAD PF 2016-02-[address] (0.5ML VIAL) 00:00:00 Hospital Vital Signs Vital Name Observation Time Observation Value Comments Source Systolic blood 2021-06-01 14:18:00 122 mm[Hg] Univer sity of pressure [facility] Diastolic blood 2021-06-01 14:18:00 65 mm[Hg] Unive rsity of pressure [facility] Heart rate 2021-06-01 14:18:00 66 /min [facility] Body temperature 2021-06-01 14:18:00 36.17 [place]awn Univ ersity of [facility] Respiratory rate 2021-06-01 14:18:00 16 /min [facility] Body height 2021-06-01 14:18:00 175.3 cm [facility] Body weight 2021-06-01 14:18:00 114.76 kg [facility] BMI 2021-06-01 14:18:00 37.36 kg/m2 [facility] Oxygen saturation in 2021-06-01 14:18:00 99 /min [facility] Arterial blood by [facility] Pulse oximetry Branch Procedures Procedure Date / Time Performed Performing Clinician Sourc e POCT URINALYSIS AUTO 2021-06-01 14:24:00 [facility] Plan of Care Planned Activity Planned Date Details Comments Source Future Scheduled 2021-12-02 HEPATITIS B VACCINES Met [facility] Test 10:16:24 (1 of 3 - 3-dose series) [code = HEPATITIS B VACCINES (1 of 3 - 3-dose series)] Future Scheduled 2021-12-02 COVID-19 VACCINE (#1) Me [facility] Test 10:16:24 [code = COVID-19 VACCINE (#1)] Future Scheduled 2021-12-02 Pneumococcal Vaccine: [facility] Hospital Test 10:16:24 Pediatrics (0 to 5 Years) and At-Risk Patients (6 to 64 Years) (1 - PCV) [code = Pneumococcal Vaccine: Pediatrics (0 to 5 Years) and At-Risk Patients (6 to 64 Years) (1 - PCV)] Future Scheduled 2021-12-02 DIABETES: RETINAL EYE Me [facility] Test 10:16:24 EXAM [code = DIABETES: RETINAL EYE EXAM] Future Scheduled 2021-12-[address] [facility] Test 10:16:24 [code = DIABETIC FOOT EXAM] Future Scheduled 2021-12-[address] [facility] Test 10:16:24 [code = URINE MICROALBUMIN] Future Scheduled 2021-12-02 Hepatitis C screening [facility] Hospital Test 10:16:24 (procedure) [code = 592715943] Future Scheduled 2021-12-02 COLONOSCOPY SCREENING [facility] Hospital Test 10:16:24 [code = COLONOSCOPY SCREENING] Future Scheduled 2021-12-02 SHINGLES VACCINES (1 Met [facility] Test 10:16:24 of 2) [code = SHINGLES VACCINES (1 of 2)] Future Scheduled 2021-12-02 INFLUENZA VACCINE Method [facility] Hospital Test 10:16:24 [code = INFLUENZA VACCINE] Future Scheduled 2021-12-02 HEPATITIS B VACCINES Met [facility] Test 10:16:24 (1 of 3 - 3-dose series) [code = HEPATITIS B VACCINES (1 of 3 - 3-dose series)] Future Scheduled 2021-12-02 COVID-19 VACCINE (#1) [facility] Hospital Test 10:16:24 [code = COVID-19 VACCINE (#1)] Future Scheduled 2021-12-02 Pneumococcal Vaccine: [facility] Test 10:16:24 Pediatrics (0 to 5 Years) and At-Risk Patients (6 to 64 Years) (1 - PCV) [code = Pneumococcal Vaccine: Pediatrics (0 to 5 Years) and At-Risk Patients (6 to 64 Years) (1 - PCV)] Future Scheduled 2021-12-02 DIABETES: RETINAL EYE [facility] Test 10:16:24 EXAM [code = DIABETES: RETINAL EYE EXAM] Future Scheduled 2021-12-02 DIABETIC FOOT EXAM [facility] Test 10:16:24 [code = DIABETIC FOOT EXAM] Future Scheduled 2021-12-02 URINE MICROALBUMIN [facility] Test 10:16:24 [code = URINE MICROALBUMIN] Future Scheduled 2021-12-02 Hepatitis C screening [facility] Test 10:16:24 (procedure) [code = [id number]] Future Scheduled 2021-12-02 COLONOSCOPY SCREENING [facility] Test 10:16:24 [code = COLONOSCOPY SCREENING] Future Scheduled 2021-12-02 SHINGLES VACCINES (1 Met [facility] Test 10:16:24 of 2) [code = SHINGLES VACCINES (1 of 2)] Future Scheduled 2021-12-02 INFLUENZA VACCINE [facility] Hospital Test 10:16:24 [code = INFLUENZA VACCINE] Encounters Start End Encounter Admission Attending Care Care Encounter Source Date/Time Date/Time Type Type Clinicians Facility Department ID 2021-10-19 2021-10-19 RefSTEPHANIE Valentine [id number] Univers 00:00:00 00:00:00 Debbie RAMIRES [id number] [id number] [id number] Ma dical NAL [address] [place] [address] 2021-09-14 2021-09-14 Refill [facility] [id number] Univers 00:00:00 00:00:00 Debbie [place] [id number] i [id number] [id number] [address] 2021-08-26 2021-08-26 [facility] [id number] Q-20 Univers 10:30:00 10:30:00 DEBBIE [id number] ity of [facility] 2021-08-10 2021-08-10 [facility] [id number] Univers 00:00:00 00:00:00 Management Tabitha RAMIRES [id number] [facility] [id number] [phone] [facility] NAL [address] [place] [address] 2021-08-10 2021-08-10 Telephone [facility] [id number] Univers 00:00:00 00:00:00 Debbie [place] [id number] i [id number] [id number] Ma dical NAL [address] [place] [address] 2021-08-10 2021-08-10 Refill [facility] [id number] Univers 00:00:00 00:00:00 Debbie [place] [id number] i ty [id number] [id number] Ma dical NAL [address] [place] [address] 2021-06-02 2021-06-02 [facility] [id number] Univers 00:00:00 00:00:00 Management Analia Guthrie SARATON [id number] [id number] [id number] [address] 2021-06-01 2021-06-01 Outpatient R EVELIO, [facility] [id number] Univers 08:45:00 08:44:[address] [facility] 2021-06-01 2021-06-01 Office [facility] [id number] Univers 08:00:00 08:37:07 Visit Analia RAMIRES [id number] wisambrayan henriquez [place] [id number] Reynaldothi ROSECLEOPATRA [id number] [facility] Results Test Description Test Time Test Comments [...] 3267) Clear Lab Interpretation (test code = 92208-1) [facility]normal [facility] [id number] 14:25:00 Test Item Value Reference Range Interpretation [...] (test code = Negative Negative - Negative 326) POCT U BLD (test code = 3257) Negative Negative - Negative POCT U COLOR (test code = Yellow 3266) POCT U APPEAR (test code = Clear 326) Lab Interpretation (test code Abnormal = 51844-7) [facility]
[2021-12-22 14:37] LABS: Absolute Lymphocytes (CBC) 2.5 K/uL (0.7-4.9); Hematocrit 39.5 % (39.6-49.0); Lymphocytes % 29.1 % (15.3-44.8); MPV 7.9 fL (7.6-11.3); RBC Red Blood Cell Count 4.93 M/uL (4.33-5.43)
[2021-12-22 14:44] LABS: Protime INR 1.17
[2021-12-22 14:51] LABS: Potassium 3.9 mmol/L (3.5-5.1)
--- NOTE | 2021-12-22 19:52 | ER ---
Nurse's Notes [facility] Name: Jose E Yañez Age: 61 yrs Sex: Male : 1960 Arrival Date: 12/22/2021 Time: 12:51 Bed 24 Private MD: Jorge Blackman Diagnosis: Cutaneous abscess of right lower limb Presentation: 12/22 13:52 Chief complaint: Patient states: Dr. Robert sent pt to be admitted , abscess to right iw knee. Coronavirus screen: At this time, the client does not indicate any symptoms associated with coronavirus-19. Ebola Screen: Patient negative for fever greater than or equal to 101.5 degrees Fahrenheit, and additional compatible Ebola Virus Disease symptoms Patient denies exposure to infectious person. Patient denies travel to an Ebola-affected area in the 21 days before illness onset. No symptoms or risks identified at this time. Onset of symptoms was December 22, 2021. 13:52 Method Of Arrival: Ambulatory iw 13:52 Acuity: IVANNA 3 iw Historical: - Allergies: 13:52 Sulfa (Sulfonamide Antibiotics); iw - PMHx: 13:52 Atrial fibrillation; diabetes mellitus; Hypertensive disorder; iw Screenin:00 Abuse screen: Denies threats or abuse. Denies injuries from another. ha1 21:00 Nutritional screening: No deficits noted. Tuberculosis screening: No symptoms or risk ha1 factors identified. Fall Risk None identified. Assessment: 21:00 General: Appears uncomfortable, Behavior is calm, cooperative. Pain: Complains of pain ha1 in right lower leg Pain currently is 8 out of 10 on a pain scale. Quality of pain is described as burning, Alleviated by medications. Neuro: Level of Consciousness is awake, alert, obeys commands, Oriented to person, place, time, situation. Cardiovascular: Patient's skin is warm and dry. Respiratory: Airway is patent Trachea midline Respiratory effort is even, unlabored, Respiratory pattern is regular, symmetrical. GI: No signs and/or symptoms were reported involving the gastrointestinal system. Abdomen is non-distended, obese. : No signs and/or symptoms were reported regarding the genitourinary system. Derm: Wound noted right lower leg Other: cover with coban. dressing dry. Musculoskeletal: Range of motion: intact in all extremities, Swelling present in right lower leg. 22:00 Reassessment: Patient and/or family updated on plan of care and expected duration. Pain ha1 level reassessed. Patient is alert, oriented x 3, equal unlabored respirations, skin warm/dry/pink. 23:19 Reassessment: Patient and/or family updated on plan of care and expected duration. Pain ha1 level reassessed. Patient is alert, oriented x 3, equal unlabored respirations, skin warm/dry/pink. Vital Signs: 13:53 BP 141 / 73; Pulse 69; Resp 16; Temp 97.4; Pulse Ox 97% on R/A; iw 21:00 BP 147 / 78; Pulse 62; Resp 16 S; Pulse Ox 97% on R/A; ha1 23:23 BP 146 / 74; Pulse 70; Resp 18 S; Pulse Ox 97% on R/A; ha1 ED Course: 12:51 Patient arrived in ED. mr 12:51 Jorge Blackman MD is Private Physician. mr 13:11 [facility] Ann [facility] cp 13:11 Cornelius Gibson MD is Attending Physician. cp 13:52 Triage completed. iw 13:53 Arm band placed on. iw 14:24 Inserted saline lock: 20 gauge in right forearm, using aseptic technique. Blood kc6 collected. 14:24 Procalcitonin Sent. kc6 14:24 Lactate Sent. kc6 14:24 Basic Metabolic Panel Sent. kc6 14:24 CBC with Diff Sent. kc6 14:24 PT-INR Sent. kc6 19:51 Alona Encarnacion PA-C is Hospitalizing Provider. cp 20:42 Katina Rand RN is Primary Nurse. kd3 21:00 Patient has correct armband on for positive identification. ha1 Administered Medications: 21:00 Drug: vancoMYCIN 1 grams Route: IVPB; Infused Over: 2 hrs; Site: right forearm; ha1 23:15 Follow up: Response: No adverse reaction; IV Status: Completed infusion; IV Intake: ha1 250ml Intake: 23:15 IV: 250ml; Total: 250ml. ha1 Outcome: 19:52 Decision to Hospitalize by Provider. cp 12/23 09:59 Patient left the ED. [facility] Signatures: Twila Kidd mr Meryl Atkins RN RN Cornelius Ann PA PA cp Doucette, Kyli, RN RN kd3 Geeta Griffith, RN RN jh6 Amara Aceves, RN RN ha1 Maribel Badillo kc6 Corrections: (The following items were deleted from the chart) 12/22 23:18 21:50 General: Appears uncomfortable, Behavior is calm, cooperative, 1 [facility] 23:18 21:50 Pain: Complains of pain in right lower leg Pain currently is 8 out of 10 on a [facility] pain scale. Quality of pain is described as burning, Alleviated by medications, [facility] 23:18 21:50 Neuro: Level of Consciousness is awake, alert, obeys commands, Oriented to 1 person, place, time, situation, [facility] 23:18 21:50 Cardiovascular: Patient's skin is warm and dry. 1 [facility] 23:18 21:50 Respiratory: Airway is patent Trachea midline Respiratory effort is even, ha1 unlabored, Respiratory pattern is regular, symmetrical, [facility] 23:18 21:50 GI: No signs and/or symptoms were reported involving the gastrointestinal system. ha1 Abdomen is non-distended, obese, [facility] 23:18 21:50 : No signs and/or symptoms were reported regarding the genitourinary system. 11 23:18 21:50 Derm: Wound noted right lower leg Other: cover with coban. dressing dry. 1 [facility] 23:18 21:50 Musculoskeletal: Range of motion: intact in all extremities, Swelling present in 1 right lower leg [facility] 23:18 22:40 Reassessment: Patient and/or family updated on plan of care and expected ha1 duration. Pain level reassessed. Patient is alert, oriented x 3, equal unlabored respirations, skin warm/dry/pink. ha1
--- NOTE | 2021-12-22 19:53 | EDPHYS ---
Physician Documentation [facility] Name: Jose E Yañez Age: 61 yrs Sex: Male : 1960 Arrival Date: 12/22/2021 Time: 12:51 Bed 24 Private MD: Jorge Blackman ED Physician Cornelius Gibson HPI: 12/22 14:15 This 61 yrs old Male presents to ER via Ambulatory with complaints of Abscess. cp 14:15 The patient presents with an abscess of the right lower leg. cp 14:15 Description: draining, erythematous, swollen. cp 14:15 Onset: The symptoms/episode began/occurred 2 week(s) ago. cp 14:15 Associated signs and symptoms: The patient has no apparent associated signs or symptoms.cp 14:15 Patient recently hospitalized about 2 weeks ago for cellulitis and abscess to right cp lower leg. I\T\D was performed by DR Jerome and patient reports he currently taking oral antibiotics. Historical: - Allergies: 13:52 Sulfa (Sulfonamide Antibiotics); iw - PMHx: 13:52 Atrial fibrillation; diabetes mellitus; Hypertensive disorder; iw ROS: 14:20 Constitutional: Negative for body aches, chills, fever, poor PO intake. cp 14:20 Cardiovascular: Negative for chest pain, palpitations. cp 14:20 Respiratory: Negative for cough, shortness of breath, wheezing. 14:20 Abdomen/GI: Negative for abdominal pain, nausea, vomiting, and diarrhea. 14:20 Skin: Positive for abscess, cellulitis, of the right lower leg. 14:20 Neuro: Negative for altered mental status, dizziness, weakness. 14:20 All other systems are negative. cp Exam: 14:25 Constitutional: The patient appears in no acute distress, alert, awake, cp non-diaphoretic, non-toxic, well developed, well nourished. 14:25 ENT: External ear(s): are unremarkable, Nose: is normal, Mouth: is normal, Posterior pharynx: Airway: no evidence of obstruction, patent. 14:25 Chest/axilla: Inspection: normal. 14:25 Cardiovascular: Rate: normal, mild pitted edema of right foot. 14:25 Respiratory: the patient does not display signs of respiratory distress, Respirations: normal, no use of accessory muscles, no retractions, labored breathing, is not present, Breath sounds: are clear throughout, no decreased breath sounds, no stridor, no wheezing. 14:25 Abdomen/GI: Exam negative for discomfort, distension, guarding, Inspection: abdomen appears normal. 14:25 Back: pain, is absent, ROM is normal. 14:25 Skin: abscess, that is moderate sized, of the upper aspect anterior right lower leg, with drainage, that is purulent, with surrounding cellulitis, open wound noted to lower aspect of right lower leg that is packed with scant drainage, minimal erythema. 14:25 Neuro: Orientation: to person, place \T\ time. Mentation: is normal, Motor: moves all fours, strength is normal, Sensation: is normal, Gait: is steady. 14:25 Head/Face: Normocephalic, atraumatic. cp 14:25 Eyes: Periorbital structures: appear normal, Conjunctiva: normal, no exudate, no injection, Lids and lashes: appear normal, bilaterally. Vital Signs: 13:53 BP 141 / 73; Pulse 69; Resp 16; Temp 97.4; Pulse Ox 97% on R/A; iw 21:00 BP 147 / 78; Pulse 62; Resp 16 S; Pulse Ox 97% on R/A; ha1 23:23 BP 146 / 74; Pulse 70; Resp 18 S; Pulse Ox 97% on R/A; ha1 MDM: 13:56 Patient medically screened. cp 14:00 Differential diagnosis: abscess, cellulitis, osteomyelitis, sepsis. cp 16:15 Data reviewed: vital signs, nurses notes, I have discussed the patient's cp presentation/case with the attending Emergency Department Physician; and as a result, I will admit patient. 16:15 Physician consultation: Gorge Robert MD was contacted at 16:15, regarding consult, cp patient's condition, wants patient admitted to hospitalist. 12/22 13:55 Order name: Basic Metabolic Panel 12/22 13:55 Order name: CBC with Diff 12/22 13:55 Order name: PT-INR 12/22 13:55 Order name: Lactate 12/22 13:55 Order name: Procalcitonin 12/22 14:39 Order name: CBC with Automated Diff; Complete Time: 15:56 EDMS 12/22 14:44 Order name: Protime (+INR); Complete Time: 15:56 EDMS 12/22 14:48 Order name: Lactate; Complete Time: 15:56 EDMS 12/22 14:52 Order name: Basic Metabolic Panel; Complete Time: 15:56 EDMS 12/22 15:08 Order name: Procalcitonin; Complete Time: 15:56 EDMS 12/23 01:33 Order name: Glucose, Ancillary Testing EDMS 12/23 02:26 Order name: SARS RAPID kd3 12/23 02:56 Order name: CBC with Automated Diff EDMS 12/23 03:02 Order name: SARS-COV-2 Antigen Rapid EDMS 12/22 13:55 Order name: Cardiac monitoring; Complete Time: 23:34 12/22 13:55 Order name: IV Saline Lock; Complete Time: 14:24 12/22 13:55 Order name: Labs collected and sent; Complete Time: 14:24 12/22 13:55 Order name: O2 Per Protocol; Complete Time: 21:01 12/22 13:55 Order name: O2 Sat Monitoring; Complete Time: 21:01 12/23 03:05 Order name: Basic Metabolic Panel EDMS 12/23 03:05 Order name: Phosphorus EDMS 12/23 03:05 Order name: Magnesium EDMS 12/23 07:02 Order name: Glucose, Ancillary Testing EDMS Administered Medications: 21:00 Drug: vancoMYCIN 1 grams Route: IVPB; Infused Over: 2 hrs; Site: right forearm; ha1 23:15 Follow up: Response: No adverse reaction; IV Status: Completed infusion; IV Intake: ha1 250ml Disposition Summary: 12/22/21 19:52 Hospitalization Ordered Hospitalization Status: Inpatient Admission cp Provider: Alona Encarnacion cp Condition: Stable cp Problem: new cp Symptoms: are unchanged cp Bed/Room Type: Standard cp Location: [facility] ER HOLD(12/22/21 21:55) eb1 Room Assignment: ERHOLD-(12/22/21 21:55) eb1 Diagnosis - Cutaneous abscess of right lower limb cp Forms: - Medication Reconciliation Form cp - SBAR form cp Signatures: Dispatcher [employer] EDMS Meryl Atkins RN RN iw Page, Corey, PA PA cp Carol Astorga RN RN eb Amara Aceves RN SANDI 1 Corrections: (The following items were deleted from the chart) 21:55 19:52 Telemetry/MedSurg (Inpatient) cp eb1 21:55 19:52 cp eb1 12/24 00:12/23 14:25 Constitutional: The patient appears in no acute distress, alert, awake, cp non-diaphoretic, non-toxic, well developed, well nourished, cp 12/24 00:12/23 14:25 Head/Face: Normocephalic, atraumatic. cp cp 12/24 00:12/23 14:25 Eyes: Periorbital structures: appear normal, Conjunctiva: normal, no cp exudate, no injection, Lids and lashes: appear normal, bilaterally, cp 12/24 00:12/23 14:25 ENT: External ear(s): are unremarkable, Nose: is normal, Mouth: is normal, cp Posterior pharynx: Airway: no evidence of obstruction, patent, cp 12/24 00:12/23 14:25 Chest/axilla: Inspection: normal, cp cp 12/24 00:12/23 14:25 Cardiovascular: Rate: normal, cp cp 12/24 00:12/23 14:25 Respiratory: the patient does not display signs of respiratory distress, cp Respirations: normal, no use of accessory muscles, no retractions, labored breathing, is not present, Breath sounds: are clear throughout, no decreased breath sounds, no stridor, no wheezing, cp 12/24 00:12/23 14:25 Abdomen/GI: Exam negative for discomfort, distension, guarding, Inspection: cp abdomen appears normal, cp 12/24 00:12/23 14:25 Back: pain, is absent, ROM is normal, cp cp 12/24 00:12/23 14:25 Skin: abscess, that is moderate sized, of the upper aspect anterior right cp lower leg, with drainage, that is purulent, with surrounding cellulitis, open wound noted to lower aspect of right lower leg that is packed with scant drainage, minimal erythema. cp 12/24 00:12/23 14:25 Neuro: Orientation: to person, place \T\ time. Mentation: is normal, Motor: cp moves all fours, strength is normal, Sensation: is normal, Gait: is steady, cp 12/24 02:03 12/22 14:20 All other systems are negative, cp cp
[2021-12-22] MEDS ORDERED: NA CHLORIDE 0.9% 250 ML ONE (20:55)
[2021-12-22] MEDS ORDERED: VANCOMYCIN 1 GM/VIAL ONE (20:55)
--- NOTE | 2021-12-22 23:23 | P.HP ---
Certification for Inpatient Patient admitted to: Inpatient With expected LOS: <2 Midnights Patient will require the following post-hospital care: None Practitioner: I am a practitioner with admitting privileges, knowledge of patient current condition, hospital course, and medical plan of care. Services: Services provided to patient in accordance with Admission requirements found in Title 42 Section 412.3 of the Code of Federal Regulations Patient History Date of Service: 12/23/21 Reason for admission: Cellulitus/Abscess RLE History of Present Illness: Patient is a 61 year old male with history of paroxysmal atrial fibrillation, insulin dependent type II diabetes mellitus, peripheral artery disease, hypertension, and dyslipidemia who presented to the ED with complaints of right lower extremity abscess. Patient was recently discharged from this facility 1 week ago after undergoing treatment of cellulitus and abscess of RLE. At that time, There were 2 nodules anterior to the tibia in 2 different locations, 1 near the tibial plateau and 1 just above the ankle. Both soft and tender and minimal fluctuance concerning for developing abscess. I&D of a mid-tibial abscess was performed, he was treated with IV antibiotics, and discharged with oral antibiotics. He followed up with Jakob mcleod who sent him to ED. His labs are unremarkable except for hyperglycemia. He was started on vancomycin. Vital signs stable. He is admitted for further treatment. Allergies Sulfa (Sulfonamide Antibiotics) Allergy (Verified 12/14/21 22:47) Unknown Home medications list reviewed: Yes Home Medications: Rosuvastatin Calcium 5 mg PO BEDTIME 10/07/19 Cetirizine HCl 1 tab PO DAILY 12/14/21 Insulin Aspart [Novolog Flexpen] 100 units SQ SEECOM 12/14/21 Insulin Glargine,Hum.rec.anlog [Lantus] 5 units SQ SEECOM 12/14/21 Linagliptin/Metformin HCl [Jentadueto 2.5 mg-1000 mg Tab] 1 tab PO BID 12/14/21 lisinopriL [Lisinopril] 1 tab PO DAILY 12/14/21 Metoprolol Tartrate [Lopressor] 100 mg PO BID 12/15/21 Cephalexin 500 mg PO BID 7 Days #14 tab 12/19/21 Doxycycline Hyclate 100 mg PO BID 7 Days #14 tab 12/19/21 - Past Medical/Surgical History Diabetic: Yes -: HTN -: DM -: Afib -: rt foot fx x2 -: cervical neck sx Psychosocial/ Personal History: 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 - Family History Dad -: Other (see notes) Notes: Alzheimers Mom -: Other (see notes) Notes: circulatory problems - Social History Smoking Status: Never smoker Alcohol use: No CD- Drugs: No Caffeine use: No Place of Residence: Home Review of Systems Musculoskeletal: Leg Pain Integumentary: Rash Physical Examination - Physical Exam General: Alert, In no apparent distress HEENT: Atraumatic, PERRLA, EOMI, Sclerae nonicteric Neck: Supple, 2+ carotid pulse no bruit, No LAD, Without JVD or thyroid abnormality Respiratory: Clear to auscultation bilaterally, Normal air movement Cardiovascular: Regular rate/rhythm, Normal S1 S2 Gastrointestinal: Normal bowel sounds, No tenderness Musculoskeletal: No tenderness Integumentary: Erythema, Warmth, Other (abscess and cellulitus RLE) Neurological: Normal speech, Normal strength at 5/5 x4 extr, Normal tone, Normal affect - Studies Laboratory Data (last 24 hrs) 12/22/21 14:19: PT 12.9 H, INR 1.17 12/22/21 14:19: WBC 8.50, Hgb 12.6 L, Hct 39.5 L, Plt Count 484 H 12/22/21 14:19: Sodium 136, Potassium 3.9, BUN 8, Creatinine 0.67, Glucose 315 H Assessment and Plan - Problems (Diagnosis) (1) Cellulitis and abscess of leg Current Visit: Yes Status: Acute (2) Type 2 diabetes mellitus Current Visit: Yes Status: Acute Qualifiers: Diabetes mellitus detention insulin use: with detention use Diabetes mellitus complication status: with hyperglycemia Qualified Code(s): E11.65 - Type 2 diabetes mellitus with hyperglycemia; 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 (3) Hypertension Current Visit: Yes Status: Chronic Qualifiers: Hypertension type: primary hypertension Qualified Code(s): I10 - Essential (primary) hypertension (4) Atrial fibrillation Current Visit: Yes Status: Chronic Qualifiers: Atrial fibrillation type: paroxysmal Qualified Code(s): I48.0 - Paroxysmal atrial fibrillation - Plan -NPO at midnight -Continue vancomycin -Gentle IV hydration -Glucose monitoring with moderate sliding scale -General surgery planning for I&D tomorrow -Monitor and replete electrolytes per protocol -Reconcile and continue home medications -SCDs for VTE prophylaxis -Full code Discharge Plan: Home Plan to discharge in: 48 Hours - Advance Directives Does patient have a Living Will: No Does patient have a Durable POA for Healthcare: No - Code Status/Comfort Care Code Status Assessed: Yes (Full) Critical Care: No Time Spent Managing Pts Care (In Minutes): 50
[2021-12-23] MEDS ORDERED: ONDANSETRON 4 MG/2 ML VIAL IV PRN (00:44)
[2021-12-23] MEDS ORDERED: VANCOMYCIN 1 GM in NA CHLORIDE 0.9% 250 ML IVPB SCH (00:44)
[2021-12-23] MEDS: INSULIN -REGULAR HUMAN 50 UNIT/0.5 ML ML SQ SCH ×5 (00:44→20:46)
[2021-12-23] MEDS: NA CHLORIDE 0.9% 1,000 ML IV SCH ×3 (00:44→20:17)
[2021-12-23] MEDS ORDERED: ACETAMINOPHEN 500 MG TAB PO PRN (00:44)
[2021-12-23] MEDS ORDERED: INSULIN -REGULAR HUMAN 50 UNIT/0.5 ML ML ONE ×2 (01:52→07:05)
[2021-12-23] MEDS ORDERED: NA CHLORIDE 0.9% 1,000 ML ONE ×2 (01:52→10:03)
[2021-12-23 02:40] VITALS: BMI 35.7
[2021-12-23 02:51] LABS: Absolute Lymphocytes (CBC) 2.8 K/uL (0.7-4.9); Hematocrit 33.3 % (39.6-49.0); Lymphocytes % 39.6 % (15.3-44.8); MCV 78.7 fL (80-100); MPV 7.5 fL (7.6-11.3); RBC Red Blood Cell Count 4.23 M/uL (4.33-5.43)
[2021-12-23 03:00] LABS: Magnesium 1.6 mg/dL (1.8-2.4); Phosphorus 2.9 mg/dL (2.5-4.9); Potassium 3.9 mmol/L (3.5-5.1)
[2021-12-23] MEDS ORDERED: VANCOMYCIN 1 GM in NA CHLORIDE 0.9% 250 ML IVPB ONE (03:00)
[2021-12-23 03:01] LABS: SARS-CoV-2 Antigen Rapid Res Negative (Negative)
[2021-12-23] MEDS ORDERED: VANCOMYCIN 1 GM/VIAL ONE (05:27)
[2021-12-23] MEDS ORDERED: NA CHLORIDE 0.9% 250 ML ONE (05:27)
[2021-12-23] MEDS ORDERED: MAGNESIUM SULFATE 1 gm IVPB 1 GM/100 ML BAG IV ONE (06:34)
[2021-12-23] MEDS ORDERED: Magnesium Sulfate 2gm IVPB 2 G/50 ML BAG IV ONE (06:57)
[2021-12-23 10:01] LABS: Urine Bacteria <20 /HPF (<20); Urine Bilirubin NEGATIVE (Negative); Urine Blood Negative (Negative); Urine Clarity Clear (Clear); Urine Color Light-Yellow (Yellow); Urine Glucose 4+ (Over) (Negative); Urine Mucus Slight /HPF (None Seen); Urine Protein TRACE (Negative); Urine RBC <5 /HPF (None Seen); Urine Urobilinogen Normal (Normal)
[2021-12-23] MEDS ORDERED: BUPIVACAINE 0.25% PF 10 ML VIAL ONE (10:08)
[2021-12-23] MEDS ORDERED: SODIUM HYPOCHLORITE 0.25% 473 ML ONE (10:08)
[2021-12-23] MEDS ORDERED: propofoL 200 MG/20 ML VIAL IV ONE ×2 (10:35→11:10)
[2021-12-23] MEDS ORDERED: LIDOCAINE 1% MPF 5 ML VIAL ONE (10:35)
[2021-12-23] MEDS ORDERED: FENTANYL CITR 100 MCG/2 ML ONE (10:35)
[2021-12-23] MEDS ORDERED: KETOROLAC 30 MG/ML INJ ONE (11:01)
--- NOTE | 2021-12-23 11:08 | P.OP ---
Preoperative diagnosis: Abscess of RIGHT Tibial Plateau skin Postoperative diagnosis: Abscess of RIGHT Tibial Plateau skin Primary procedure: Debridement of RIGHT Tibial skin Anesthesia: MAC + Local Estimated blood loss: <5cc Specimen: cultures sent, debridement tissue Findings: necrosis with small abscess of right tibial skin Complications: None Transferred to: Recovery Room Condition: Good
[2021-12-23] MEDS ORDERED: ONDANSETRON 4 MG/2 ML VIAL ONE (11:10)
[2021-12-23] MEDS ORDERED: HYDROCODONE/APAP 5/325 MG TAB PO PRN (11:16)
[2021-12-23] MEDS: FENTANYL CITR 100 MCG/2 ML ONE ×3 (11:35→12:08)
[2021-12-23] MEDS ORDERED: VANCOMYCIN 2 GM in NA CHLORIDE 0.9% 500 ML IVPB SCH ×3 (12:00→17:00)
--- NOTE | 2021-12-23 13:16 | OP ---
Date of Procedure: 12/23/2021 Surgeon: Gorge Robert MD, Preoperative Diagnosis: Abscess of skin of right tibial plateau. Postoperative Diagnosis: Abscess of skin of right tibial plateau. Procedure Performed: 1.Incision and drainage of skin abscess of right tibial skin. 2.Debridement of necrotic tissue on right tibial skin. Anesthesia: MAC plus local with 0.25% Marcaine. Estimated Blood Loss: Less than 5 cc. Specimen: Culture sent and debridement tissue. Findings: 1.Small abscess of the skin of the tibia plateau on right. 2.Necrotic tissue extending to the fascia overlying the tibial plateau. Complications: None. Disposition: The patient was transferred to recovery room in good condition. Procedure In Detail: After informed consent was obtained, the patient was brought to the operating r oom, prepped and draped in the usual sterile fashion after adequate anesthesia was achieved. I used additional anesthesia to circumferentially anesthetize the skin over the right tibial plateau where a n abscess was noted. Abscess material was emanating from the anterior skin. As such, this was cultu red for both aerobic and anaerobic speciation. At this point, I then made an elliptical incision juan antonio und down through subcutaneous tissues with a 15-blade for approximately 3.5 cm x 3 cm in an elongated incision. Ultimately, I encountered necrotic tissue, which extended to the fascia overlying the tib ial plateau bone. This was all debrided sharply using a combination of sharp dissection as well as c urette and electrocautery was used to achieve hemostasis and the area was copiously irrigated and pac ked with sterile dressings. The patient tolerated the procedure well without evidence of complicatio n and transferred to PACU in good condition. All counts were correct at the end of the case. SIM/NIKKY Voice ID: [id number] Report ID: [id number]
[2021-12-23] MEDS: CODEINE 30MG/APAP 300MG TAB PO PRN ×3 (14:59→23:04)
[2021-12-23] MEDS: VANCOMYCIN 1.75 GM in NA CHLORIDE 0.9% 500 ML IVPB SCH (17:23)
--- NOTE | 2021-12-23 19:11 | P.PN ---
Subjective Date of Service: 12/23/21 Chief Complaint: Cellulitus/Abscess RLE Patient has no new complain. Status post incision and drainage today by Dr. Robert. Physical Examination - Vital Signs Temperature: 97.3 F Blood Pressure: 160/74 Pulse: 60 Respirations: 16 Pulse Ox (%): 98 Assessment And Plan - Plan Physical Exam General: Alert, In no apparent distress Respiratory: Clear to auscultation bilaterally, Normal air movement Cardiovascular: Regular rate/rhythm, Normal S1 S2 Gastrointestinal: Normal bowel sounds, No tenderness Integumentary: Multiple abscesses on the right leg, status post I&D and dressed. Neurological: No focal motor deficit. Plan: Continue antibiotics. Pain management as needed Continue IV fluid. Follow cultures. Resume home dose Lantus insulin. Insulin sliding scale. General surgery to follow for wound care.
[2021-12-24] MEDS: VANCOMYCIN 1.75 GM in NA CHLORIDE 0.9% 500 ML IVPB SCH (05:00)
[2021-12-24] MEDS ORDERED: VANCOMYCIN 500 MG/VIAL ONE (05:33)
[2021-12-24 05:59] LABS: Magnesium 1.9 mg/dL (1.8-2.4); Potassium 3.9 mmol/L (3.5-5.1)
[2021-12-24] MEDS: INSULIN -REGULAR HUMAN 50 UNIT/0.5 ML ML SQ SCH ×2 (07:30→11:30)
--- NOTE | 2021-12-24 08:40 | P.DS ---
Admission Date: 12/22/21 Discharge Date: 12/24/21 Disposition: ROUTINE DISCHARGE Discharge Condition: FAIR Reason for Admission: Cellulitus/Abscess RLE - Problems (1) Cellulitis and abscess of leg Current Visit: Yes Status: Acute (2) Type 2 diabetes mellitus Current Visit: Yes Status: Acute Qualifiers: Diabetes mellitus alf insulin use: with alf use Diabetes mellitus complication status: with hyperglycemia Qualified Code(s): E11.65 - Type 2 diabetes mellitus with hyperglycemia; Z79.4 - retirement (current) use of insulin (3) Hypertension Current Visit: Yes Status: Chronic Qualifiers: Hypertension type: primary hypertension Qualified Code(s): I10 - Essential (primary) hypertension Brief History of Present Illness: Patient is a 61 year old male with history of paroxysmal atrial fibrillation, insulin dependent type II diabetes mellitus, peripheral artery disease, hypertension, and dyslipidemia who presented to the ED with complaints of right lower extremity abscess. Patient was recently discharged from this facility 1 week ago after undergoing treatment of cellulitus and abscess of RLE. At that time, There were 2 nodules anterior to the tibia in 2 different locations, 1 near the tibial plateau and 1 just above the ankle. Both soft and tender and minimal fluctuance concerning for developing abscess. I&D of a mid-tibial abscess was performed, he was treated with IV antibiotics, and discharged with oral antibiotics. He followed up with Jakob who sent him to ED for developing abscess on the same leg. His labs are unremarkable except for hyperglycemia. He was started on vancomycin. Vital signs stable. Patient admitted for further management. Hospital Course: Patient admitted to the medical floor and started on IV vancomycin. Patient seen and evaluated by Dr. Robert who performed I&D of abscess on the right leg and debrided necrotic tissue. Wound culture showed no growth. No leukocytosis, no sepsis. Vitals are stable. Patient is deemed stable for discharge. Wound care instructions given. Patient will follow with Dr. Robert have within 1 week. He is prescribed Augmentin and doxycycline to continue treatment for the abscess. Vital Signs/Physical Exam: Temp Pulse Resp BP Pulse Ox 97.9 F 55 18 146/69 H 96 12/24/21 04:00 12/24/21 04:00 12/24/21 04:00 12/24/21 04:00 12/24/21 04:00 General: Alert, In no apparent distress, Oriented x3 HEENT: Mucous membr. moist/pink Neck: JVD not distended Respiratory: Clear to auscultation bilaterally, Normal air movement Cardiovascular: No edema, Regular rate/rhythm, Normal S1 S2 Gastrointestinal: Normal bowel sounds, Soft and benign, Non-distended Musculoskeletal: Other (Right leg in Bart wrap) Neurological: Normal strength at 5/5 x4 extr Laboratory Data at Discharge: WBC 7.00 K/uL (4.3-10.9) 12/23/21 02:27 Hgb 11.0 g/dL (13.6-17.9) L D 12/23/21 02:27 Hct 33.3 % (39.6-49.0) L 12/23/21 02:27 Plt Count 389 K/uL (152-406) 12/23/21 02:27 PT 12.9 SECONDS (9.5-12.5) H 12/22/21 14:19 INR 1.17 12/22/21 14:19 Sodium 139 mmol/L (136-145) 12/24/21 05:17 Potassium 3.9 mmol/L (3.5-5.1) 12/24/21 05:17 BUN 8 mg/dL (7-18) 12/24/21 05:17 Creatinine 0.54 mg/dL (0.55-1.3) L 12/24/21 05:17 Glucose 231 mg/dL (74-106) H 12/24/21 05:17 Phosphorus 2.9 mg/dL (2.5-4.9) 12/23/21 02:27 Magnesium 1.9 mg/dL (1.8-2.4) 12/24/21 05:17 Home Medications: Rosuvastatin Calcium 5 mg PO BEDTIME 10/07/19 Cetirizine HCl 1 tab PO DAILY 12/14/21 Insulin Aspart [Novolog Flexpen] 100 units SQ SEECOM 12/14/21 Insulin Glargine,Hum.rec.anlog [Lantus] 5 units SQ SEECOM 12/14/21 Linagliptin/Metformin HCl [Jentadueto 2.5 mg-1000 mg Tab] 1 tab PO BID 12/14/21 lisinopriL [Lisinopril] 1 tab PO DAILY 12/14/21 Metoprolol Tartrate [Lopressor] 100 mg PO BID 12/15/21 Amox/Clavulanate [Augmentin 875-125 Tab] 1 each PO BID #20 tab 12/24/21 Codeine/APAP [Tylenol #3*] 1 tab PO Q4H PRN #20 tab 12/24/21 Doxycycline Hyclate 100 mg PO BID 7 Days #14 tab 12/24/21 Sodium Hypochlorite [Dakin's] 473 ml TOP DAILY #473 ml 12/24/21 New Medications: Amox/Clavulanate [Augmentin 875-125 Tab] 1 each PO BID #20 tab Sodium Hypochlorite [Dakin's] 473 ml TOP DAILY #473 ml Doxycycline Hyclate 100 mg PO BID 7 Days #14 tab Codeine/APAP [Tylenol #3*] 1 tab PO Q4H PRN #20 tab PRN Reason: Pain Scale 5-7 (Moderate) Physician Discharge Instructions: Wound Care: Damp to dry dressing, wash with dakins solution, apply Kerlix and then BART wrap. Diet: ADA Activity: Ad cali Followup: Jorge Blackman MD [Primary Care Provider] - Gorge Robert MD [ACTIVE - CAN ADMIT] - (Next week.) Time spent managing pt's care (in minutes): 34
[2021-12-24] MEDS ORDERED: POTASSIUM CL SA 10 MEQ TAB PO ONE (09:00)
--- NOTE | 2021-12-24 09:57 | P.PN ---
Subjective Date of Service: 12/24/21 Chief Complaint: Cellulitus/Abscess RLE Subjective: Improving (no new issues) Physical Examination - Vital Signs Temperature: 97.9 F Blood Pressure: 146/69 Pulse: 55 Respirations: 18 Pulse Ox (%): 96 - Physical Exam General: Alert, In no apparent distress, Cooperative Integumentary: Other (RIGHT lower extremity wounds are clean and dry, well packed, wrapped well, no infection.) Assessment And Plan - Current Problems (Diagnosis) (1) Cellulitis and abscess of leg Current Visit: Yes Status: Acute Plan: - daily dressing changes with 0.25% dakins damp to dry, wrap and elevate - follow up in my clinic in 1 week - medical management
[2021-12-25 02:39] VITALS: TEMP 97.4; O2SAT 97
[2021-12-25 02:44] VITALS: BP 146/74
== END 2021-12-24 13:41 | disposition home or self-care (01) | DRG 264 ==
LOC: ER 12:49 → ERHOLD 22:40 → 4TH 12-23 14:18
PROVIDERS: ADMIT Internal Medicine; ATTEND Internal Medicine
PROC: 0H9KXZZ Drainage of Right Lower Leg Skin, External Approach (ICD-10-PCS; 2021-12-23)
PROC: 0JBN0ZZ Excision of Right Lower Leg Subcutaneous Tissue and Fascia, Open Approach (ICD-10-PCS; principal; 2021-12-23 13:00)
DX: E11.52 Type 2 diabetes mellitus with diabetic peripheral angiopathy with gangrene (principal); L03.115 Cellulitis of right lower limb; L02.415 Cutaneous abscess of right lower limb; E11.65 Type 2 diabetes mellitus with hyperglycemia; I10 Essential (primary) hypertension; I48.0 Paroxysmal atrial fibrillation; E78.5 Hyperlipidemia, unspecified; Z88.1 Allergy status to other antibiotic agents; Z79.4 Long term (current) use of insulin; Z79.899 Other long term (current) drug therapy; Z20.822 Contact with and (suspected) exposure to COVID-19
CPT/HCPCS: 36415; 80048; 81001; 82947; 83605; 83735; 84100; 84145; 85025; 85610; 87070; 87075; 87205; 87811; 88304; 96365; 96366; 99283; J1815; J2001; J2405; J2704; J3010; J3370; J3475; J7030; J7040; J7050